=== PATIENT | female | born 1990 | race Two or more races ===

== ENCOUNTER 2020-09-30 09:08 | Outpatient (REF) | payer OTHER, SELFPAY | END 2020-09-30 09:09 | disposition home or self-care (01) | LOC: HO.LAB 09:08 | PROVIDERS: PCP Internal Medicine; Visit Provider Internal Medicine | DX: Z20.828 Contact with and (suspected) exposure to other viral communicable diseases (principal) | CPT/HCPCS: C9803; U0003 ==

== ENCOUNTER 2021-02-11 14:24 | Outpatient (REF) | payer OTHER, SELFPAY ==
--- NOTE | ~2021-02-11 | MR_ITS ---
EXAMINATION: MR BRAIN WITHOUT AND WITH CONTRAST CLINICAL INFORMATION: Galactorrhea. COMPARISON: No relevant prior imaging. TECHNIQUE: Multiplanar MR imaging of the brain was performed without and with contrast. A total of 4.5 mL Gadavist was utilized for this examination. FINDINGS: Dedicated high-resolution imaging through the sella turcica reveals homogeneous enhancement within the anterior lobe of the pituitary gland with no identifiable mass or differential enhancement characteristics. The overall height of the pituitary tissue is within limits of normal variation. No suprasellar mass effect or chiasmatic compression. The pituitary stalk is midline. Cavernous sinuses enhance symmetrically. Cavernous internal carotid artery flow voids are maintained. Postcontrast images of the brain reveal no abnormal mass or enhancement elsewhere within the intracranial compartment. No intracranial mass effect or midline shift. No abnormal extra-axial collection. Lateral and third ventricles are normal. No hydrocephalus. Midline structures including the cervicomedullary junction are normal. No acute bone marrow signal changes. There is no mastoid middle ear effusion. No active paranasal sinus disease. MR/MR head/brain wo/w con IMPRESSION: Normal brain MRI. No identifiable intrasellar mass and and no abnormal differential enhancement characteristics within the anterior lobe of the pituitary gland.
== END 2021-02-11 14:25 | disposition home or self-care (01) ==
LOC: HO.MRI 14:24
PROVIDERS: Visit Provider Internal Medicine
DX: N64.3 Galactorrhea not associated with childbirth (principal)
CPT/HCPCS: 70553; A9585

== ENCOUNTER 2021-02-19 08:11 | Outpatient (REF) | payer OTHER, SELFPAY ==
--- NOTE | ~2021-02-19 | MM_ITS ---
EXAMINATION: MM DIAGNOSTIC DIGITAL BREAST TOMOSYNTHESIS, BILATERAL US DIAGNOSTIC ULTRASOUND BREAST, BILATERAL CLINICAL INFORMATION: 30-year-old with history 1 episode bloody discharge on left with squeezing, 2 drops. No recurrent discharge since. No history contralateral right discharge. No palpable mass. No known family history breast cancer. No prior breast imaging. The lifetime risk of breast cancer based on the Tyrer-Cuzick Model is 8%. COMPARISON: None (current study represents initial baseline exam). TECHNIQUE: Digital breast tomosynthesis is performed in both the craniocaudal and mediolateral oblique views along with computer-aided detection (CAD). Synthesized 2D images are generated from the tomosynthesis. Ultrasound left breast is targeted to the retroareolar region and circumferential periareolar region and posterior outer left breast. Ultrasound right breast is targeted to the upper outer quadrant. Grayscale imaging and color Doppler are performed without and with harmonics bilateral breasts. FINDINGS: There are scattered areas of fibroglandular density (ACR BI-RADS breast composition Category b). There is no mass or architectural abnormality or abnormal calcifications. No focal duct ectasia. Incidental parenchymal asymmetry is noted upper outer right breast and small island posterior outer left breast. Ultrasound bilateral breasts demonstrate no cystic or solid mass, architectural abnormality, or focal duct ectasia on either side. There is no intraductal lesion seen or abnormal color flow. No skin thickening or edema tracking in soft tissue planes. Results are discussed with the patient at time of visit. Patient confirms that the left discharge with 2 drops of bloody fluid with squeezing. She notes no persistent discharge since. Management options discussed including further evaluation with breast MR if the discharge recurs. MM/MM tomosynthesis diagnostic BI IMPRESSION: No mammographic evidence of malignancy. Unremarkable bilateral breast ultrasound. ASSESSMENT: BI-RADS 2: Benign RECOMMENDATION: 1. Patient should be managed based on the clinical impression. If the unilateral discharge recurs, further assessment of the breasts may be obtained with breast MR without and with gadolinium contrast. If there is bilateral nipple discharge, evaluation for systemic endocrine etiology would be recommended. 2. Otherwise, routine annual screening mammography, beginning age 40, or earlier as clinical risk factors warrant. This patient's information was entered into a reminder system with a target due date for their next mammogram.
== END 2021-02-19 08:12 | disposition home or self-care (01) ==
LOC: HO.MAMMO 08:11
PROVIDERS: Visit Provider Internal Medicine
DX: N64.3 Galactorrhea not associated with childbirth (principal)
CPT/HCPCS: 76642; 77062; 77066

== ENCOUNTER 2021-03-04 14:14 | Outpatient (REF) | payer OTHER, SELFPAY ==
[2021-03-04 14:44] LABS: COVID-19 Test Positive (Negative); IDNOW Serial# 55D5AD1C
== END 2021-03-04 14:15 | disposition home or self-care (01) ==
LOC: HO.LAB 14:14
PROVIDERS: Visit Provider Internal Medicine
DX: Z20.822 Contact with and (suspected) exposure to COVID-19 (principal)
CPT/HCPCS: 36415; 87635; C9803

== ENCOUNTER 2021-07-07 11:16 | Emergency (ER) | payer OTHER, SELFPAY ==
[2021-07-07 11:40] VITALS: BP 112/69; PULSE 80; RESP 16; TEMP 36.5; O2SAT 98; BMI 34.0
--- NOTE | 2021-07-07 12:17 | ED_ITS ---
HPI - Back Pain/Injury General Chief Complaint: Back Pain/Injury Stated Complaint: back pain Time Seen by Provider: 07/07/21 12:03 Source: patient Mode of arrival: ambulatory Limitations: no limitations History of Present Illness HPI Narrative: This is a 31 of the female that presents with 1 day of worsening back pain, it is intermittent 10/10 in nature and located solely to her lower back, free of radiation. She states yesterday at work she was lifting a 50 lb box, twisted and felt pain to her lower back. She states that the pain is worse with movement, and better at rest. She states she has had similar pain like this in the past. pain does not radiate into her legs, she denies any paresthesias, bladder/urinary incontinence, chest pain, shortness of breath, fevers, chills, she denies urinary symptoms. She is not an IV drug user, and denies any previous back surgeries. MD elicited complaint: back pain and back injury Pertinent past history: prior back pain Onset (ago): day(s) (1) Timing: intermittent Severity: severe Pain scale (0-10): 10 Similar Symptoms Previously: Yes Quality: spasming and throbbing Location: lumbar spine, right lower back and left lower back Radiation: none Exacerbating factors: movement, walking and lifting Relieving factors: immobilization Context: while lifting and turning/twisting Associated symptoms: denies other symptoms Work related injury: Yes Related Data Previous Rx's Medication Instructions Recorded acetaminophen 500 mg tablet 500 mg PO Q6H PRN #14 tab 07/07/21 (Tylenol Extra Strength) cyclobenzaprine 10 mg tablet 10 mg PO Q8H #14 tab 07/07/21 Allergies Allergy/AdvReac Type Severity Reaction Status Date / Time No Known Allergies Allergy Verified 02/03/21 18:04 [No Known Allergies*] Review of Systems Review of Systems: Constitutional : No trauma, No Weight loss, No Fever, No Chills, ENT/Mouth : No Hearing loss, No Ear Pain, No Nasal Congestion, No Sinus Pain, No Hoarseness, No sore throat, No Rhinorrhea, No Swallowing Difficulty Cardiovascular : No Chest Pain, No SOB Respiratory : No Cough, No Dyspnea Gastrointestinal : No Nausea, No Vomiting, No Diarrhea, No abdominal Pain, No Hematochezia, No Melena Genitourinary : No Dysuria, No Urinary Frequency, No Hematuria, No Urinary or Bowel Incontinence/retention Musculoskeletal : + Back pain, No neck pain, No joint stiffness, No joint swelling Skin : No Skin Lesions, No rash or signs of infection Neuro : No Weakness, No radiation, No Numbness, No Paresthesias, No headache, no loss of bowel or bladder incontinence, no saddle anesthesia, Focal weakness, No radiation Denies history of IV drug usage. Yes all other systems are reviewed and are negative [facility] Past Medical History Attestation statement: The following information was validated with the patient. Medical History Galactorrhea Nipple discharge, bloody Obese Pelvic pain in female Surgical History Hx laparoscopic cholecystectomy Hx of appendectomy Previous section Status post total abdominal hysterectomy Family History Family History Father No problems noted. Mother Hypertension Social History Social History Alcohol intake: current Alcohol intake frequency: holidays/special occasions only Alcohol type: beer Cigarettes Per Day: 6 Advance Directives: No Advance Directives Information Provided: No Patient : No Physical Exam Vital Signs: Vital Signs: Last Vital Signs Temp 97.7 F 07/07/21 11:40 Pulse 80 07/07/21 11:40 Resp 16 07/07/21 11:40 BP 112/69 07/07/21 11:40 Pulse Ox 98 07/07/21 11:40 Body Mass Index 34.0 vital signs have been reviewed as normal and appeared to be correct. Blood pressure normal. Heart rate normal. Respiration rate normal. Temperature normal. Oxygen saturation normal. Appearance: Alert. Oriented X3. No acute distress. Head: Normal external exam. Normocephalic. Atraumatic. No Benjamin signs noted. No raccoon eyes noted Eyes: PERRLA. EOMI. Conjunctiva and sclera normal. Eyelids normal. ENT: EAC normal. TM's Normal. Pharynx normal. Uvula midline. Moist mucous membranes. No trismus noted. No drooling noted. No muffled voice noted. Neck: Normal inspection. Neck supple. FROM. No adenopathy. Thyroid Normal. No meningeal signs. No neck mass noted. CVS: Normal heart rate and rhythm. Heart sound normal. No murmurs noted. Pulses normal throughout. Respiratory: No respiratory distress. Painless inspiration. Breath sounds normal. No wheezes/rales/rhonchi noted. Chest nontender. No accessory muscle usage noted or decreased air movement noted. Abdomen: Soft and nontender. Bowel sounds normal in all 4 quadrants. No distention noted. No organomegaly noted. No visible injury noted. Back: No CVA tenderness. + Full/ painfull range of motion noted. No obvious deformities, or edema. + Mild para-spinal muscular tenderness from lumbar region to coccyx. +Full ROM in back and lower extremities but painful. 5/5 strength hip extension/flexion, abduction, adduction. + Lumbar pain with hip flexion against resistance. + Straight leg raise test positive on right; +Straight leg raise test positive on left; Reflexes normal ankle and knee bilaterally; EHL motor strength normal bilaterally. No rashes/lesion/induration/fluctuance or signs infection noted. Skin: Skin warm and dry. Normal skin color. Normal skin turgor. No rashes/lesions/lacerations noted. Extremities: No lower extremity edema. Extremities exhibit normal range of motion. Extremities nontender. Neuro: Oriented X 3. No motor deficit. No sensory deficit. Reflexes normal. Patient has a normal steady gait. Course Course Course Narrative: This is a 31-year-old female presenting with 1 day of worsening lower back pain. This back pain started after lifting a heavy box at work that weighed approximately 50 lb, she states she lifted the box and twisted to the side, and ever since then she has been having intermittent nonradiating stabbing 10/10 lower back pain. She states that this has happened to her in the past. She denies any urinary symptoms. Upon physical examination the patient is visibly uncomfortable, she has pain with range of motion to the lower back. Positive straight leg raise bilaterally. She is neurologically intact based off of neuro exam. Pt c likely muscular pain, but could be herniated disc. Neuro exam shows no deficits. Not c/w AAA/epidural abscess/dissection.No high risk Hx (Incont, fever, immunosupp, recent surgery/LP, coag, signif trauma, wt loss, puls mass, hx/o Ca, TB, or IVDU) to warrant MRI/CT today. Not c/w Pyelo/UTI/kidney stone/spinal fx. Not cauda equina syndrome. Imaging not currently indicated. DC c meds and f/u. MDM - Back Pain/Injury Medical Records Attestation: I reviewed the patient's medical records. Discharge Plan Discharge Clinical Impression: Lumbago, Encounter for assessment of work-related causation of injury Patient Disposition: Home, Self-Care Instructions: Acute Low Back Pain (ED), Back Pain (ED), Return to Work Instructions (ED) Additional Instructions: Take all medications as prescribed Follow-up with your PCP in 2 days or follow-up with orthopedics if the pain persists for more than 2-3 weeks. Present to the emergency department with new or worsening symptoms, or if he de velops urinary incontinence, fevers, chills, shortness of breath, chest pain. Prescriptions: New cyclobenzaprine 10 mg tablet 10 mg PO Q8H Qty: 14 RF: 0 acetaminophen [Tylenol Extra Strength] 500 mg tablet 500 mg PO Q6H PRN (Reason: pain) Qty: 14 RF: 0 Referrals: Mima Caal MD [Physician] - 2 weeks (Follow-up if pain progresses, or worsens within 2 weeks) Andressa Taylor MD [Primary Care Provider] - 2 days Stand Alone Forms: Work/School Release Print Language: Czech
[2021-07-07] MEDS: Ketorolac Tromethamine 15 MG/ML VIAL 30 MG IM (12:51)
[2021-07-07] MEDS: Lidocaine 4 % Patch ADH..PATCH 1 PATCH TRANSDERMA (12:51)
== END 2021-07-07 12:58 | disposition home or self-care (01) ==
PROVIDERS: Emergency Provider Emergency Medicine; PCP Internal Medicine
DX: S39.92XA Unspecified injury of lower back, initial encounter (principal); X50.0XXA Overexertion from strenuous movement or load, initial encounter; X50.3XXA Overexertion from repetitive movements, initial encounter; X50.9XXA Other and unspecified overexertion or strenuous movements or postures, initial encounter; Y93.9 Activity, unspecified; Y92.9 Unspecified place or not applicable; Y99.0 Civilian activity done for income or pay; Z79.899 Other long term (current) drug therapy; F17.210 Nicotine dependence, cigarettes, uncomplicated; Z71.6 Tobacco abuse counseling
CPT/HCPCS: 96372; 99283; 99284; J1885

== ENCOUNTER 2021-07-27 12:15 | Outpatient (REF) | payer OTHER, SELFPAY ==
[2021-07-27 12:46] LABS: COVID-19 Test Negative (Negative)
== END 2021-07-27 12:16 | disposition home or self-care (01) ==
LOC: HO.LAB 12:15
PROVIDERS: PCP Internal Medicine; Visit Provider Internal Medicine
DX: Z20.822 Contact with and (suspected) exposure to COVID-19 (principal)
CPT/HCPCS: 36415; 87635; C9803

== ENCOUNTER 2021-08-13 15:38 | Outpatient (REF) | payer OTHER, SELFPAY | END 2021-08-13 15:39 | disposition home or self-care (01) | LOC: HO.LAB 15:38 | PROVIDERS: PCP Internal Medicine; Visit Provider Internal Medicine | DX: Z20.822 Contact with and (suspected) exposure to COVID-19 (principal) | CPT/HCPCS: C9803; U0003; U0005 ==

== ENCOUNTER 2021-09-22 12:34 | Outpatient (REF) | payer OTHER, SELFPAY | END 2021-09-22 12:35 | disposition home or self-care (01) | LOC: HO.LAB 12:34 | PROVIDERS: PCP Internal Medicine; Visit Provider Internal Medicine | DX: Z20.822 Contact with and (suspected) exposure to COVID-19 (principal) | CPT/HCPCS: C9803; U0003; U0005 ==

== ENCOUNTER 2022-09-07 13:32 | Outpatient (REF) | payer OTHER, SELFPAY ==
[2022-09-07 14:25] LABS: COVID-19 Test Negative (Negative); IDNOW Serial# BCCEAD1C
== END 2022-09-07 13:33 | disposition home or self-care (01) ==
LOC: HO.LAB 13:32
PROVIDERS: Visit Provider Internal Medicine
DX: Z20.822 Contact with and (suspected) exposure to COVID-19 (principal)
CPT/HCPCS: 87635; C9803

== ENCOUNTER 2022-11-21 16:22 | Emergency (ER) | payer OTHER, SELFPAY ==
--- NOTE | 2022-11-21 16:39 | ED.URI ---
HPI - URI/Sore Throat General Chief Complaint: General Medical Stated Complaint: pain in thraot Source: patient Mode of arrival: ambulatory History of Present Illness HPI Narrative: 32-year-old female with no significant past medical history presenting to the ED complaining of sore throat, dry cough, nasal congestion, and difficulty/painful swelling x2 days. Denies known fever, chills, ear pain, SOB/CP, sick contacts. MD elicited complaint: sore throat, rhinorrhea and nasal congestion Onset (ago): day(s) Related Data Previous Rx's Medication Instructions Recorded acetaminophen 500 mg tablet 500 mg PO Q6H PRN pain #14 tabs 07/07/21 (Tylenol Extra Strength) cyclobenzaprine 10 mg tablet 10 mg PO Q8H Muscle spasm #14 tabs 07/07/21 amoxicillin 875 mg-potassium 1 tab PO BID 7 days #14 tabs 11/21/22 clavulanate 125 mg tablet Allergies Allergy/AdvReac Type Severity Reaction Status Date / Time No Known Allergies Allergy Verified 11/21/22 16:44 [No Known Allergies*] Review of Systems Review of Systems: Constitutional: No Fever, No Chills ENT/Mouth: No Ear Pain, + Nasal Congestion, No Sinus Pain, + Hoarseness, + sore throat, + Rhinorrhea, + Swallowing Difficulty Cardiovascular: No Chest Pain, No SOB Respiratory: + Cough, No Sputum, No Wheezing Gastrointestinal: No Nausea, No Vomiting, No Abdominal pain Genitourinary: No Dysuria, No Urinary Frequency, No Hematuria, No Flank Pain Musculoskeletal: No joint pain, No Myalgias, No Joint Swelling Skin: No Skin Lesions, No rash Neuro: No Weakness Yes all other systems are reviewed and are negative Constitutional: Constitutional: Reports as per HPI [facility] Past Medical History Attestation statement: The following information was validated with the patient. Medical History Galactorrhea Nipple discharge, bloody Obese Pelvic pain in female Surgical History Hx laparoscopic cholecystectomy Hx of appendectomy Previous section Status post total abdominal hysterectomy Family History Family History Father No problems noted. Mother Hypertension Social History Social History Alcohol intake: current Alcohol intake frequency: holidays/special occasions only Alcohol type: beer Cigarettes Per Day: 6 Advance Directives: No Advance Directives Information Provided: No Physical Exam Vital Signs: Vital Signs: Last Vital Signs Temp 97.5 F 11/21/22 16:40 Pulse 97 11/21/22 16:40 Resp 16 11/21/22 16:40 BP 125/71 11/21/22 16:40 Pulse Ox 98 11/21/22 16:40 O2 Del Method 11/21/22 16:40 BMI result Body Mass Index 34.7 Const: General: cooperative, healthy appearing and no acute distress Orientation/consciousness: patient oriented x3 Limitations: no limitations HEENT: Other: Mildly muffled/hoarse voice Head: Yes normal to inspection and Yes atraumatic Ears: hearing grossly normal bilaterally, external ears normal, TM's normal bilaterally and mastoids normal General nose exam: Normal external nose present Face and sinus: Yes normal facial exam Mouth: no drooling Throat: Yes uvula midline, Yes abnormal tonsil (+ bilateral tonsillar swelling, erythema and exudate), No peritonsillar mass and No uvula laterally displaced Eyes: General: appearance normal, both eyes and all related structures EOM: EOMs intact bilaterally Neck: Other: + bilateral submandibular lymphadenopathy Neck: Yes normal visual inspection, Yes no meningeal signs and No anterior neck swelling Resp: Effort & Inspection: normal respiratory effort, no respiratory distress and no stridor Auscultation: clear to auscultation bilaterally Cardio: Rate: regular rate Heart sounds: S1 normal heart sound present and S2 normal heart sound present Skin: Rashes: no rashes Wounds: no wounds Neuro: General: patient oriented x3, tone normal and no meningeal signs Gait exam (Neuro): Normal gait present Extrem: General: Yes normal to inspection Course Course Course Narrative: RME-- 32yo F c/o sore throat x2 days with difficulty swallowing. Also reports dry cough & congestion. Denies fever, chills, N/V/D Muffled voice, +bilateral tonsillar swelling w/exudates noted. Uvula midline. No evidence of KINESIOLOGIST at this time COVID/FLU, rapid strep & PO Decadron & Ibuprofen ordered -1900--rapid strep positive. COVID-19/influenza/RSV negative. Patient tolerate p.o. medications without difficulty Results discussed with patient including worrisome signs and symptoms and strict return precautions, and when to return to the emergency department. They verbalized understanding and feel safe for discharge at this time. Medical Decision Making Medical Decision Making [facility] Narrative: 32-year-old female with no significant past medical history presenting to the ED complaining of sore throat, dry cough, nasal congestion, and difficulty/painful swelling x2 days. On exam vital signs stable, NAD, nontoxic appearing, mild hoarse/muffled voice, handling secretions, talking in complete sentences, bilateral tonsillar swelling with exudates noted, uvula midline, no evidence of KINESIOLOGIST. No evidence of mastoiditis or otitis. Concern for viral illness and strep pharyngitis vs mononucleosis Plan: COVID-19/influenza/RSV, rapid strep, p.o. Decadron, PO ibuprofen Please refer to course for remaining clinical decision making, interpretation of labs/imaging results, and discussions with consultants and/or family members. Differential Diagnosis Differential Diagnoses: The differential diagnosis associated with the presentation includes as above Lab Data [facility] Lab Attestation statement: I reviewed the patient's lab results. Labs: Lab Results 11/21/22 11/21/22 Range/Units 16:53 16:53 Influenza Type A (PCR) NEGATIVE (Negative) Influenza Type B (PCR) NEGATIVE (Negative) RSV RNA Qual (PCR) NEGATIVE (Negative) SARS-CoV-2 RNA (RT-PCR) NEGATIVE (Negative) S. pyogenes GrpA TORSTEN Positive A (Negative) Prescription Management I considered prescription management with: Pain Medication and Antibiotic Discharge Plan Discharge Clinical Impression: Strep pharyngitis Patient Disposition: Home, Self-Care Instructions: Strep Throat (ED) Additional Instructions: You have strep throat. Augmentin is antibiotic please take as prescribed. You were given a dose of oral steroid in the ED this will take 24 hours to fully kick in. Take Tylenol and Motrin at home for pain and swelling. Gargle with warm salt water. Please have close follow-up with her doctor. If symptoms persist or worsen, you develop high fever unresolved with medications, you are unable to swallow, shortness of breath return to the ED Tienes faringitis estreptoc?cica. Augmentin es un antibi?terrell, t?vázquez seg?n lo prescrito. Se le administr? julianne dosis de esteroides orales en el servicio de urgencias que tardar? 24 horas en hacer efecto por completo. [place] Tylenol y Motrin en casa para el dolor y la hinchaz?n. Claus g?rgaras con agua tibia con bertrand. Tenga un seguimiento cercano con montemayor m?dico. Si los s?ntomas persisten o empeoran, tiene fiebre dominic que no se resuelve con medicamentos, no puede tragar, dificultad para respirar, regrese al servicio de urgencias. Prescriptions: New amoxicillin-pot clavulanate 875-125 mg tablet 1 tab PO BID 7 Days Qty: 14 0RF No Action cyclobenzaprine 10 mg tablet 10 mg PO Q8H Qty: 14 0RF acetaminophen [Tylenol Extra Strength] 500 mg tablet 500 mg PO Q6H PRN (Reason: pain) Qty: 14 0RF Referrals: Andressa Taylor MD [Primary Care Provider] - 2 days Stand Alone Forms: Work/School Release Print Language: Mongolian
[2022-11-21 16:40] VITALS: BP 125/71; PULSE 97; RESP 16; TEMP 36.4; O2SAT 98; BMI 34.7
[2022-11-21 17:03] LABS: IDNOW Serial# 6674DD1D
[2022-11-21 17:04] LABS: Strep A Nucleic Acid Positive (Negative)
[2022-11-21 17:43] LABS: Influenza A PCR NEGATIVE (Negative); Influenza B PCR NEGATIVE (Negative); Resp Syncy Virus RNA Qual PCR NEGATIVE (Negative); SARS COV2 PCR INHOUSE NEGATIVE (Negative)
[2022-11-21] MEDS: Amoxicillin/Potassium Clav 875 MG TABLET PO (19:01)
[2022-11-21] MEDS: dexAMETHasone sod phosphate 10 MG/ML VIAL IVPUSH (19:01)
[2022-11-21] MEDS: Ibuprofen 800 MG TABLET PO (19:01)
== END 2022-11-21 19:11 | disposition home or self-care (01) ==
PROVIDERS: Physician Assistant; Emergency Provider Internal Medicine; PCP Internal Medicine
DX: J02.0 Streptococcal pharyngitis (principal); R07.0 Pain in throat; Z20.822 Contact with and (suspected) exposure to COVID-19; Z20.828 Contact with and (suspected) exposure to other viral communicable diseases
CPT/HCPCS: 0241U; 36415; 87651; 96374; 99283; 99284; J1100

== ENCOUNTER 2023-02-21 11:23 | Emergency (ER) | payer OTHER, SELFPAY ==
--- NOTE | ~2023-02-21 | US_ITS ---
EXAMINATION: US PELVIS CLINICAL INFORMATION: Lower abdominal pain. Question ovarian cyst. COMPARISON: Previous CT of the abdomen and pelvis 2018 TECHNIQUE: Ultrasound of the pelvis is performed using both transabdominal and transvaginal transducers along with Doppler. Transvaginal imaging is performed due to inadequate visualization transabdominally. FINDINGS: The uterus has been removed. There is a small amount of fluid seen in the endocervical canal. There are nabothian cysts in the cervix. The right ovary measures 2.2 x 1.9 x 2 cm. There is a small slightly complex right ovarian cyst with septations measuring 1.3 cm. According to patient age and size of cyst, no imaging follow-up recommended. The left ovary is normal and measures 3.3 x 2 4 x 2.9 cm. There is no fluid in the pelvis. US/US pelvic and transvaginal IMPRESSION: Post hysterectomy. Small amount of fluid in the endocervical canal. Nabothian cysts in the cervix. Small slightly complex right ovarian cyst measuring 1.3 cm.
[2023-02-21 11:31] VITALS: BP 129/76; PULSE 83; RESP 18; TEMP 36.6; O2SAT 98; BMI 34.0
[2023-02-21 11:47] LABS: MANUAL DIFF FLAG NO
[2023-02-21 11:49] LABS: Basophils Absolute Auto 0.1 X10*3/uL (0.0-0.2); Basophils Percent Auto 0.6 % (0-2); Eosinophils Absolute Auto 0.4 X10*3/uL (0.0-0.4); Eosinophils Percent Auto 4.4 % (0-4); Hemoglobin 13.3 g/dl (12.0-16.0); Imm Gran Abs Auto 0.04 X10*3/uL (0.00-0.03); Imm Gran Pct Auto 0.5 % (0.0-0.4); Lymphocytes Absolute Auto 2.2 X10*3/uL (1.2-4.9); Lymphocytes Percent Auto 25.6 % (20-40); Mean Corpuscular HGB Conc 31.7 g/dl (31.0-35.0); Mean Corpuscular Volume 85.2 fL (80.0-98.0); Mean Platelet Volume 9.8 fL (9.4-12.3); Monocytes Absolute Auto 0.6 X10*3/uL (0.1-1.2); Monocytes Percent Auto 6.7 % (2-11); Neutrophils Absolute Auto 5.3 x10*3/uL (2.0-8.3); Neutrophils Percent Auto 62.2 % (45-73); Platelet Count 351 X10*3/uL (160-400); Red Blood Count 4.93 X10*6/uL (4.20-5.50); Red Cell Distribution Width 13.8 % (11.0-16.0); White Blood Count 8.5 X10*3/uL (4.8-10.8)
[2023-02-21 11:51] LABS: Appearance Urine Clear; Color Urine Yellow; Glucose Urine UA Negative (Negative); Leukocyte Esterase Urine Negative (Negative); Nitrite Urine Negative (Negative); PH 7.5 (5.0-9.0); Specific Gravity - Urine 1.025 (1.005-1.025); Urine Blood Negative (Negative); Urine Ketones Negative (Negative); Urine Protein Trace mg/dL (Neg-Trace)
[2023-02-21 11:52] LABS: Urine Pregnancy NEGATIVE (NEGATIVE)
[2023-02-21 11:53] LABS: UPreg QC Valid YES
[2023-02-21 12:04] LABS: Anion Gap 10 (12-20); Blood Urea Nitrogen 7 mg/dL (9-16); Calcium 9.3 mg/dL (8.4-10.2); Carbon Dioxide 23 mmol/L (22-29); Chloride 110 mmol/L (96-108); Creatinine Clr Calc Pharmacy 97.2; Estimated Glomerular Filt Rate > 60; Glucose Random 123 mg/dL (60-115); Potassium 4.4 mmol/L (3.3-5.1); Sodium 139 mmol/L (135-145)
--- NOTE | 2023-02-21 16:27 | ED_ITS ---
HPI - General Adult General Chief complaint: Abdominal Pain Stated complaint: lower abd pain Time Seen by Provider: 02/21/23 16:27 Source: patient and director web Mode of arrival: ambulatory Limitations: language barrier History of Present Illness HPI narrative: Patient is a 32 year old assigned female at with a history of pelvic pain presenting to the emergency department today with left sided abdominal pain. Patient states that she had a brief episode of left sided abdominal pain that has since subsided. Patient states that she no longer has her uterus. Patient denies any dizziness, lightheadedness, fever, chills, blurry vision, double vision, loss of vision, chest pain, difficulty breathing, shortness of breath, back pain, night sweats, pain with urination, increased urinary frequency, increased urinary urgency, blood in her urine or stool, syncope or a near syncopal episode, recent trauma or falls, bowel incontinence, bladder incontinence, bowel retention, bladder retention, or any other complaints at this time. Onset (ago): day(s) (1) Location: abdomen Radiation: non-radiation Severity: mild Severity scale (1-10): 2 Quality: stabbing Pain Consistency: intermittent and now resolved Relieving factors: none Exacerbating factors: none Associated symptoms: denies other symptoms Treatments prior to arrival: none Related Data Previous Rx's Medication Instructions Recorded acetaminophen 500 mg tablet 500 mg PO Q6H PRN pain #14 tabs 07/07/21 (Tylenol Extra Strength) cyclobenzaprine 10 mg tablet 10 mg PO Q8H Muscle spasm #14 tabs 07/07/21 amoxicillin 875 mg-potassium 1 tab PO BID 7 days #14 tabs 11/21/22 clavulanate 125 mg tablet Allergies Allergy/AdvReac Type Severity Reaction Status Date / Time No Known Allergies Allergy Verified 02/21/23 11:31 [No Known Allergies*] Review of Systems Constitutional: Constitutional: Reports no additional constitutional complaints, Denies chills, Denies fever(s) and Denies night sweats Eyes: Eyes: Reports no additional eye complaints, Denies blurry vision, Denies change in vision, Denies diplopia, Denies eye discharge, Denies loss of vision and Denies eye pain ENT: Denies dizziness Cardiovascular: Cardiovascular: Reports no additional cardiovascular complaints, Denies chest pain, Denies lightheadedness, Denies Loss of Consc iousness and Denies dyspnea Respiratory: Respiratory: Reports no additional respiratory complaints and Denies dyspnea Gastrointestinal: Gastrointestinal: Reports no additional gastrointestinal complaints, Reports abdominal pain, Denies melena, Denies hematochezia, Denies change in bowel habits and Denies change in stool character Genitourinary: Genitourinary: Denies hematuria, Denies urinary frequency, Denies dysuria, Denies urinary incontinence, Denies urinary hesitancy and Denies urinary urgency Musculoskeletal: Musculoskeletal: Reports no additional musculoskeletal complaints, Denies numbness and Denies tingling Neurologic: Denies dizziness, Denies loss of vision, Denies numbness and Denies tingling Psychiatric: Psychiatric: Reports no additional psychiatric complaints Endocrine: Endocrine: Reports no additional endocrine complaints Hematologic/Lymphatic: Hematologic/Lymphatic: Reports no additional hematologic/lymphatic complaints Allergic/Immunologic: Allergic/Immunologic: Reports no additional allergic/immunologic complaints PMFSH Past Medical History Attestation statement: The following information was validated with the patient. Source: old records reviewed and nursing notes reviewed Medical History Galactorrhea Nipple discharge, bloody Obese Pelvic pain in female Surgical History Hx laparoscopic cholecystectomy Hx of appendectomy Previous section Status post total abdominal hysterectomy Family History Family History Father No problems noted. Mother Hypertension Social History Social History Alcohol intake: current Alcohol intake frequency: holidays/special occasions only Alcohol type: beer Cigarettes Per Day: 6 Advance Directives: No Physical Exam ED Vital Signs: Vital Signs - 24 hr 02/21/23 11:31 Temperature 98 F Pulse Rate 83 Respiratory Rate 18 Blood Pressure 129/76 Pulse Oximetry 98 BMI result Body Mass Index 34.0 Const General: cooperative, no acute distress, alert and awake Nutritional Appearance: well nourished Orientation/consciousness: patient oriented x3 Limitations: no limitations HENMT Head: Yes normal to inspection and Yes atraumatic Ears: hearing grossly normal bilaterally and external ears normal General nose exam: Normal external nose present, no nasal discharge noted and no epistaxis Face and sinus: Yes normal facial exam, No abrasion and No laceration Mouth: Normal oral and palatal mucosa present, no drooling and no muffled voice Eyes General: appearance normal, both eyes and all related structures Periorbital: periorbital findings normal Eyelids: Yes eyelids normal Conjunctivae: conjunctivae normal Pupils: Equal, round and reactive pupils present EOM: EOMs intact bilaterally Neck Neck: Yes normal visual inspection, Yes full ROM and Yes no lymphadenopathy Chest Chest palpation & inspection: normal inspection of the chest Resp Effort & Inspection: normal respiratory effort and able to speak in complete sentences GI Inspection: Yes normal to inspection Palpation (GI): Soft to palpation, not firm, nontender, no guarding and not rigid Neuro General: patient oriented x3 and moves all extremities Cranial nerves: Yes Equal, round and reactive pupils present Cognition (Neuro): normal cognition Motor exam (neuro): 5/5 motor strength present throughout Sensory Exam: Normal double simultaneous stimulation for sensation Coordination: [id number] test normal Extrem General: Yes normal to inspection, Yes full ROM and Yes capillary refill normal Psych Appearance: grossly normal Mental Status: mental status grossly normal Affect: normal affect Attitude: cooperative Thought process: Normal thought process present Thought content: Normal thought content present Insight: Good insight present (Psych) Medical Decision Making Medical Decision Making [facility] Narrative: Patient is a 32 year old assigned female at with a history of pelvic pain presenting to the emergency department today with left sided abdominal pain. Patient's physical exam was unremarkable. Patient's blood work was unremarkable. Patient's urine showed no acute process. Patient's pelvic US showed evidence of ovarian cysts. I explained my physical exam findings as well as all test results to the patient. I answered all questions asked by the patient. Patient received IM Toradol which she stated helped her symptoms significantly. I stressed the importance of the patient taking her medication as prescribed. I stressed the importance of the patient following up with her primary care provider. I stressed the importance of the patient returning to the emergency department imm ediately if her symptoms were to worsen or if she were to develop any dizziness, shortness of breath, difficulty breathing, chest pain, blurry vision, loss of vision, nausea, vomiting, abdominal pain, fever, chills, back pain, or any other complaints. Patient verbalized agreement and understanding with this treatment plan and discharge. Differential Diagnosis Differential Diagnoses: The differential diagnosis associated with the presen tation includes abdominal pain, ovarian cyst Lab Data MDM Lab Attestation statement: I reviewed the patient's lab results. 02/21/23 11:40 02/21/23 11:40 Labs: Lab Results 02/21/23 02/21/23 02/21/23 Range/Units 11:40 11:40 11:40 WBC 8.5 (4.8-10.8) X10*3/uL RBC 4.93 (4.20-5.50) X10*6/uL Hgb 13.3 (12.0-16.0) g/dl Hct 42.0 (37.0-47.0) % MCV 85.2 (80.0-98.0) fL MCH 27.0 (27.0-33.0) pg MCHC 31.7 (31.0-35.0) g/dl RDW 13.8 (11.0-16.0) % Plt Count 351 (160-400) X10*3/uL MPV 9.8 (9.4-12.3) fL Immature Gran % (Auto) 0.5 H (0.0-0.4) % Neut % (Auto) 62.2 (45-73) % Lymph % (Auto) 25.6 (20-40) % Hardy % (Auto) 6.7 (2-11) % Eos % (Auto) 4.4 H (0-4) % Baso % (Auto) 0.6 (0-2) % Lymph # (Auto) 2.2 (1.2-4.9) X10*3/uL Hardy # (Auto) 0.6 (0.1-1.2) X10*3/uL Eos # (Auto) 0.4 (0.0-0.4) X10*3/uL Baso # (Auto) 0.1 (0.0-0.2) X10*3/uL Abs Immat Gran (auto) 0.04 H (0.00-0.03) X10*3/uL Absolute Neuts (auto) 5.3 (2.0-8.3) x10*3/uL Absolute Nucleated RBC 0.000 (0.0-0.012) X10*3/uL Nucleated RBC % (auto) 0.0 (0.0-0.2) /100WBC Sodium 139 (135-145) mmol/L Potassium 4.4 (3.3-5.1) mmol/L Chloride 110 H (96-108) mmol/L Carbon Dioxide 23 (22-29) mmol/L Anion Gap 10 L (12-20) BUN 7 L (9-16) mg/dL Creatinine 0.79 (0.5-1.4) mg/dL Estim Creat Clear Calc 97.2 Estimated GFR > 60 Random Glucose 123 H (60-115) mg/dL Calcium 9.3 (8.4-10.2) mg/dL Urine Color Yellow Urine Appearance Clear Urine pH 7.5 (5.0-9.0) Ur Specific [place] 1.025 (1.005-1.025) Urine Protein Trace (Neg-Trace) mg/dL Urine Glucose (UA) Negative (Negative) mg/dL Urine Ketones Negative (Negative) mg/dL Urine Blood Negative (Negative) Urine Nitrite Negative (Negative) Ur Leukocyte Esterase Negative (Negative) Urine Test (NEGATIVE) 02/21/23 Range/Units 11:40 WBC (4.8-10.8) X10*3/uL RBC (4.20-5.50) X10*6/uL Hgb (12.0-16.0) g/dl Hct (37.0-47.0) % MCV (80.0-98.0) fL MCH (27.0-33.0) pg MCHC (31.0-35.0) g/dl RDW (11.0-16.0) % Plt Count (160-400) X10*3/uL MPV (9.4-12.3) fL Immature Gran % (Auto) (0.0-0.4) % Neut % (Auto) (45-73) % Lymph % (Auto) (20-40) % Hardy % (Auto) (2-11) % Eos % (Auto) (0-4) % Baso % (Auto) (0-2) % Lymph # (Auto) (1.2-4.9) X10*3/uL Hardy # (Auto) (0.1-1.2) X10*3/uL Eos # (Auto) (0.0-0.4) X10*3/uL Baso # (Auto) (0.0-0.2) X10*3/uL Abs Immat Gran (auto) (0.00-0.03) X10*3/uL Absolute Neuts (auto) (2.0-8.3) x10*3/uL Absolute Nucleated RBC (0.0-0.012) X10*3/uL Nucleated RBC % (auto) (0.0-0.2) /100WBC Sodium (135-145) mmol/L Potassium (3.3-5.1) mmol/L Chloride (96-108) mmol/L Carbon Dioxide (22-29) mmol/L Anion Gap (12-20) BUN (9-16) mg/dL Creatinine (0.5-1.4) mg/dL Estim Creat Clear Calc Estimated GFR Random Glucose (60-115) mg/dL Calcium (8.4-10.2) mg/dL Urine Color Urine Appearance Urine pH (5.0-9.0) Ur Specific [place] (1.005-1.025) Urine Protein (Neg-Trace) mg/dL Urine Glucose (UA) (Negative) mg/dL Urine Ketones (Negative) mg/dL Urine Blood (Negative) Urine Nitrite (Negative) Ur Leukocyte Esterase (Negative) Urine Test NEGATIVE (NEGATIVE) Independent Interpretation I performed an independent interpretation of an: Ultrasound Interpretation: My interpretation is in agreement with the radiologist's impression of this imaging study. EXAMINATION:? US PELVIS CLINICAL INFORMATION:? Lower abdominal pain. Question ovarian cyst. COMPARISON: Previous CT of the abdomen and pelvis 2017 TECHNIQUE: Ultrasound of the pelvis is performed using both transabdominal and transvaginal transducers along with Doppler. Transvaginal imaging is performed due to inadequate visualization transabdominally. FINDINGS: The uterus has been removed. There is a small amount of fluid seen in the endocervical canal. There are nabothian cysts in the cervix. The right ovary measures 2.2 x 1.9 x 2 cm. There is a small slightly complex right ovarian cyst with septations measuring 1.3 cm. According to patient age and size of cyst, no imaging follow-up recommended. The left ovary is normal and measures 3.3 x 2 4 x 2.9 cm. There is no fluid in the pelvis. US/US pelvic and transvaginal IMPRESSION: Post hysterectomy. Small amount of fluid in the endocervical canal. Nabothian cysts in the cervix. Small slightly complex right ovarian cyst measuring 1.3 cm. Dictated By: Anitra Contreras MD Signed By: Electronically signed by Anitra Contreras MD 02/21/23 [id number] Discharge Plan Discharge Clinical Impression: Ovarian cyst Patient Disposition: Home, Self-Care Instructions: Ovarian Cyst (ED) Additional Instructions: Follow up with your primary care provider and an OBGYN. Return to the emergency department immediately if your symptoms worsen or if you develop any dizziness, shortness of breath, difficulty breathing, chest pain, blurry vision, loss of vi silvina, nausea, vomiting, abdominal pain, fever, chills, back pain, or any other complaints. Claus un seguimiento con montemayor proveedor de atenci?n primaria y un obstetra y ginec?logo. Regrese al departamento de emergencias de inmediato si hugh s?ntomas empeoran o si presenta mareos, falta de aire, dificultad para respirar, dolor de pecho, visi?n borrosa, p?rdida de la visi?n, n?useas, v?mitos, dolor abdominal, fiebre, escalofr?os, dolor de espalda o cualquier otras quejas. Prescriptions: No Action cyclobenzaprine 10 mg tablet 10 mg PO Q8H Qty: 14 0RF acetaminophen [Tylenol Extra Strength] 500 mg tablet 500 mg PO Q6H PRN (Reason: pain) Qty: 14 0RF amoxicillin-pot clavulanate 875-125 mg tablet 1 tab PO BID 7 Days Qty: 14 0RF Referrals: Andressa Taylor MD [Primary Care Provider] - Emeka Jauregui MD [Physician] - (Call to establish and follow up with an OBGYN. Llame para establecer y hacer un seguimiento con un obstetra y ginec?logo. ) Stand Alone Forms: Work/School Release Print Language: Greek
== END 2023-02-21 17:16 | disposition home or self-care (01) ==
PROVIDERS: Emergency Provider Emergency Medicine; PCP Internal Medicine
DX: N83.209 Unspecified ovarian cyst, unspecified side (principal); R10.31 Right lower quadrant pain; N83.201 Unspecified ovarian cyst, right side; Z79.899 Other long term (current) drug therapy
CPT/HCPCS: 36415; 76830; 76856; 80048; 81003; 81025; 85025; 99282; 99284

== ENCOUNTER → 2023-04-14 15:08 | Outpatient (BNVA) | payer OTHER, SELFPAY | PROVIDERS: PCP Internal Medicine; Visit Provider Obstetrics & Gynecology | DX: N83.292 Other ovarian cyst, left side (principal); N88.8 Other specified noninflammatory disorders of cervix uteri; Z90.710 Acquired absence of both cervix and uterus | CPT/HCPCS: 99212 ==

== ENCOUNTER 2023-07-04 15:09 | Outpatient (AMB) | payer OTHER, SELFPAY ==
[2023-07-04 15:33] VITALS: BP 110/70; BMI 36.5
--- NOTE | 2023-07-04 15:33 | A.OFFVIS_ITS ---
Intake Vital Signs 07/04/23 15:33 Height 5 ft 1 in Weight 193 lb BMI 36.5 BP 110/70 Intake Visit Reasons: [employer] annual exam Intake Note: no concerns Sales Donor Recruitment Representative Required: Yes Sales Donor Recruitment Representative Language: Operations Section Manager Name: Debra BILLS Information Interpreted: non-clinical & clinical Ski Topper: Ski Topper Present (Debra BILLS) Accompanied by: Self / Same As Patient Allergies No Known Allergies [No Known Allergies*] Allergy (Verified 07/04/23 15:38) Is last menstrual period known: No HPI HPI Comments History of Present Illness Details Presenting for annual exam. No complaints. Last Pap was in 2014 was negative, no HPV done Pelvic ultrasound done in 03/08 showed a left 1.3 cm complex ovarian cyst PFSH Medical History Nipple discharge, bloody Pelvic pain in female Galactorrhea Obese Surgical History Previous section Status post total abdominal hysterectomy Hx laparoscopic cholecystectomy Hx of appendectomy Family History Father No problems noted. 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 Sexually active: Yes Female Reproductive History Menstrual Menopause type: surgical Total pregnancies: 4 Full term: 3 Number of Living Children: 3 Review of Systems Const All systems reviewed & are unremarkable except as noted in HPI and below Card Reports as per HPI and Reports no additional complaints Resp Reports as per HPI and Reports no additional complaints GI Reports as per HPI and Reports no additional complaints Reports as per HPI Physical Exam Vital Signs: Last Vital Signs BP 110/70 07/04/23 15:33 BMI result Body Mass Index 36.5 Const General: cooperative, healthy appearing and comfortable Chest Chest palpation & inspection: normal inspection of the chest Breast/axilla inspection: normal inspection of the breasts Resp Effort & Inspection: normal respiratory effort Auscultation: clear to auscultation bilaterally Percussion: percussion normal Cardio Rate: regular rate Rhythm: regular rhythm GI Palpation (GI): Soft to palpation and nontender General: Yes bladder normal to palpation External Female Exam: No lesion Speculum Exam - Vagina: normal appearance of the vagina, normal vaginal discharge and not erythematous Speculum Exam - Cervix: normal appearance of the cervix Bimanual exam- vagina & uterus: bladder normal to palpation and uterus absent Bimanual Exam- Adnexa, other: Other (No masses detected) Assessment & Plan Assessment & Plan (1) Well woman exam: Code(s): Z01.419 - Encounter for gynecological examination (general) (routine) without abnormal findings Plan: Cotesting done. Counseled the patient about the recommended dietary allowance of 1000 mg of Calcium & 600 IU of vitamin D. The patient was instructed to perform monthly self-breast exams and to schedule an annual exam in a year; All questions answered and the patient verbalized understanding. Instructed the patient to schedule annual exam in a year (2) Complex ovarian cyst: Code(s): N83.299 - Other ovarian cyst, unspecified side Plan: Pelvic ultrasound ordered, instructions given to patient to schedule a 2 week ultrasound follow-up appointment. All questions answered, the patient verbalized understanding Quality Reporting (2019) Adult ([facility] 138/12/08/68) Smoking risk assessment performed?: Yes Coding Level of Care Code Est Pt Prev Care 18-39y(74840) Diagnoses Well woman exam Z01.419 Complex ovarian cyst N83.299
== END 2023-07-04 16:11 | disposition home or self-care (01) ==
PROVIDERS: PCP Internal Medicine; Visit Provider Obstetrics & Gynecology
DX: Z01.419 Encounter for gynecological examination (general) (routine) without abnormal findings (principal); N83.299 Other ovarian cyst, unspecified side
CPT/HCPCS: 99395

== ENCOUNTER 2023-07-04 15:09 | Outpatient (REF) | payer OTHER, SELFPAY ==
[2023-07-08 02:59] LABS: HPV mRNA E6/E7 rflx Not Detected (Not Detected)
== END 2023-07-04 15:10 | disposition home or self-care (01) ==
LOC: HO.LNP 15:09
PROVIDERS: PCP Internal Medicine; Visit Provider Obstetrics & Gynecology
DX: Z01.419 Encounter for gynecological examination (general) (routine) without abnormal findings (principal); Z11.51 Encounter for screening for human papillomavirus (HPV); N83.299 Other ovarian cyst, unspecified side
CPT/HCPCS: 87624; 88142; 99395

== ENCOUNTER 2023-07-18 09:23 | Emergency (ER) | payer OTHER, SELFPAY ==
[2023-07-18 09:54] VITALS: BP 142/80; PULSE 80; RESP 19; TEMP 36.4; O2SAT 100; BMI 36.6
--- NOTE | 2023-07-18 10:36 | ED_ITS ---
HPI - General Adult General Chief complaint: Back Pain/Injury Stated complaint: Back pain Time Seen by Provider: 07/18/23 10:33 Source: patient and spanish speaking babysitter Mode of arrival: ambulatory Limitations: language barrier History of Present Illness HPI narrative: Patient is a 33 year old assigned female at with a history of ovarian cysts presenting to the emergency department today with right sided low back pain. Patient states that she was bent forward brushing her teeth when the pain came on. Patient states that movement makes it worse. Patient denies any dizziness, lightheadedness, abdominal pain, nausea, vomiting, fever, chills, blurry vision, double vision, loss of vision, chest pain, difficulty breathing, shortness of breath, night sweats, pain with urination, increased urinary frequency, increased urinary urgency, blood in her urine or stool, syncope or a near syncopal episode, recent trauma or falls, bowel incontinence, bladder incontinence, bowel retention, bladder retention, or any other complaints at this time. Onset (ago): minute(s) Location: back and right Severity: mild Severity scale (1-10): 3 Quality: aching and dull Pain Consistency: constant Relieving factors: none Exacerbating factors: none Associated symptoms: denies other symptoms Treatments prior to arrival: none Related Data Previous Rx's Medication Instructions Recorded cyclobenzaprine 5 mg tablet 5 mg PO TID PRN pain 7 days #21 07/18/23 tabs naproxen 500 mg tablet 500 mg PO BID 7 days #14 tabs 07/18/23 Allergies Allergy/AdvReac Type Severity Reaction Status Date / Time No Known Allergies Allergy Verified 07/04/23 15:38 [No Known Allergies*] Review of Systems Constitutional: Constitutional: Reports no additional constitutional complaints, Denies chills, Denies fever(s) and Denies night sweats Eyes: Eyes: Reports no additional eye complaints, Denies blurry vision, Denies change in vision, Denies diplopia, Denies eye discharge, Denies loss of vision and Denies eye pain ENT: Denies dizziness Cardiovascular: Cardiovascular: Reports no additional cardiovascular complaints, Denies chest pain, Denies lightheadedness, Denies Loss of Consciousness and Denies dyspnea Respiratory: Respiratory: Reports no additional respiratory complaints and Denies dyspnea Gastrointestinal: Gastrointestinal: Reports no additional gastrointestinal complaints, Denies abdominal pain, Denies melena, Denies hematochezia, Denies change in bowel habits and Denies change in stool character Genitourinary: Genitourinary: Denies hematuria, Denies urinary frequency, Denies dysuria, Denies urinary incontinence, Denies urinary hesitancy and Denies urinary urgency Musculoskeletal: Musculoskeletal: Reports no additional musculoskeletal complaints, Reports back pain, Denies numbness and Denies tingling Neurologic: Denies dizziness, Denies loss of vision, Denies numbness and Denies tingling Psychiatric: Psychiatric: Reports no additional psychiatric complaints Endocrine: Endocrine: Reports no additional endocrine complaints Hematologic/Lymphatic: Hematologic/Lymphatic: Reports no additional hematologic/lymphatic complaints Allergic/Immunologic: Allergic/Immunologic: Reports no additional allergic/immunologic complaints PMFSH Past Medical History Attestation statement: The following information was validated with the patient. Source: old records reviewed and nursing notes reviewed Medical History Well woman exam Nipple discharge, bloody Pelvic pain in female Galactorrhea Obese Surgical History Previous section Status post total abdominal hysterectomy Hx laparoscopic cholecystectomy Hx of appendectomy Family History Family History Father No problems noted. 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 Physical Exam ED Vital Signs: Vital Signs - 24 hr 07/18/23 09:54 Temperature 97.5 F Pulse Rate 80 Respiratory Rate 19 Blood Pressure 142/80 H Pulse Oximetry 100 Oxygen Delivery Method Room Air BMI result Body Mass Index 36.6 Const General: cooperative, no acute distress, alert and awake Nutritional Appearance: well nourished Orientation/consciousness: patient oriented x3 Limitations: no limitations HENMT Head: Yes normal to inspection and Yes atraumatic Ears: hearing grossly normal bilaterally and external ears normal General nose exam: Normal external nose present, no nasal discharge noted and no epistaxis Face and sinus: Yes normal facial exam, No abrasion and No laceration Mouth: Normal oral and palatal mucosa present, no drooling and no muffled voice Eyes General: appearance normal, both eyes and all related structures Periorbital: periorbital findings normal Eyelids: Yes eyelids normal Conjunctivae: conjunctivae normal Pupils: Equal, round and reactive pupils present EOM: EOMs intact bilaterally Neck Neck: Yes normal visual inspection, Yes full ROM and Yes no lymphadenopathy Chest Chest palpation & inspection: normal inspection of the chest Resp Effort & Inspection: normal respiratory effort and able to speak in complete sentences GI Inspection: Yes normal to inspection General: Yes no CVA tenderness Back/Spine/Pelvis Back: no CVA tenderness Cervical Spine: normal cervical lordosis and cervical ROM normal Thoracic/Lumbar Spine: thoracic and lumbar spine normal to inspection and thoraco-lumbar ROM normal Neuro General: patient oriented x3 and moves all extremities Cranial nerves: Yes Equal, round and reactive pupils present Cognition (Neuro): normal cognition Motor exam (neuro): 5/5 motor strength present throughout Sensory Exam: Normal double simultaneous stimulation for sensation Coordination: [id number] test normal Extrem General: Yes normal to inspection, Yes full ROM and Yes capillary refill normal Psych Appearance: grossly normal Mental Status: mental status grossly normal Affect: normal affect Attitude: cooperative Thought process: Normal thought process present Thought content: Normal thought content present Insight: Good insight present (Psych) Medical Decision Making Medical Decision Making MDM Narrative: Patient is a 33 year old assigned female at with a history of ovarian cysts presenting to the emergency department today with right sided back pain. Patient's physical exam was unremarkable. Patient's urine showed a possible UTI however, it is a low possibility and given the rest of the patient's clinical presentation, will wait until culture report to treat. I explained my physical exam findings as well as all test results to the patient. I answered all questions asked by the patient. Patient received IM toradol and PO Flexeril which she stated helped her symptoms significantly. I stressed the importance of the patient taking her medication as prescribed. I stressed the importance of the patient following up with her primary care provider. I stressed the importance of the patient returning to the emergency department immediately if her symptoms were to worsen or if she were to develop any dizziness, shortness of breath, difficulty breathing, chest pain, blurry vision, loss of vision, nausea, vomiting, abdominal pain, fever, chills, back pain, or any other complaints. Patient verbalized agreement and understanding with this treatment plan and discharge. Differential Diagnosis Differential Diagnoses: The differential diagnosis associated with the presentation includes Back pain Muscle spasm Lab Data [facility] Lab Attestation statement: I reviewed the patient's lab results. My interpretation of these results are in the [facility] rationale portion of this note. Labs: Lab Results 07/18/23 Range/Units 10:37 Urine Color Yellow Urine Appearance Clear Urine pH 6.0 (5.0-9.0) Ur Specific [place] 1.025 (1.005-1.025) Urine Protein Negative (Neg-Trace) mg/dL Urine Glucose (UA) Negative (Negative) mg/dL Urine Ketones Negative (Negative) mg/dL Urine Blood Trace H (Negative) Urine Nitrite Negative (Negative) Ur Leukocyte Esterase Negative (Negative) Urine RBC 3-5 H (0-2) /HPF Urine WBC 0-5 (0-5) /HPF Ur Squamous Epith Cells 3-5 (0-2) /HPF Urine Bacteria Trace (None Seen) Hyaline Casts 0-2 (0-2) /LPF Urine Test NEGATIVE (NEGATIVE) Prescription Management I considered prescription management with: Pain Medication (patient prescribed pain medication.) Discharge Plan Discharge Clinical Impression: Back pain Patient Disposition: Home, Self-Care Instructions: Back Pain (ED) Additional Instructions: Follow up with your primary care provider. Return to the emergency department immediately if your symptoms worsen or if you develop any dizziness, shortness of breath, difficulty breathing, chest pain, blurry vision, loss of vision, nausea, vomiting, abdominal pain, fever, chills, back pain, or any other complaints. Claus un seguimiento con montemayor proveedor de atenci?n primaria. Regrese al departamento de emergencias inmediatamente si hugh s?ntomas empeoran o si presenta mareos, dificultad para respirar, dificultad para respirar, dolor en el pecho, visi?n borrosa, p?rdida de la visi?n, n?useas, v?mitos, dolor abdominal, fiebre, escalofr?os, dolor de espalda o cualquier otras quejas. Prescriptions: New cyclobenzaprine 5 mg tablet 5 mg PO TID PRN (Reason: pain) 7 Days Qty: 21 0RF naproxen 500 mg tablet 500 mg PO BID 7 Days Qty: 14 0RF Referrals: Andressa Taylor MD [Primary Care Provider] - Stand Alone Forms: Work/School Release Print Language: Syriac
[2023-07-18 10:46] LABS: Appearance Urine Clear; Color Urine Yellow; Glucose Urine UA Negative (Negative); Leukocyte Esterase Urine Negative (Negative); Nitrite Urine Negative (Negative); Specific Gravity - Urine 1.025 (1.005-1.025); UMIC TRIGGER UACC YES; Urine Blood Trace (Negative); Urine Ketones Negative (Negative); Urine Protein Negative (Neg-Trace)
[2023-07-18 10:47] LABS: UPreg QC Valid YES; Urine Pregnancy NEGATIVE (NEGATIVE)
[2023-07-18 10:49] LABS: Bacteria Urine Trace (None Seen); Hyaline Casts Urine 0-2 /LPF (0-2); WBC Urine 0-5 /HPF (0-5)
[2023-07-18] MEDS: Ketorolac Tromethamine 15 MG/ML VIAL IM (11:55)
[2023-07-18] MEDS: Cyclobenzaprine HCl 5 MG TABLET PO (11:55)
== END 2023-07-18 12:00 | disposition home or self-care (01) ==
PROVIDERS: Emergency Provider Emergency Medicine; PCP Internal Medicine
DX: M54.50 Low back pain, unspecified (principal); Z79.899 Other long term (current) drug therapy
CPT/HCPCS: 81001; 81025; 96372; 99284; J1885

== ENCOUNTER 2023-07-18 14:43 | Outpatient (REF) | payer OTHER, SELFPAY ==
--- NOTE | ~2023-07-18 | US_ITS ---
EXAMINATION: US PELVIS CLINICAL INFORMATION: Ovarian cyst COMPARISON: Pelvic ultrasound 02/21/2023. TECHNIQUE: Ultrasound of the pelvis is performed using both transabdominal and transvaginal transducers along with Doppler. Transvaginal imaging is performed due to inadequate visualization transabdominally. FINDINGS: Uterus: Hysterectomy. Adnexa: The right ovary measures 2.5 x 1.5 x 1.6 cm, volume 3.1 mL. The right ovary appears normal. There is normal color flow in the right ovary. The left ovary measures 2.7 x 2.2 x 2.6 cm, volume 8.1 mL. 2.0 cm thinly septated cyst. This is almost certainly benign. No follow-up imaging is recommended. There is normal color flow in the left ovary. No free fluid. US/US pelvic and transvaginal IMPRESSION: Resolution of previously seen mildly complex cyst in the right ovary.
== END 2023-07-18 14:44 | disposition home or self-care (01) ==
LOC: HO.US 14:43
PROVIDERS: PCP Internal Medicine; Visit Provider Obstetrics & Gynecology
DX: N83.299 Other ovarian cyst, unspecified side (principal)
CPT/HCPCS: 76830; 76856

== ENCOUNTER 2023-08-19 09:41 | Outpatient (AMB) | payer OTHER, SELFPAY ==
--- NOTE | 2023-08-19 10:34 | AM.OFFWIN_ITS ---
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 Reports used a nebulizer with some relief. Patient reports son at home with similar symptoms. He reports the cough is very uncomfortable. Denies fevers, chills, chest pain, shortness of breath, nausea, vomiting, sore throat, ear pain, headache, vision changes, dizziness and weakness. Physical exam benign. Likely viral illness versus bronchitis. Unlikely pneumonia, pulmonary embolism, no signs of acute respiratory distress. Unlikely strep throat. Plan at this time COVID test, will discharge with prednisone, albuterol inhaler, benzonatate pearls for cough. Educated patient on diagnosis and treatment plan, answered all question, patient verbalizes understanding. At this time patient will be discharged home, advised to return with new or worsening symptoms. Educated on worrisome signs and symptoms and when to return. At this time I feel comfortable discharge home. [facility] Medical History Well woman exam Nipple discharge, bloody Pelvic pain in female Galactorrhea Obese Surgical History Previous section Status post total abdominal hysterectomy Hx laparoscopic cholecystectomy Hx of appendectomy Family History Father No problems noted. 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 Review of Systems Const Details: Constitutional : No Weight loss, No Fever, No Chills, No Fatigue, No Malaise ENT/Mouth : No sore throat, No Rhinorrhea Eyes: No Eye Pain, No Swelling, No Redness Cardiovascular : No Chest Pain, No SOB, No Dyspnea on Exertion, No Orthopnea, No Edema, No Palpitations Respiratory : + Cough, No Sputum, No Wheezing Gastrointestinal : No Nausea, No Vomiting, No Diarrhea, No Constipation, No abdominal Pain, No Hematochezia, No Melena Genitourinary : No Dysuria, No Urinary Frequency, No Hematuria, Musculoskeletal : No joint pain, No Myalgias, No Joint Swelling Skin : No Skin Lesions, No rash Neuro : No Weakness, No Numbness, No Dizziness, No Headache Psych : No Anxiety/Panic, No Depression All other systems reviewed and are negative All systems reviewed & are unremarkable except as noted in HPI and below Physical Exam Vital Signs: Last Vital Signs Temp 98.0 F 08/19/23 10:40 Pulse 88 08/19/23 10:40 BP 122/78 08/19/23 10:40 Pulse Ox 100 08/19/23 10:40 BMI result Body Mass Index 35.0 vss Appearance: Alert.? Oriented X3.? No acute distress.? Head: Normocephalic, atraumatic, no step-offs or deformities Eyes: Pupils equal, round and reactive to light.? Neck: Normal inspection.? Neck supple.? CVS: Normal heart rate and rhythm.? Pulses normal.? Respiratory: No respiratory distress.? Breath sounds normal.? Abdomen: Soft and nontender.? Skin: Skin warm and dry.? Normal skin color.? Normal skin turgor.? Extremities: No lower extremity edema.? No calf ttp. 5/5 strength to bilateral upper and lower extremities Neuro: Oriented X 3.? No motor deficit.? No sensory deficit. CN 2-12 intact Assessment & Plan Assessment & Plan (1) Upper respiratory infection: Code(s): J06.9 - Acute upper respiratory infection, unspecified Plan Take your medications as prescribed. If you were prescribed antibiotics today, it is important that you take your medication to their entirety, do not skip any doses, do not finish them early. Follow-up with your primary care provider this week. Return to the emergency department with new or worsening symptoms. Such as fevers, chills, chest pain, shortness of breath, nausea, vomiting, dizziness, headache, vision changes, lethargy In case of emergency call 911 Orders: Orders StevenaxOLTUS Covid-19 Ag Today J06.9 - Acute upper respiratory infection, unspecified Medications: New prednisone 40 mg (2 x 20 mg) PO DAILY 5 days 10 tabs 0RF albuterol sulfate 90 mcg/actuation 2 puffs inhalation Q6H PRN 6.7 grams 0RF shortness of breath or wheezing albuterol sulfate 2.5 mg (0.5 mL) inhalation Q6H PRN 20 mL 0RF shortness of breath or wheezing Coding Level of Care Code Est Pt Level 3 (52406) Diagnoses Upper respiratory infection J06.9
[2023-08-19 10:40] VITALS: BP 122/78; PULSE 88; TEMP 36.7; O2SAT 100; BMI 35.0
== END 2023-08-19 11:20 | disposition home or self-care (01) ==
PROVIDERS: PCP Internal Medicine; Visit Provider Physician Assistant
DX: J06.9 Acute upper respiratory infection, unspecified (principal)
CPT/HCPCS: 99213

== ENCOUNTER 2023-08-19 11:01 | Outpatient (REF) | payer OTHER, SELFPAY ==
[2023-08-19 11:27] LABS: Binax Internal Control QC Valid; Binax Now Covid-19 Ag Negative (Negative); Binax Performed by: HO.BONILM
== END 2023-08-19 11:02 | disposition home or self-care (01) ==
LOC: HO.HMGCLDS 11:01
PROVIDERS: PCP Internal Medicine; Visit Provider Physician Assistant
DX: J06.9 Acute upper respiratory infection, unspecified (principal); Z11.52 Encounter for screening for COVID-19
CPT/HCPCS: 87811; C9803

== ENCOUNTER 2023-08-24 07:17 | Emergency (ER) | payer OTHER, SELFPAY ==
--- NOTE | ~2023-08-24 | US_ITS ---
EXAMINATION: US PELVIS CLINICAL INFORMATION: Left lower quadrant pain COMPARISON: Ultrasound TECHNIQUE: Ultrasound of the pelvis is performed using both transabdominal and transvaginal transducers along with Doppler. Transvaginal imaging is performed due to inadequate visualization transabdominally. FINDINGS: Uterus: The uterus is surgically absent, but the cervix remains with a nabothian cyst. Adnexa: Both ovaries are visualized. There is normal color flow to the adnexa. There is no ovarian torsion. There is no pelvic ascites or fluid collection. Right ovary measures 3.3 x 2.0 x 2.3 cm for a volume of 8.0 mL which includes a involuting corpus luteal cyst measuring 2.1 cm. Left ovary measures 2.3 x 1.3 x 1.9 cm for a volume of 3.0 cm. The previously seen ovarian cyst has resolved. US/US pelvic and transvaginal IMPRESSION: 1. Status post partial hysterectomy with remaining cervix. 2. The previously seen left ovarian cyst has resolved. 3. Involuting right ovarian corpus luteal cyst. No follow-up is needed. 4. In a patient of this age group, no follow-up is needed. If the patient's left lower quadrant pain continues, a CT scan could be performed.
--- NOTE | ~2023-08-24 | US_ITS ---
EXAMINATION: US PELVIS CLINICAL INFORMATION: Left lower quadrant pain COMPARISON: Ultrasound TECHNIQUE: Ultrasound of the pelvis is performed using both transabdominal and transvaginal transducers along with Doppler. Transvaginal imaging is performed due to inadequate visualization transabdominally. FINDINGS: Uterus: The uterus is surgically absent, but the cervix remains with a nabothian cyst. Adnexa: Both ovaries are visualized. There is normal color flow to the adnexa. There is no ovarian torsion. There is no pelvic ascites or fluid collection. Right ovary measures 3.3 x 2.0 x 2.3 cm for a volume of 8.0 mL which includes a involuting corpus luteal cyst measuring 2.1 cm. Left ovary measures 2.3 x 1.3 x 1.9 cm for a volume of 3.0 cm. The previously seen ovarian cyst has resolved. US/US pelvic ovarian doppler IMPRESSION: 1. Status post partial hysterectomy with remaining cervix. 2. The previously seen left ovarian cyst has resolved. 3. Involuting right ovarian corpus luteal cyst. No follow-up is needed. 4. In a patient of this age group, no follow-up is needed. If the patient's left lower quadrant pain continues, a CT scan could be performed.
--- NOTE | ~2023-08-24 | CT_ITS ---
EXAMINATION: CT ABDOMEN AND PELVIS WITHOUT CONTRAST CLINICAL INFORMATION: Left lower quadrant pain. COMPARISON: 07/06/2018 TECHNIQUE: Multidetector volumetric imaging was performed from the superior aspect of the liver through the pubic symphysis. Sagittal and coronal reformatted images were obtained on the technologist's workstation. This CT examination was performed using dose optimization techniques as appropriate, variously including the following: *Automated exposure control *Adjustment of mA and/or kV according to patient size (this includes techniques or standardized protocols for targeted exams where dose is matched to indication/reason for exam; i.e. extremities or head) *Use of iterative reconstruction technique DLP: 631 mGy-cm FINDINGS: LUNG BASES: Patchy airspace disease right lower lobe. LIVER, GALLBLADDER, AND BILIARY TREE: The noncontrast liver is normal in in size and contour. 3.7 cm right hepatic hypodensity. No biliary ductal dilatation. The gallbladder is surgically. PANCREAS: Unremarkable. SPLEEN: Unremarkable. ADRENAL GLANDS: Unremarkable. KIDNEYS AND URETERS: The kidneys are symmetric in size. Possible medullary nephrocalcinosis. Nonobstructing left renal calculus. No hydronephrosis. No perinephric stranding. BLADDER: Unremarkable. GASTROINTESTINAL TRACT: Subtle mesenteric stranding and edema in the left upper quadrant with few subcentimeter mesenteric. There is possible wall thickening of jejunal loops. No small bowel obstruction. Appendix is surgically absent. ABDOMINAL WALL: No significant hernia is appreciated. LYMPH NODES: No bulky lymphadenopathy. VASCULAR: Normal caliber abdominal aorta. PELVIC VISCERA: Possible supracervical hysterectomy. OSSEOUS STRUCTURES: No destructive bone lesions. CT/CT abdomen pelvis wo IV con IMPRESSION: Subtle mesenteric stranding and edema in the left upper quadrant with few subcentimeter mesenteric. There is possible wall thickening of jejunal loops. Enteritis should be considered. Patchy airspace disease right lower lobe.
[2023-08-24 07:52] VITALS: BP 120/65; PULSE 66; RESP 18; TEMP 36.9; O2SAT 98; BMI 35.9
[2023-08-24 08:12] LABS: MANUAL DIFF FLAG NO
[2023-08-24 08:15] LABS: Basophils Percent Auto 0.4 % (0-2); Eosinophils Absolute Auto 0.3 X10*3/uL (0.0-0.4); Eosinophils Percent Auto 3.3 % (0-4); Hematocrit 41.1 % (37.0-47.0); Hemoglobin 13.1 g/dl (12.0-16.0); Imm Gran Abs Auto 0.03 X10*3/uL (0.00-0.03); Imm Gran Pct Auto 0.4 % (0.0-0.4); Lymphocytes Absolute Auto 2.1 X10*3/uL (1.2-4.9); Lymphocytes Percent Auto 25.7 % (20-40); Mean Corpuscular HGB Conc 31.9 g/dl (31.0-35.0); Mean Corpuscular Volume 84.6 fL (80.0-98.0); Mean Platelet Volume 9.8 fL (9.4-12.3); Monocytes Absolute Auto 0.7 X10*3/uL (0.1-1.2); Monocytes Percent Auto 7.9 % (2-11); Neutrophils Absolute Auto 5.2 x10*3/uL (2.0-8.3); Neutrophils Percent Auto 62.3 % (45-73); Platelet Count 381 X10*3/uL (160-400); Red Blood Count 4.86 X10*6/uL (4.20-5.50); Red Cell Distribution Width 12.8 % (11.0-16.0); White Blood Count 8.3 X10*3/uL (4.8-10.8)
[2023-08-24 08:16] LABS: Appearance Urine Clear; Color Urine Yellow; Glucose Urine UA Negative (Negative); Leukocyte Esterase Urine Negative (Negative); Nitrite Urine Negative (Negative); Urine Blood Negative (Negative); Urine Ketones Negative (Negative); Urine Protein Negative (Neg-Trace)
[2023-08-24 08:31] LABS: Alanine Aminotransferase 11 U/L (0-31); Albumin Level 4.2 g/dL (3.5-5.0); Alkaline Phosphatase 53 U/L (39-117); Anion Gap 11 (12-20); Aspartate Amino Transferase 15 U/L (5-31); Bilirubin Total 0.2 mg/dL (0.0-1.0); Blood Urea Nitrogen 9 mg/dL (9-16); Calcium 9.5 mg/dL (8.4-10.2); Carbon Dioxide 25 mmol/L (22-29); Chloride 110 mmol/L (96-108); Creatinine Clr Calc Pharmacy 104.4; Estimated Glomerular Filt Rate > 60; Glucose Random 92 mg/dL (60-115); Potassium 4.9 mmol/L (3.3-5.1); Sodium 141 mmol/L (135-145); Total Protein 7.1 g/dL (6.5-8.0)
--- NOTE | 2023-08-24 09:30 | ED_ITS ---
HPI - Abdominal Pain General Chief Complaint: Abdominal Pain Stated Complaint: LLQ pain Time Seen by Provider: 08/24/23 09:18 Source: patient Mode of arrival: ambulatory Limitations: no limitations History of Present Illness HPI narrative: This is a 33-year-old female history of complex ovarian cyst presenting to the emergency department for evaluation of sudden onset left lower quadrant abdominal pain, started this morning at 05:00 awoke her from her sleep with associated nausea. Patient reports this feels like the time she had a ruptured ovarian cyst however this time she is not having vaginal discharge or pain, no vaginal bleeding. Patient reports yesterday she was fine. Denies fevers, chills, chest pain, shortness of breath, vomiting, diarrhea, changes in urination, headache, vision changes, dizziness. No recent sick contacts. History of hysterectomy Related Data Previous Rx's Medication Instructions Recorded albuterol sulfate 5 mg/mL(0.5 %) 2.5 mg (0.5 mL) inhalation Q6H PRN 08/19/23 solution for nebulization shortness of breath or wheezing #20 mL albuterol sulfate 90 mcg/actuation 2 puff inhalation Q6H PRN 08/19/23 aerosol inhaler shortness of breath or wheezing #6.7 grams benzonatate 100 mg capsule 100 mg PO BID PRN cough #14 caps 08/19/23 prednisone 20 mg tablet 40 mg (2 x 20 mg) PO DAILY 5 days 08/19/23 #10 tabs doxycycline hyclate 100 mg capsule 100 mg PO BID 10 days #20 caps 08/24/23 ondansetron 4 mg disintegrating 4 mg PO Q6H PRN nausea and 08/24/23 tablet vomiting #14 tabs Allergies Allergy/AdvReac Type Severity Reaction Status Date / Time No Known Allergies Allergy Verified 08/24/23 07:56 [No Known Allergies*] Review of Systems Review of Systems Constitutional : No Weight loss, No Fever, No Chills, No Fatigue, No Malaise ENT/Mouth : No sore throat, No Rhinorrhea Eyes: No Eye Pain, No Swelling, No Redness Cardiovascular : No Chest Pain, No SOB, No Dyspnea on Exertion, No Orthopnea, No Edema, No Palpitations Respiratory : No Cough, No Sputum, No Wheezing Gastrointestinal : No Nausea, No Vomiting, No Diarrhea, No Constipation, + abdominal Pain, No Hematochezia, No Melena Genitourinary : No Dysuria, No Urinary Frequency, No Hematuria, Musculoskeletal : No joint pain, No Myalgias, No Joint Swelling Skin : No Skin Lesions, No rash Neuro : No Weakness, No Numbness, No Dizziness, No Headache Psych : No Anxiety/Panic, No Depression All other systems reviewed and are negative Yes all other systems are reviewed and are negative [facility] Past Medical History Attestation statement: The following information was validated with the patient. Source: old records reviewed and nursing notes reviewed Medical History Well woman exam Nipple discharge, bloody Pelvic pain in female Galactorrhea Obese Surgical History Previous section Status post total abdominal hysterectomy Hx laparoscopic cholecystectomy Hx of appendectomy Family History Family History Father No problems noted. 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 Oriented X3.? No acute distress.? Head: Normocephalic, atraumatic, no step-offs or deformities Eyes: Pupils equal, round and reactive to light.? ENT: Pharynx normal.? Neck: Normal inspection.? Neck supple.? CVS: Normal heart rate and rhythm.? Pulses normal.? Respiratory: No respiratory distress.? Breath sounds normal.? Abdomen: Soft and + LLQ tenderness .? Skin: Skin warm and dry.? Normal skin color.? Normal skin turgor.? Extremities: No lower extremity edema.? No calf ttp. 5/5 strength to bilateral upper and lower extremities Neuro: Oriented X 3.? No motor deficit.? No sensory deficit. CN 2-12 intact Course Reevaluation(s) Reevaluation #1: CBC within normal limits . Chemistry unremarkable. Urine clean. Urine negative. Time: 13:30 Reevaluation #2: Patient ultrasound status post partial hysterectomy with remaining cervix, left ovarian cyst has resolved right ovarian corpus luteal cyst no follow-up needed. CT abdomen pelvic with subtle mesenteric stranding at and edema in the left upper quadrant with a few subcentimeter mesenteric, possible wall thickening of jejunal loops enteritis should be considered however patient without nausea or vomiting at this time abdominal pain improved with Toradol. Patient tolerating p.o. will discharge with Toradol, there is noted patchy airspace disease in the right lower lobe, patient was seen at Urgent Care and evaluated for viral illness that may have progressed to a upper respiratory infection that may need antibiotic for treatment patient is saturating well on room air will send her home with doxycycline. Educated patient on diagnosis and treatment plan, answered all question, patient verbalizes understanding. At this time patient will be discharged home, advised to return with new or worsening symptoms. Educated on worrisome signs and symptoms and when to return. At this time I feel comfortable discharge home. Time: 14:40 Medical Decision Making Medical Decision Making [facility] Narrative: [id number] 33-year-old female presents with acute onset left lower quadrant pain started this morning 05:00 with associated nausea. History of complex ovarian cyst Physical exam with left lower quadrant tenderness peer This is likely a ovarian cyst versus ruptured cyst. Unlikely ectopic , ovarian torsion, diverticulitis, acute abdomen, obstruction. Other differentials include musculoskeletal pain, viral illness, gastroenteritis. Will rule out UTI Plan labs, urine. Differential Diagnosis Differential Diagnoses: The differential diagnosis associated with the presentation includes This is likely a ovarian cyst versus ruptured cyst. Unlikely ectopic , ovarian torsion, diverticulitis, acute abdomen, obstruction. Other differentials include musculoskeletal pain, viral illness, gastroenteritis. Will rule out UTI Admission/Observation Consideration of admission/observation: Escalation of care including admission/observation considered Unlikely Lab Data MDM Lab Attestation statement: I reviewed the patient's lab results. 08/24/23 08:04 08/24/23 08:04 Labs: Lab Results 08/24/23 08/24/23 Range/Units 08:04 08:05 WBC 8.3 (4.8-10.8) X10*3/uL RBC 4.86 (4.20-5.50) X10*6/uL Hgb 13.1 (12.0-16.0) g/dl Hct 41.1 (37.0-47.0) % MCV 84.6 (80.0-98.0) fL MCH 27.0 (27.0-33.0) pg MCHC 31.9 (31.0-35.0) g/dl RDW 12.8 (11.0-16.0) % Plt Count 381 (160-400) X10*3/uL MPV 9.8 (9.4-12.3) fL Immature Gran % (Auto) 0.4 (0.0-0.4) % Neut % (Auto) 62.3 (45-73) % Lymph % (Auto) 25.7 (20-40) % [place] % (Auto) 7.9 (2-11) % Eos % (Auto) 3.3 (0-4) % Baso % (Auto) 0.4 (0-2) % Lymph # (Auto) 2.1 (1.2-4.9) X10*3/uL [place] # (Auto) 0.7 (0.1-1.2) X10*3/uL Eos # (Auto) 0.3 (0.0-0.4) X10*3/uL Baso # (Auto) 0.0 (0.0-0.2) X10*3/uL Abs Immat Gran (auto) 0.03 (0.00-0.03) X10*3/uL Absolute Neuts (auto) 5.2 (2.0-8.3) x10*3/uL Absolute Nucleated RBC 0.000 (0.0-0.012) X10*3/uL Nucleated RBC % (auto) 0.0 (0.0-0.2) /100WBC Sodium 141 (135-145) mmol/L Potassium 4.9 (3.3-5.1) mmol/L Chloride 110 H (96-108) mmol/L Carbon Dioxide 25 (22-29) mmol/L Anion Gap 11 L (12-20) BUN 9 (9-16) mg/dL Creatinine 0.75 (0.5-1.4) mg/dL Estim Creat Clear Calc 104.4 Estimated GFR > 60 Random Glucose 92 (60-115) mg/dL Calcium 9.5 (8.4-10.2) mg/dL Total Bilirubin 0.2 (0.0-1.0) mg/dL AST 15 (5-31) U/L ALT 11 (0-31) U/L Alkaline Phosphatase 53 (39-117) U/L Total Protein 7.1 (6.5-8.0) g/dL Albumin 4.2 (3.5-5.0) g/dL Urine Color Yellow Urine Appearance Clear Urine pH 8.0 (5.0-9.0) Ur Specific [place] 1.020 (1.005-1.025) Urine Protein Negative (Neg-Trace) mg/dL Urine Glucose (UA) Negative (Negative) mg/dL Urine Ketones Negative (Negative) mg/dL Urine Blood Negative (Negative) Urine Nitrite Negative (Negative) Ur Leukocyte Esterase Negative (Negative) Urine Test NEGATIVE (NEGATIVE) Independent Interpretation I performed an independent interpretation of an: Ultrasound (S/US pelvic and transvaginal IMPRESSION: 1. Status post partial hysterectomy with remaining cervix. 2. The previously seen left ovarian cyst has resolved. 3. Involuting right ovarian corpus luteal cyst. No follow-up is needed. 4. In a patient of this age group, no follow-up is needed. If the pa) and CT Scan (CT/CT abdomen pelvis wo IV con IMPRESSION: Subtle mesenteric stranding and edema in the left upper quadrant with few subcentimeter mesenteric. There is possible wall thickening of jejunal loops. Enteritis should be considered. Patchy airspace disease right lower lobe. ) Radiology Impression Discussion of test interpretation with radiology: I have reviewed the radiologist's reading. External Record Review External record reviewed: Inpatient record, Office record, Outpatient record, Prior outpatient labs, Prior outpatient radiology, Primary care record and Outside ED record Prescription Management I considered prescription management with: Pain Medication and Antibiotic Chronic Conditions Patient?s care impacted by: Other (Obesity, complex ovarian cyst, galactorrhea) Medications Administered Discontinued Medications Generic Name Dose Route Start Last Admin Trade Name Freq PRN Reason Stop Dose Admin Ketorolac Tromethamine 30 mg 08/24/23 10:59 08/24/23 11:36 Ketorolac Tromethamine 15 Mg/Ml Vial IVPUSH 08/24/23 11:00 30 mg ONCE ONE Administration Discharge Plan Discharge Clinical Impression: Abdominal pain, LLQ, URI (upper respiratory infection) Patient Disposition: Home, Self-Care Instructions: Upper Respiratory Infection (DC), Abdominal Pain (ED) Additional Instructions: Take your medications as prescribed. If you were prescribed antibiotics today, it is important that you take your medication to their entirety, do not skip any doses, do not finish them early. Follow-up with your primary care provider this week. Follow up with gasterenterology and [facility] Return to the emergency department with new or worsening symptoms. Such as fevers, chills, chest pain, shortness of breath, nausea, vomiting, dizziness, headache, vision changes, lethargy In case of emergency call 911 US/US pelvic ovarian doppler IMPRESSION: 1. Status post partial hysterectomy with remaining cervix. 2. The previously seen left ovarian cyst has resolved. 3. Involuting right ovarian corpus luteal cyst. No follow-up is needed. 4. In a patient of this age group, no follow-up is needed. If the patient's left lower quadrant pain continues, a CT scan could be performed. CT/CT abdomen pelvis wo IV con IMPRESSION: Subtle mesenteric stranding and edema in the left upper quadrant with few subcentimeter mesenteric. There is possible wall thickening of jejunal loops. Enteritis should be considered. Patchy airspace disease right lower lobe. Prescriptions: New doxycycline hyclate 100 mg capsule 100 mg PO BID 10 Days Qty: 20 0RF ondansetron 4 mg tablet,disintegrating 4 mg PO Q6H PRN (Reason: nausea and vomiting) Qty: 14 0RF No Action prednisone 20 mg tablet 40 mg PO DAILY 5 Days Qty: 10 0RF albuterol sulfate 90 mcg/actuation HFA aerosol inhaler 2 puff inhalation Q6H PRN (Reason: shortness of breath or wheezing) Qty: 6.7 0RF albuterol sulfate 5 mg/mL solution for nebulization 2.5 mg inhalation Q6H PRN (Reason: shortness of breath or wheezing) Qty: 20 0RF benzonatate 100 mg capsule 100 mg PO BID PRN (Reason: cough) Qty: 14 0RF Referrals: [facility] – [place] [facility] [Provider Group] - 2 days Andressa Taylor MD [Primary Care Provider] - 2 days Emeka Jauregui MD [Physician] - 2 days Stand Alone Forms: Work/School Release
[2023-08-24 09:43] LABS: UPreg QC Valid YES
[2023-08-24 09:45] LABS: Urine Pregnancy NEGATIVE (NEGATIVE)
[2023-08-24 10:40] VITALS: BP 117/71; PULSE 59; RESP 14; TEMP 36.8; O2SAT 99
[2023-08-24] MEDS: Ketorolac Tromethamine 15 MG/ML VIAL 30 MG IVPUSH (11:36)
[2023-08-24 12:50] VITALS: BP 125/73; PULSE 58; RESP 15; TEMP 36.2; O2SAT 100
[2023-08-24 15:05] VITALS: BP 117/75; PULSE 60; RESP 14; TEMP 36.9; O2SAT 100
== END 2023-08-24 15:13 | disposition home or self-care (01) ==
PROVIDERS: Physician Assistant; Emergency Provider Student in an Organized Health Care Education/Training Program; PCP Internal Medicine
DX: R10.2 Pelvic and perineal pain (principal); J06.9 Acute upper respiratory infection, unspecified; R10.32 Left lower quadrant pain; R11.2 Nausea with vomiting, unspecified; F17.210 Nicotine dependence, cigarettes, uncomplicated; Z71.6 Tobacco abuse counseling; Z79.899 Other long term (current) drug therapy
CPT/HCPCS: 36415; 74176; 76830; 76856; 80053; 81003; 81025; 85025; 93975; 96374; 99284; J1885

== ENCOUNTER 2023-09-19 09:09 | Outpatient (AMB) | payer OTHER, SELFPAY ==
--- NOTE | 2023-09-19 09:24 | A.OFFVIS_ITS ---
Intake Vital Signs 09/19/23 09:26 Height 5 ft 1 in Weight 189 lb 9.561 oz BMI 35.8 BP 120/74 Intake Visit Reasons: ultrasound follow up/DO NOT RS Plant Buyer Required: Yes Plant Buyer Language: Fighter Pilot Name: Debra BILLS Information Interpreted: non-clinical & clinical Accompanied by: Daughter Allergies No Known Allergies [No Known Allergies*] Allergy (Verified 09/19/23 09:34) HPI HPI Comments History of Present Illness Details Presenting for follow-up regarding previously identified complex ovarian cyst on ultrasound done in 03/08. Ultrasound done in 08/08 showed the following: Uterus: Hysterectomy. Adnexa: The right ovary measures 2.5 x 1.5 x 1.6 cm, volume 3.1 mL. The right ovary appears normal. There is normal color flow in the right ovary. The left ovary measures 2.7 x 2.2 x 2.6 cm, volume 8.1 mL. 2.0 cm thinly septated cyst. This is almost certainly benign. No follow-up imaging is recommended. There is normal color flow in the left ovary. No free fluid. [facility] Medical History Well woman exam Nipple discharge, bloody Pelvic pain in female Galactorrhea Obese Surgical History Previous section Status post total abdominal hysterectomy Hx laparoscopic cholecystectomy Hx of appendectomy Family History Father No problems noted. 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 The patient was instructed to call if symptoms recur. All questions were answered the patient verbalized understanding. Quality Reporting (2019) Adult ([facility] ) Smoking risk assessment performed?: Yes Patient Tobacco Use Status: Current someday Tobacco user Coding Level of Care Code Est Pt Level 3 (97813) Diagnoses Complex ovarian cyst N83.299
[2023-09-19 09:26] VITALS: BP 120/74; BMI 35.8
== END 2023-09-19 10:20 | disposition home or self-care (01) ==
PROVIDERS: PCP Internal Medicine; Visit Provider Obstetrics & Gynecology
DX: N83.299 Other ovarian cyst, unspecified side (principal)
CPT/HCPCS: 99213

== ENCOUNTER → 2023-09-19 09:09 | Outpatient (BNVA) | payer OTHER, SELFPAY | PROVIDERS: PCP Internal Medicine; Visit Provider Obstetrics & Gynecology | DX: N83.299 Other ovarian cyst, unspecified side (principal) | CPT/HCPCS: 99212 ==

== ENCOUNTER 2023-11-22 12:54 | Outpatient (AMB) | payer OTHER, SELFPAY ==
--- NOTE | 2023-11-22 13:36 | A.OFFPC_ITS ---
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 Accompanied by: Self / Same As Patient Allergies No Known Allergies [No Known Allergies*] Allergy (Verified 11/22/23 13:58) Medication List - Last Reconciled 11/22/23 by Andressa Ca MD albuterol sulfate 90 mcg/actuation 2 puffs inhalation Q6H PRN albuterol sulfate 2.5 mg (0.5 mL) inhalation Q6H PRN Tobacco use date assessed: 11/22/23 Dental Screening Dental Screen Date: 11/22/23 Did you have a dental visit in the last 12 months?: No Did you have a dental problem in the last 6 months where you did not have access to dental care?: No Was dental information given to patient?: Patient has dentist HPI HPI Comments History of Present Illness Details This is a 33-year-old female that comes today complaining of some abd ominal pain that happens occasionally. She went to ER in August 2023 due to this matter and had a CT scan of abdomen and pelvis showing inflammation on colon. Has daily diarrhea after having cholecystectomy. [facility] Medical History (Updated 11/22/23 @ 14:12 by Andressa Ca MD) Well woman exam Nipple discharge, bloody Pelvic pain in female Galactorrhea Obese Surgical History Previous section Status post total abdominal hysterectomy Hx laparoscopic cholecystectomy Hx of appendectomy Family History (Updated 11/22/23 @ 13:45 by NEGAR Lynch) Father No problems noted. 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 1. Little interest or pleasure in doing things: not at all 2. Feeling down, depressed, or hopeless: not at all 3. Trouble falling or staying asleep, or sleeping too much: not at all 4. Feeling tired or having little energy: not at all 5. Poor appetite or overeating: not at all 6. Feeling bad about yourself - or that you are a failure or have let yourself or your family down: not at all 7. Trouble concentrating on things, such as reading the newspaper or watching television: not at all 8. Moving or speaking so slowly that other people could have noticed. Or the opposite - being so fidgety or restless that you have been moving around a lot more than usual: not at all 9. Thoughts that you would be better off or of hurting yourself in some way: not at all Total score: 0 Depression Screening Interpretation: Negative Depression Screening Done: Yes 78942 - PHQ-9 Billing: Yes Source: Developed by Drs. Yoav Crump, Peyton Mantilla, Leonel Cuello and colleagues, with an educational tomas from [employer]. Thrive Questionnaire Date Thrive assessed: 11/22/23 I am a: Patient What is your living situation today?: I have a steady place to live Within the past 12 months, did the food you bought not last and you didn't have the money to get more?: Never true Within the past 12 months, did you worry whether your food would run out before you got money to buy more?: Never true Do you have trouble paying for medicines?: No Do you have trouble getting transportation to medical appointments?: No Do you have trouble paying your heating and electricity bill?: No Do you have trouble taking care of your child, family member or friend?: No Do you have trouble with day-to-day activities such as bathing, preparing meals, shopping, managing finances, etc.?: No Are you currently unemployed and looking for a job?: No Are you interested in more education?: No Please select the resources that you would like help with: None Currently or been in a relationship where the following occur: no concerns reported THRIVE Score: 0 AUDIT C Alcohol Use Questionnaire (AUDIT-C) 1. How often do you have a drink containing alcohol?: Monthly or less 2. How many drinks containing alcohol do you have on a typical day when you are drinking?: 1 or 2 3. How often do you have six or more drinks on one occasion?: Never Total Score: 1 DAISY-7 AMB Questionnaire DAISY-7 Date DAISY - 7 assessed: 11/22/23 Feeling nervous, anxious, or on edge: 3 = Nearly every day Not being able to stop or control worryin = Not at all Worrying too much about different things: 1 = Several days Trouble relaxin = Not at all Being so restless that it is hard to sit still: 0 = Not at all Becoming easily annoyed or irritable: 1 = Several days Feeling afraid as if something awful might happen: 1 = Several days Total DAISY-7 score (0-4 normal; 5-9 mild; 10-14 moderate; 15-21 severe): 6 Source: Developed by Drs. Yoav Crump, Peyton Mantilla, Leonel Cuello and colleagues, with an educational tomas from [employer]. DAISY-7 Assessment Billing DAISY-7 Assessment Tool: DAISY-7 Assessment 28834 Review of Systems Const All systems reviewed & are unremarkable except as noted in HPI and below Eyes Reports no additional complaints, Denies change in vision and Denies other visual disturbances Card Denies chest pain at rest, Denies chest pain with activity, Denies edema, Denies irregular heart rhythm, Denies claudication, Denies dyspnea, Denies dyspnea on exertion, Denies orthopnea, Denies paroxysmal nocturnal dyspnea and Denies slow heart rate Resp Denies cough, Denies dyspnea and Denies dyspnea on exertion GI Denies abdominal pain, Denies change in bowel habits, Denies excessive flatus, Denies nausea and Denies vomiting Denies urinary incontinence, Denies urinary hesitancy and Denies urinary urgency Musc Denies abnormal gait, Denies atrophy, Denies deformity and Denies limited range of motion Skin/Breast Denies bleeding lesions, Denies changing lesions and Denies rash Neuro Denies abnormal gait, Denies behavioral changes and Denies lack of coordination Psych Denies behavioral changes Physical exam (Primary Care) Vital Signs: Last Vital Signs BP 110/80 11/22/23 13:37 BMI result Body Mass Index 36.5 Tobacco/Smoking Status: Tobacco use Status Tobacco use date assessed 11/22/23 11/22/23 13:49 Patient Tobacco Use Status Current everyday Tobacco 11/22/23 13:49 Tobacco use type Cigarette 11/22/23 13:46 e-Cigarette/Vaping Use Never Used 11/22/23 13:49 PHQ-9: PHQ-9 Score PHQ-9: Total score 0 11/22/23 14:00 Depression Screening Interpretation: Negative Thrive Assessment: Date of Thrive Assessment Date Thrive assessed 11/22/23 11/22/23 13:49 Currently or been in a relationship where the following occur: no concerns reported [facility] Head: Yes normal to inspection, Yes normocephalic and Yes atraumatic Ears: external ears normal General nose exam: Normal external nose present and No nasal discharge present Face and sinus: Yes sinuses nontender Mouth: lip normal Eyes General: appearance normal, both eyes and all related structures Eyelids: Yes eyelids normal Conjunctivae: conjunctivae normal Neck Neck: Yes normal visual inspection and Yes supple Resp Effort & Inspection: normal respiratory effort Auscultation: clear to auscultation bilaterally Cardio Jugular venous distension: no JVD Rate: regular rate Rhythm: regular rhythm Heart sounds: S1 normal heart sound present and S2 normal heart sound present GI Inspection: Yes normal to inspection Palpation (GI): Soft to palpation and nontender Auscultation: normal bowel sounds Extrem General: Yes full ROM Assessment and Plan Assessment & Plan (1) Abdominal pain: Code(s): R10.9 - Unspecified abdominal pain Plan: Referred to Gastroenterology. 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 Orders: Referrals Gastroenterology Referral R10.9 - Unspecified abdominal pain Medications: New cholestyramine (with sugar) 4 gram administer w/meal; avoid other meds within 1hr before or 4-6hr after dose 4 grams PO BID 30 days PRN 60 ea 3RF diarrhea K90.89 - Other intestinal malabsorption Coding Level of Care Code Est Pt Level 3 (51948) Diagnoses Abdominal pain R10.9 Bile salt-induced diarrhea K90.89 Additional Codes DAISY-7 Assessment Billing - DAISY-7 Assessment Tool: DAISY-7 Assessment 47264 ([id number]) Time Spent (min) 19
[2023-11-22 13:37] VITALS: BP 110/80; BMI 36.5
== END 2023-11-22 14:06 | disposition home or self-care (01) ==
PROVIDERS: PCP Internal Medicine; Visit Provider Internal Medicine
DX: R10.9 Unspecified abdominal pain (principal); K90.89 Other intestinal malabsorption
CPT/HCPCS: 99213

== ENCOUNTER 2024-01-17 08:57 | Emergency (ER) | payer OTHER, SELFPAY ==
--- NOTE | ~2024-01-17 | XR_ITS ---
EXAMINATION: XR LUMBOSACRAL SPINE CLINICAL INFORMATION: Low back pain COMPARISON: None available. TECHNIQUE: Three views of the lumbosacral spine. FINDINGS: There is normal lumbar lordosis. The vertebral heights, alignment and disc heights are normal. There is no visible acute fracture, dislocation or subluxation seen. No aggressive lytic or sclerotic process seen. SI joints are symmetrical and normal. XR/XR lumbar spine 2-3V IMPRESSION: Unremarkable lumbar spine exam.
[2024-01-17 09:10] VITALS: BP 109/80; PULSE 78; RESP 16; TEMP 37.2; O2SAT 96; BMI 37.8
--- NOTE | 2024-01-17 10:56 | ED_ITS ---
HPI - Back Pain/Injury General Chief Complaint: Back Pain/Injury Stated Complaint: Low Back Pain ? Injury Time Seen by Provider: 01/17/24 10:24 Source: patient, RN notes reviewed and seismic interpreter Mode of arrival: ambulatory Limitations: language barrier History of Present Illness HPI Narrative: This is a 33-year-old Tamaz[place]-speaking female, with a history of asthma, presenting to the emergency department complaints of back pain since yesterday. Patient states that while she has at work she was bending over and moving objects when suddenly she felt pain in her back. She states that since this injury, she has had increased pain. She has been taking ibuprofen, last dose was last night which provided her with some relief. She states that the pain is constant her low back, denies any pain radiation, numbness or tingling. No saddle anesthesia. No urinary or bowel retention or incontinence. She states that she has a history of similar back pain in the past which resolved on its own. She denies any fevers, chills, chest pain, shortness of breath, abdominal pain, nausea, vomiting or diarrhea. No urinary urgency, frequency, hematuria or dysuria. No other complaints or concerns at this time. MD elicited complaint: back pain and back injury Pertinent past history: prior back pain Onset (ago): day(s) Timing: constant Severity: moderate Similar Symptoms Previously: Yes Quality: aching Location: lumbar spine Radiation: none Exacerbating factors: movement Relieving factors: none Context: turning/twisting and bending Associated symptoms: denies other symptoms Work related injury: Yes Related Data Previous Rx's Medication Instructions Recorded albuterol sulfate 5 mg/mL(0.5 %) 2.5 mg (0.5 mL) inhalation Q6H PRN 08/19/23 solution for nebulization shortness of breath or wheezing #20 mL albuterol sulfate 90 mcg/actuation 2 puff inhalation Q6H PRN 08/19/23 aerosol inhaler shortness of breath or wheezing #6.7 grams cholestyramine (with sugar) 4 gram 4 g PO BID PRN diarrhea 30 days 11/22/23 powder for susp in a packet #60 ea acetaminophen 650 mg 650 mg PO Q12H PRN pain #30 tabs 01/17/24 tablet,extended release (Tylenol Arthritis Pain) cyclobenzaprine 10 mg tablet 10 mg PO TID PRN muscle spasm #14 01/17/24 tabs ibuprofen 600 mg tablet 600 mg PO Q6H PRN pain #30 tabs 01/17/24 Allergies Allergy/AdvReac Type Severity Reaction Status Date / Time No Known Allergies Allergy Verified 11/22/23 13:58 [No Known Allergies*] Review of Systems Review of Systems: Yes all other systems are reviewed and are negative Constitutional: Constitutional: Reports as per HPI [facility] Past Medical History Medical History Well woman exam Nipple discharge, bloody Pelvic pain in female Galactorrhea Obese Surgical History Previous section Status post total abdominal hysterectomy Hx laparoscopic cholecystectomy Hx of appendectomy Family History Family History (Updated 11/22/23 @ 13:45 by NEGAR Lynch) Father No problems noted. 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 Current occupational exposures/hazards: No Cognitive needs: No Hearing needs: No Vision needs: No Physical Exam Vital Signs: Vital Signs: Last Vital Signs Temp 98.9 F 01/17/24 09:10 Pulse 78 01/17/24 09:10 Resp 16 01/17/24 09:10 BP 109/80 01/17/24 09:10 Pulse Ox 96 01/17/24 09:10 O2 Del Method Room Air 01/17/24 09:10 BMI result Body Mass Index 37.8 Const: General: cooperative, comfortable and no acute distress Orientation/consciousness: patient oriented x3 Limitations: no limitations HEENT: Head: Yes normal to inspection, Yes normocephalic and Yes atraumatic Ears: hearing grossly normal bilaterally General nose exam: Normal external nose present Face and sinus: Yes normal facial exam Mouth: Normal oral and palatal mucosa present, oropharynx normal and moist mucous membranes Throat: Yes posterior oropharynx normal Eyes: General: appearance normal, both eyes and all related structures Eyelids: Yes eyelids normal Conjunctivae: conjunctivae normal Sclerae: sclerae normal Pupils: Equal, round and reactive pupils present EOM: EOMs intact bilaterally Neck: Neck: Yes normal visual inspection, Yes full ROM and Yes no lymphadenopathy Lymphatic: no lymphadenopathy noted Chest: Chest palpation & inspection: normal inspection of the chest Resp: Effort & Inspection: normal respiratory effort and able to speak in complete sentences Auscultation: clear to auscultation bilaterally, no crackles, no rales, no rhonchi and no wheezes Cardio: Rate: regular rate Rhythm: regular rhythm Heart sounds: S1 nor mal heart sound present and S2 normal heart sound present GI: Inspection: Yes normal to inspection Back/Spine/Pelvis: Other: Mild tenderness palpation along the lumbar midline spine, as well as bilateral paraspinous muscles with spasm. Strength 5/5 in lower extremities. Skin: General skin exam: no rashes or lesions noted Trauma: no lacerations or abrasions Wounds: no wounds Neuro: General: patient oriented x3 and moves all extremities Cranial nerves: Yes Equal, round and reactive pupils present Extrem: General: Yes normal to inspection Right upper extremity: normal to inspection Left upper extremity: normal to inspection Right lower extremity: normal to inspection Left lower extremity: normal to inspection Course Reevaluation(s) Reevaluation #1: Lumbar spine x-ray returns, no bony abnormality seen. Symptoms consistent with muscle spasms, will treat with ibuprofen, Tylenol, and muscle relaxants. Patient given return precautions. She understands and agrees with plan. Patient stable for discharge. Time: 11:52 Medications Administered Discontinued Medications Generic Name Dose Route Start Last Admin Trade Name Freq PRN Reason Stop Dose Admin Ketorolac Tromethamine 30 mg 01/17/24 10:45 01/17/24 10:59 Ketorolac Tromethamine 30 Mg/Ml Vial IM 01/17/24 10:46 30 mg ONCE ONE Administration Medical Decision Making Medical Decision Making MDM Narrative: This is a 33-year-old female, with a history of asthma, presenting to the emergency department complaints of back pain since yesterday. On arrival, vital signs within normal limits. She is tenderness palpation along the lumbar spine and lumbar paraspinous muscles. This patient presents with back pain most consistent with lumbar back spasm. Differential diagnoses includes lumbago versus musculoskeletal spasm / strain versus sciatica.No back pain red flags on history or physical. Presentation not consistent with malignancy (lack of history of malignancy, lack of B symptoms), fracture (no trauma, no bony tenderness to palpation), cauda equina syndrome (no bowel or urinary incontinence/retention, no saddle anesthesia, no distal weakness), pyelonephritis (afebrile, no CVAT, no urinary symptoms). Plan: Lumbar spine x-ray, Toradol Differential Diagnosis Differential Diagnoses: The differential diagnosis associated with the presentation includes See above Admission/Observation Consideration of admission/observation: Escalation of care including admission/observation considered Independent Interpretation Interpretation: I reviewed the x-ray and agree with the radiology report Radiology Impression Discussion of test interpretation with radiology: I have reviewed the radiologist's reading. Radiologist Impression: EXAMINATION: XR LUMBOSACRAL SPINE CLINICAL INFORMATION: Low back pain COMPARISON: None available. TECHNIQUE: Three views of the lumbosacral spine. FINDINGS: There is normal lumbar lordosis. The vertebral heights, alignment and disc heights are normal. There is no visible acute fracture, dislocation or subluxation seen. No aggressive lytic or sclerotic process seen. SI joints are symmetrical and normal. XR/XR lumbar spine 2-3V IMPRESSION: Unremarkable lumbar spine exam. Discharge Plan Discharge Clinical Impression: Back pain Patient Disposition: Home, Self-Care Instructions: Acute Low Back Pain (ED) Additional Instructions: You were seen in the emergency department due to back pain. Your x-ray was normal. Your symptoms are likely due to muscle spasms. Please alternate between ibuprofen and Tylenol as needed for pain. Lidocaine patches can also help with your symptoms. I am prescribing you a muscle relaxant, Flexeril, this is a medication that may cause drowsiness, do not drink alcohol or drive while taking this medication. Gentle stretching, massage, can also help with your symptoms. If any new or worsening symptoms occur including but not limited to chest pain, shortness of breath, abdominal pain, please return for re-evaluation. Prescriptions: New ibuprofen 600 mg tablet 600 mg PO Q6H PRN (Reason: pain) Qty: 30 0RF acetaminophen [Tylenol Arthritis Pain] 650 mg tablet extended release 650 mg PO Q12H PRN (Reason: pain) Qty: 30 0RF cyclobenzaprine 10 mg tablet 10 mg PO TID PRN (Reason: muscle spasm) Qty: 14 0RF No Action albuterol sulfate 90 mcg/actuation HFA aerosol inhaler 2 puff inhalation Q6H PRN (Reason: shortness of breath or wheezing) Qty: 6.7 0RF albuterol sulfate 5 mg/mL solution for nebulization 2.5 mg inhalation Q6H PRN (Reason: shortness of breath or wheezing) Qty: 20 0RF cholestyramine (with sugar) 4 gram powder in packet 4 g PO BID PRN (Reason: diarrhea) 30 Days Qty: 60 3RF Rx Instructions: administer w/meal; avoid other meds within 1hr before or 4-6hr after dose
[2024-01-17] MEDS: Ketorolac Tromethamine 30 MG/ML VIAL IM (10:59)
[2024-01-17 12:08] VITALS: BP 116/79; PULSE 55; RESP 18; TEMP 36.7; O2SAT 99
== END 2024-01-17 12:09 | disposition home or self-care (01) ==
PROVIDERS: Emergency Provider Emergency Medicine; PCP Internal Medicine
DX: M54.50 Low back pain, unspecified (principal); J45.909 Unspecified asthma, uncomplicated
CPT/HCPCS: 72100; 96372; 99283; 99284; J1885

== ENCOUNTER 2024-02-29 09:10 | Emergency (ER) | payer OTHER, SELFPAY ==
--- NOTE | ~2024-02-29 | XR_ITS ---
EXAMINATION: XR SHOULDER, LEFT CLINICAL INFORMATION: Left shoulder injury and pain COMPARISON: None available. TECHNIQUE: AP external rotation, Grashey, scapular Y views of the left shoulder. FINDINGS: BONES: Bony structures are intact. There is no focal bone destruction or periosteal reaction seen. JOINTS: Alignment of joints is normal. SOFT TISSUE: Soft tissue is normal. No radiopaque foreign body or abnormal air collection is seen. XR/XR shoulder LT min 2V IMPRESSION: 1. Normal x-rays of left shoulder. No fracture or dislocation or signs of osteomyelitis are found.
[2024-02-29 10:05] VITALS: BP 125/81; PULSE 76; RESP 16; TEMP 37; O2SAT 98; BMI 20.4
[2024-02-29 12:00] VITALS: BP 116/66; PULSE 65; TEMP 36.9; O2SAT 100
--- NOTE | 2024-02-29 12:17 | ED.EXTPRO ---
HPI - Extremity Problem General Chief complaint: Extremity Injury, Upper Stated complaint: Neck & shoulder pain L side Time Seen by Provider: 02/29/24 12:15 Source: patient and lang interpreter (all interactions with this patient were facilitated by an [facility] [place] Mode of arrival: ambulatory Limitations: language barrier (all interactions with this patient were facilitated by an [facility] [place] the deaf.) History of Present Illness HPI Narrative: Patient is a 33 year old assigned female at with a history of ovarian cyst presenting to the emergency department today with left shoulder pain. Patient states that she woke up with left shoulder pain that radiates into her left neck. Patient states that she has pain with movement of her left neck. Patient states that she may have slept on it funny. Patient states that she does move heavy objects at work. Patient denies any dizziness, lightheadedness, abdominal pain, nausea, vomiting, fever, chills, blurry vision, double vision, loss of vision, chest pain, difficulty breathing, shortness of breath, back pain, night sweats, pain with urination, increased urinary frequency, increased urinary urgency, blood in her urine or stool, syncope or a near syncopal episode, bowel incontinence, bladder incontinence, bowel retention, bladder retention, or any other complaints at this time. MD Complaint: extremity pain Onset (ago): day(s) (1) Pain Consistency: constant Location: left and upper extremity Severity scale (1-10): 3 Quality: aching and dull Radiation: other (up left neck) Relieving factors: immobilization Exacerbating factors: range of motion Associated symptoms: denies other symptoms Related Data Previous Rx's ?Medication ?Instructions ?Recorded albuterol sulfate 5 mg/mL(0.5 %) 2.5 mg (0.5 mL) inhalation Q6H PRN 08/19/23 solution for nebulization shortness of breath or wheezing #20 mL albuterol sulfate 90 mcg/actuation 2 puff inhalation Q6H PRN 08/19/23 aerosol inhaler shortness of breath or wheezing #6.7 grams cholestyramine (with sugar) 4 gram 4 g PO BID PRN diarrhea 30 days 11/22/23 powder for susp in a packet #60 ea acetaminophen 650 mg 650 mg PO Q12H PRN pain #30 tabs 01/17/24 tablet,extended release (Tylenol Arthritis Pain) cyclobenzaprine 10 mg tablet 10 mg PO TID PRN muscle spasm #14 01/17/24 tabs ibuprofen 600 mg tablet 600 mg PO Q6H PRN pain #30 tabs 01/17/24 lidocaine 5 % topical patch 1 patch topical DAILY #30 ea 01/17/24 (Lidoderm) cyclobenzaprine 5 mg tablet 5 mg PO TID PRN muscle spasm 7 02/29/24 days #21 tabs Allergies Allergy/AdvReac Type Severity Reaction Status Date / Time No Known Allergies Allergy Verified 02/29/24 10:07 [No Known Allergies*] Review of Systems Constitutional: Constitutional: Reports no additional constitutional complaints, Denies chills, Denies fever(s) and Denies night sweats Eyes: Eyes: Reports no additional eye complaints, Denies blurry vision, Denies change in vision, Denies diplopia, Denies eye discharge, Denies loss of vision and Denies eye pain ENT: Denies dizziness Comments: left sided neck pain Cardiovascular: Cardiovascular: Reports no additional cardiovascular complaints, Denies chest pain, Denies lightheadedness, Denies Loss of Consciousness and Denies dyspnea Respiratory: Respiratory: Reports no additional respiratory complaints and Denies dyspnea Gastrointestinal: Gastrointestinal: Reports no additional gastrointestinal complaints, Denies abdominal pain, Denies melena, Denies hematochezia, Denies change in bowel habits and Denies change in stool character Genitourinary: Genitourinary: Denies hematuria, Denies urinary frequency, Denies dysuria, Denies urinary incontinence, Denies urinary hesitancy and Denies urinary urgency Musculoskeletal: Musculoskeletal: Reports no additional musculoskeletal complaints, Denies numbness and Denies tingling Comments: left shoulder pain Neurologic: Denies dizziness, Denies loss of vision, Denies numbness and Denies tingling Psychiatric: Psychiatric: Reports no additional psychiatric complaints Endocrine: Endocrine: Reports no additional endocrine complaints Hematologic/Lymphatic: Hematologic/Lymphatic: Reports no additional hematologic/lymphatic complaints Allergic/Immunologic: Allergic/Immunologic: Reports no additional allergic/immunologic complaints PMFSH Past Medical History Attestation statement: The following information was validated with the patient. Source: old records reviewed and nursing notes reviewed Medical History Well woman exam Nipple discharge, bloody Pelvic pain in female Galactorrhea Obese Surgical History Previous section Status post total abdominal hysterectomy Hx laparoscopic cholecystectomy Hx of appendectomy Family History Family History Father No problems noted. 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 Current occupational exposures/hazards: No Cognitive needs: No Hearing needs: No Vision needs: No Physical Exam Vital Signs: Vital Signs: Last Vital Signs Temp 98.4 F 02/29/24 13:15 Pulse 65 02/29/24 13:15 Resp 18 02/29/24 13:15 BP 116/66 02/29/24 13:15 Pulse Ox 100 02/29/24 13:15 O2 Del Method Room Air, Nasal C annula 02/29/24 13:15 BMI result Body Mass Index 20.4 Const: General: cooperative, no acute distress, alert and awake Nutritional Appearance: well nourished Orientation/consciousness: patient oriented x3 Limitations: no limitations HEENT: Head: Yes normal to inspection and Yes atraumatic Ears: hearing grossly normal bilaterally and external ears normal General nose exam: Normal external nose present, no nasal discharge noted and no epistaxis Face and sinus: Yes normal facial exam, No abrasion and No laceration Mouth: Normal oral and palatal mucosa present, no drooling and no muffled voice Eyes: General: appearance normal, both eyes and all related structures Periorbital: periorbital findings normal Eyelids: Yes eyelids normal Conjunctivae: conjunctivae normal Pupils: Equal, round and reactive pupils present EOM: EOMs intact bilaterally Neck: Neck: Yes normal visual inspection, Yes full ROM and Yes no lymphadenopathy Chest: Chest palpation & inspection: normal inspection of the chest Resp: Effort & Inspection: normal respiratory effort and able to speak in complete sentences GI: Inspection: Yes normal to inspection Neuro: General: patient oriented x3 and moves all extremities Cranial nerves: Yes Equal, round and reactive pupils present Cognition (Neuro): normal cognition Motor exam (neuro): 5/5 motor strength present throughout Sensory Exam: Normal double simultaneous stimulation for sensation Coordination: [id number] test normal Extrem: General: Yes normal to inspection, Yes full ROM and Yes capillary refill normal Psych: Appearance: grossly normal Mental Status: mental status grossly normal Affect: normal affect Attitude: cooperative Thought process: Normal thought process present Thought content: Normal thought content present Insight: Good insight present (Psych) Medications Administered Discontinued Medications Generic Name Dose Route Start Last Admin Trade Name Freq PRN Reason Stop Dose Admin Cyclobenzaprine HCl 5 mg 02/29/24 12:23 02/29/24 13:11 Cyclobenzaprine Hcl 5 Mg Tablet PO 02/29/24 12:24 5 mg ONCE ONE Administration Ketorolac Tromethamine 15 mg 02/29/24 12:23 02/29/24 13:12 Ketorolac Tromethamine 15 Mg/Ml Vial IM 02/29/24 12:24 15 mg ONCE ONE Administration Medical Decision Making Medical Decision Making MDM Narrative: Patient is a 33 year old assigned female at with a history of ovarian cysts presenting to the emergency department today with left neck and shoulder pain. Patient's physical exam was unremarkable. Patient's left shoulder x-ray showed no acute process. I explained my physical exam findings as well as all test results to the patient. I answered all questions asked by the patient. I stressed the importance of the patient taking her medication as prescribed. I stressed the importance of the patient following up with her primary care provider. I stressed the importance of the patient returning to the emergency department immediately if her symptoms were to worsen or if she were to develop any dizziness, shortness of breath, difficulty breathing, chest pain, blurry vision, loss of vision, nausea, vomiting, abdominal pain, fever, chills, back pain, or any other complaints. Patient verbalized agreement and understanding with this treatment plan and discharge. Differential Diagnosis Differential Diagnoses: The differential diagnosis associated with the presentation includes Shoulder pain Shoulder sprain Cervical radiculopathy Torticollis Admission/Observation Consideration of admission/observation: Escalation of care including admission/observation considered Patient would have been admitted to the hospital had her work up had any findings where hospital admission was appropriate and her clinical presentation warranted hospital admission. Independent Interpretation I performed an independent interpretation of an: Plain X-Ray Interpretation: My interpretation is in agreement with the radiologist's impression of this imaging study. EXAMINATION: XR SHOULDER, LEFT CLINICAL INFORMATION: Left shoulder injury and pain COMPARISON: None available. TECHNIQUE: AP external rotation, Grashey, scapular Y views of the left shoulder. FINDINGS: BONES: Bony structures are intact. There is no focal bone destruction or periosteal reaction seen. JOINTS: Alignment of joints is normal. SOFT TISSUE: Soft tissue is normal. No radiopaque foreign body or abnormal air collection is seen. XR/XR shoulder LT min 2V IMPRESSION: 1. Normal x-rays of left shoulder. No fracture or dislocation or signs of osteomyelitis are found. Dictated By: Nathaniel Watters Signed By: Electronically signed by Nathaniel Watters 02/29/24 5185 Radiology Impression Discussion of test interpretation with radiology: I have reviewed the radiologist's reading. Tests considered The following testing was considered but not selected: I considered obtaining an EKG, CBC, CMP, and troponin on this patient however, her clinical presentation is not consistent with a cardiac source. I discussed this with the patient who verbalized understanding and agreement. Prescription Management I considered prescription management with: Pain Medication (patient prescribed pain medication) Discharge Plan Discharge Clinical Impression: Cervical radiculopathy, Muscle spasm Patient Disposition: Home, Self-Care Instructions: Cervical Radiculopathy (ED), Muscle Spasm (ED) Additional Instructions: Follow up with your primary care provider. Return to the emergency department immediately if your symptoms worsen or if you develop any dizziness, shortness of breath, difficulty breathing, chest pain, blurry vision, loss of vision, nausea, vomiting, abdominal pain, fever, chills, back pain, or any other complaints. Prescriptions: New cyclobenzaprine 5 mg tablet 5 mg PO TID PRN (Reason: muscle spasm) 7 Days Qty: 21 0RF No Action ibuprofen 600 mg tablet 600 mg PO Q6H PRN (Reason: pain) Qty: 30 0RF acetaminophen [Tylenol Arthritis Pain] 650 mg tablet extended release 650 mg PO Q12H PRN (Reason: pain) Qty: 30 0RF cyclobenzaprine 10 mg tablet 10 mg PO TID PRN (Reason: muscle spasm) Qty: 14 0RF lidocaine [Lidoderm] 5 % adhesive patch,medicated 1 patch topical DAILY Qty: 30 0RF Rx Instructions: leave on most painful area for up to 12 hrs albuterol sulfate 90 mcg/actuation HFA aerosol inhaler 2 puff inhalation Q6H PRN (Reason: shortness of breath or wheezing) Qty: 6.7 0RF albuterol sulfate 5 mg/mL solution for nebulization 2.5 mg inhalation Q6H PRN (Reason: shortness of breath or wheezing) Qty: 20 0RF cholestyramine (with sugar) 4 gram powder in packet 4 g PO BID PRN (Reason: diarrhea) 30 Days Qty: 60 3RF Rx Instructions: administer w/meal; avoid other meds within 1hr before or 4-6hr after dose Referrals: Andressa Taylor MD [Primary Care Provider] - Stand Alone Forms: Work/School Release Interventions: ED Discharge Assessment Last Done: 02/29/24 13:15 Discharge Date/Time: 02/29/24 13:17 Print Language: Bengali
[2024-02-29] MEDS: Cyclobenzaprine HCl 5 MG TABLET PO (13:11)
[2024-02-29] MEDS: Ketorolac Tromethamine 15 MG/ML VIAL IM (13:12)
[2024-02-29 13:15] VITALS: BP 116/66; PULSE 65; RESP 18; TEMP 36.9; O2SAT 100
== END 2024-02-29 13:17 | disposition home or self-care (01) ==
PROVIDERS: Emergency Provider Emergency Medicine; PCP Internal Medicine
DX: M54.12 Radiculopathy, cervical region (principal); M62.838 Other muscle spasm; M25.512 Pain in left shoulder; M54.2 Cervicalgia
CPT/HCPCS: 73030; 96372; 99284; J1885

== ENCOUNTER 2024-06-07 13:28 | Outpatient (AMB) | payer OTHER, SELFPAY ==
[2024-06-07 13:32] VITALS: BP 120/70; BMI 36.3
--- NOTE | 2024-06-07 13:32 | MHC.PC.OV ---
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 Pap smear done 2022 was normal. Has history of hysterectomy. Complains of pelvic pain occasionally in left side. She is obese with a BMI of 36.3 and has tried diet and exercise with no improvement. I will start her on Wegovy for this matter. [facility] Medical History (Updated 06/07/24 @ 13:52 by Andressa Ca MD) Well woman exam Nipple discharge, bloody Pelvic pain in female Galactorrhea Obese Surgical History Previous section Status post total abdominal hysterectomy Hx laparoscopic cholecystectomy Hx of appendectomy Family History Father No problems noted. 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 Yoav Crump, Peyton Mantilla, Leonel Cuello and colleagues, with an educational tomas from [employer]. Review of Systems Const All systems reviewed & are unremarkable except as noted in HPI and below Card Denies chest pain at rest, Denies chest pain with activity, Denies edema, Denies irregular heart rhythm, Denies claudication, Denies dyspnea, Denies dyspnea on exertion, Denies orthopnea, Denies paroxysmal nocturnal dyspnea and Denies slow heart rate Resp Denies cough, Denies dyspnea and Denies dyspnea on exertion GI Denies abdominal pain, Denies change in bowel habits, Denies excessive flatus, Denies nausea and Denies vomiting Denies urinary incontinence, Denies urinary hesitancy and Denies urinary urgency Neuro Denies confusion Psych Denies confusion Physical exam (Primary Care) Vital Signs: Last Vital Signs BP 120/70 06/07/24 13:32 BMI result Body Mass Index 36.3 BMI Assessment/Plan discussion: High BMI High, discussed plan: lifestyle, weight reduction, dietary and physical activity Tobacco/Smoking Status: Tobacco use Status Tobacco use date assessed 11/22/23 11/22/23 13:49 Patient Tobacco Use Status Current everyday Tobacco 11/22/23 13:49 Tobacco use type Cigarette 11/22/23 13:46 e-Cigarette/Vaping Use Never Used 11/22/23 13:49 Are you ready to quit: No Tobacco cessation counseling provided: Yes Items discussed: Nicotine replacement and QuitWorks Relapse Prevention: discussed the importance of a supportive environment, discussed extending NRT, discussed negative mood or depression after quitting, weight gain after smoking is common and discussed dietary, exercise and/or lifestyle changes Number of minutes spent counselin CPT code: 42382 - 4-10 Minutes Thrive Assessment: Date of Thrive Assessment Date Thrive assessed 11/22/23 11/22/23 13:49 Const General: No confusion Orientation/consciousness: patient oriented x3 and No confusion HENMT Head: Yes normal to inspection, Yes normocephalic and Yes atraumatic Ears: external ears normal Eyes General: appearance normal, both eyes and all related structures Eyelids: Yes eyelids normal Conjunctivae: conjunctivae normal Neck Neck: Yes normal visual inspection and Yes supple Resp Effort & Inspection: normal respiratory effort Auscultation: clear to auscultation bilaterally Cardio Jugular venous distension: no JVD Rate: regular rate Rhythm: regular rhythm Heart sounds: S1 normal heart sound present and S2 normal heart sound present GI Inspection: Yes normal to inspection Palpation (GI): Soft to palpation and nontender Auscultation: normal bowel sounds Skin General skin exam: no rashes or lesions noted Neuro General: patient oriented x3, no focal motor deficits and No confusion Extrem General: Yes full ROM Assessment and Plan Assessment & Plan (1) Physical exam: Code(s): Z00.00 - Encounter for general adult medical examination without abnormal findings Plan: Repeat in a year. (2) Pelvic pain in female: Code(s): R10.2 - Pelvic and perineal pain Plan: Ultrasound of the pelvis ordered. (3) Class 2 obesity with body mass index (BMI) of 36.0 to 36.9 in adult: Code(s): E66.9 - Obesity, unspecified; Z68.36 - Body mass index [BMI] 36.0-36.9, adult Plan: Start Wegovy. BMI goal is less than 30. Orders: Orders Comprehensive [place]. Panel Fast Today Z00.00 - Encounter for general adult medical examination without abnormal findings US pelvic and transvaginal Today R10.2 - Pelvic and perineal pain Lipid Panel Today Z00.00 - Encounter for general adult medical examination without abnormal findings Medications: New semaglutide (weight loss) (Wegovy) administer weeks 1 through 4 of therapy 0.25 mg (0.5 mL) subcut QWEEK 4 weeks 2 mL 0RF E66.9 - Obesity, unspecified, Z68.36 - Body mass index [BMI] 36.0-36.9, adult Refilled cyclobenzaprine 5 mg PO TID 7 days PRN 21 tabs 0RF muscle spasm Coding Level of Care Code Est Pt Level 3 (95735) Est Pt Prev Care 18-39y(39254) Diagnoses Physical exam Z00.00 Pelvic pain in female R10.2 Class 2 obesity with body mass index (BMI) of 36.0 to 36.9 in adult E66.9; Z68.36 Additional Codes Vital Signs *Quality* - CPT code: 64489 - 4-10 Minutes ([id number]) Time Spent (min) 35
== END 2024-06-07 13:58 | disposition home or self-care (01) ==
PROVIDERS: PCP Internal Medicine; Visit Provider Internal Medicine
DX: Z00.00 Encounter for general adult medical examination without abnormal findings (principal); R10.2 Pelvic and perineal pain; E66.9 Obesity, unspecified; Z68.36 Body mass index [BMI] 36.0-36.9, adult
CPT/HCPCS: 99213; 99395

== ENCOUNTER 2024-06-13 08:36 | Outpatient (REF) | payer OTHER, SELFPAY ==
[2024-06-13 11:19] LABS: Alanine Aminotransferase 12 U/L (0-31); Albumin Level 4.4 g/dL (3.5-5.0); Alkaline Phosphatase 46 U/L (39-117); Anion Gap 10 (12-20); Aspartate Amino Transferase 15 U/L (5-31); Bilirubin Total 0.4 mg/dL (0.0-1.0); Blood Urea Nitrogen 11 mg/dL (9-16); Calcium 9.4 mg/dL (8.4-10.2); Carbon Dioxide 27 mmol/L (22-29); Chloride 108 mmol/L (96-108); Cholesterol 157 mg/dL (<200); Estimated Glomerular Filt Rate > 60; Glucose Fasting 85 mg/dL (60-99); HDL Cholesterol 51 mg/dL (>40); LDL Cholesterol Calculated 94 mg/dL (<100); Potassium 4.1 mmol/L (3.3-5.1); Sodium 141 mmol/L (135-145); Total Protein 7.1 g/dL (6.5-8.0); Triglycerides 61 mg/dL (<150)
== END 2024-06-13 08:37 | disposition home or self-care (01) ==
LOC: HO.LAB 08:36
PROVIDERS: PCP Internal Medicine; Visit Provider Internal Medicine
DX: Z00.00 Encounter for general adult medical examination without abnormal findings (principal)
CPT/HCPCS: 36415; 80053; 80061

== ENCOUNTER 2024-06-26 07:02 | Emergency (ER) | payer OTHER, SELFPAY ==
[2024-06-26 07:10] VITALS: BP 111/68; PULSE 82; RESP 16; TEMP 36.8; O2SAT 97; BMI 35.8
[2024-06-26 07:40] LABS: MANUAL DIFF FLAG NO
[2024-06-26 07:43] LABS: Basophils Absolute Auto 0.1 X10*3/uL (0.0-0.2); Basophils Percent Auto 0.6 % (0-2); Eosinophils Absolute Auto 0.2 X10*3/uL (0.0-0.4); Eosinophils Percent Auto 2.8 % (0-4); Hematocrit 40.5 % (37.0-47.0); Hemoglobin 13.2 g/dl (12.0-16.0); Imm Gran Abs Auto 0.03 X10*3/uL (0.00-0.03); Imm Gran Pct Auto 0.4 % (0.0-0.4); Lymphocytes Absolute Auto 1.7 X10*3/uL (1.2-4.9); Lymphocytes Percent Auto 21.8 % (20-40); Mean Corpuscular HGB Conc 32.6 g/dl (31.0-35.0); Mean Corpuscular Hemoglobin 27.3 pg (27.0-33.0); Mean Corpuscular Volume 83.9 fL (80.0-98.0); Mean Platelet Volume 10.5 fL (9.4-12.3); Monocytes Absolute Auto 0.6 X10*3/uL (0.1-1.2); Monocytes Percent Auto 7.5 % (2-11); Neutrophils Absolute Auto 5.2 x10*3/uL (2.0-8.3); Neutrophils Percent Auto 66.9 % (45-73); Platelet Count 267 X10*3/uL (160-400); Red Blood Count 4.83 X10*6/uL (4.20-5.50); Red Cell Distribution Width 13.3 % (11.0-16.0); White Blood Count 7.7 X10*3/uL (4.8-10.8)
--- NOTE | 2024-06-26 07:43 | ED_ITS ---
HPI - Abdominal Pain General Chief Complaint: Abdominal Pain Stated Complaint: Vomiting Time Seen by Provider: 06/26/24 07:28 History of Present Illness HPI narrative: Patient is a 34-year-old female presents today with having nausea vomiting diarrhea for about a day to 2 days. Patient is from home. There is no fever no chills. No recent travel. No recent antibiotics. Patient is status post hysterectomy, appendectomy, cholecystectomy. She is from home. She currently is on Ozempic for weight loss. No chest pain or diaphoresis Related Data Previous Rx's ?Medication ?Instructions ?Recorded albuterol sulfate 5 mg/mL(0.5 %) 2.5 mg (0.5 mL) inhalation Q6H PRN 08/19/23 solution for nebulization shortness of breath or wheezing #20 mL albuterol sulfate 90 mcg/actuation 2 puff inhalation Q6H PRN 08/19/23 aerosol inhaler shortness of breath or wheezing #6.7 grams acetaminophen 650 mg 650 mg PO Q12H PRN pain #30 tabs 01/17/24 tablet,extended release (Tylenol Arthritis Pain) cyclobenzaprine 5 mg tablet 5 mg PO TID PRN muscle spasm 7 06/07/24 days #21 tabs semaglutide (weight loss) 0.25 0.25 mg (0.5 mL) subcut QWEEK 4 06/07/24 mg/0.5 mL subcutaneous pen weeks #2 mL injector (Wegovy) Allergies Allergy/AdvReac Type Severity Reaction Status Date / Time No Known Allergies Allergy Verified 06/26/24 07:12 [No Known Allergies*] Review of Systems Review of Systems Positive nausea vomiting Yes all other systems are reviewed and are negative [facility] Past Medical History Attestation statement: The following information was validated with the patient. Medical History Well woman exam Nipple discharge, bloody Pelvic pain in female Galactorrhea Obese Surgical History Previous section Status post total abdominal hysterectomy Hx laparoscopic cholecystectomy Hx of appendectomy Family History Family History Father No problems noted. 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 Oriented X3. No acute distress. Eyes: Pupils equal, round and reactive to light. ENT: Pharynx normal. Neck: Normal inspection. Neck supple. No lymph nodes noted. No crepitus CVS: Normal heart rate and rhythm. Pulses normal. Normal S1 and S2 Respiratory: No respiratory distress. Breath sounds normal. No Wheezing. No rales Abdomen: Soft and nontender. No rigidity. No distention. good BS x4 Skin: Skin warm and dry. Normal skin color. Normal skin turgor. Extremities: No lower extremity edema. Neurovascular intact to all extremities. No Lacerations. No Rash Neuro: Oriented X 3. No motor deficit. No sensory deficit. Moving all extermities. No slurred speech Medical Decision Making Medical Decision Making [facility] Narrative: Positive abdominal pain nausea vomiting diarrhea earlier. Patient's labs are normal. Electrolytes are normal. Patient no acute distress. Repeat abdominal exam is soft nontender nondistended. [place] the risk of obstruction abscess perforation to be low. Patient to be discharged home. Differential Diagnosis Differential Diagnoses: The differential diagnosis associated with the presentation includes Gastroenteritis nausea vomiting obstruction abscess perforation kidney stone Admission/Observation Consideration of admission/observation: Escalation of care including admission/observation considered Lab Data [facility] Lab Attestation statement: I reviewed the patient's lab results. 06/26/24 07:35 06/26/24 07:35 Labs: Lab Results 06/26/24 Range/Units 07:35 WBC 7.7 (4.8-10.8) X10*3/uL RBC 4.83 (4.20-5.50) X10*6/uL Hgb 13.2 (12.0-16.0) g/dl Hct 40.5 (37.0-47.0) % MCV 83.9 (80.0-98.0) fL MCH 27.3 (27.0-33.0) pg MCHC 32.6 (31.0-35.0) g/dl RDW 13.3 (11.0-16.0) % Plt Count 267 D (160-400) X10*3/uL MPV 10.5 (9.4-12.3) fL Immature Gran % (Auto) 0.4 (0.0-0.4) % Neut % (Auto) 66.9 (45-73) % Lymph % (Auto) 21.8 (20-40) % [place] % (Auto) 7.5 (2-11) % Eos % (Auto) 2.8 (0-4) % Baso % (Auto) 0.6 (0-2) % Lymph # (Auto) 1.7 (1.2-4.9) X10*3/uL [place] # (Auto) 0.6 (0.1-1.2) X10*3/uL Eos # (Auto) 0.2 (0.0-0.4) X10*3/uL Baso # (Auto) 0.1 (0.0-0.2) X10*3/uL Abs Immat Gran (auto) 0.03 (0.00-0.03) X10*3/uL Absolute Neuts (auto) 5.2 (2.0-8.3) x10*3/uL Absolute Nucleated RBC 0.000 (0.0-0.012) X10*3/uL Nucleated RBC % (auto) 0.0 (0.0-0.2) /100WBC Sodium 139 (135-145) mmol/L Potassium 4.1 (3.3-5.1) mmol/L Chloride 111 H (96-108) mmol/L Carbon Dioxide 21 L (22-29) mmol/L Anion Gap 11 L (12-20) BUN 11 (9-16) mg/dL Creatinine 0.67 (0.5-1.4) mg/dL Estim Creat Clear Calc 115.5 Estimated GFR > 60 Random Glucose 93 (60-115) mg/dL Calcium 9.0 (8.4-10.2) mg/dL Magnesium 2.0 (1.6-2.6) mg/dL Total Bilirubin 0.1 (0.0-1.0) mg/dL AST 13 (5-31) U/L ALT 13 (0-31) U/L Alkaline Phosphatase 46 (39-117) U/L Total Protein 7.2 (6.5-8.0) g/dL Albumin 4.4 (3.5-5.0) g/dL Lipase 53 (8-78) U/L Beta HCG, Quant < 2 mIU/mL Influenza Type A (PCR) NEGATIVE (Negative) Influenza Type B (PCR) NEGATIVE (Negative) RSV RNA Qual (PCR) NEGATIVE (Negative) SARS-CoV-2 RNA (RT-PCR) NEGATIVE (Negative) Medications Administered Discontinued Medications Generic Name Dose Route Start Last Admin Trade Name Freq PRN Reason Stop Dose Admin Sodium Chloride 1,000 mls @ 999 mls/hr 06/26/24 08:00 06/26/24 10:16 Ns IV 06/26/24 09:00 Infused .Q1H1M RANJITH Infusion Ondansetron HCl 4 mg 06/26/24 07:55 06/26/24 08:14 Ondansetron Hcl 4 Mg/2 Ml Vial IVPUSH 06/26/24 07:56 4 mg ONCE ONE Administration Discharge Plan Discharge Clinical Impression: Gastroenteritis Patient Disposition: Home, Self-Care Instructions: Gastroenteritis (DC) Prescriptions: No Action acetaminophen [Tylenol Arthritis Pain] 650 mg tablet extended release 650 mg PO Q12H PRN (Reason: pain) Qty: 30 0RF cyclobenzaprine 5 mg tablet 5 mg PO TID PRN (Reason: muscle spasm) 7 Days Qty: 21 0RF Wegovy 0.25 mg/0.5 mL pen injector 0.25 mg subcut QWEEK 28 Days Qty: 2 0RF Rx Instructions: administer weeks 1 through 4 of therapy albuterol sulfate 90 mcg/actuation HFA aerosol inhaler 2 puff inhalation Q6H PRN (Reason: shortness of breath or wheezing) Qty: 6.7 0RF albuterol sulfate 5 mg/mL solution for nebulization 2.5 mg inhalation Q6H PRN (Reason: shortness of breath or wheezing) Qty: 20 0RF Referrals: Andressa Taylor MD [Primary Care Provider] - 06/28/24 Print Language: Indonesian
[2024-06-26 07:55] LABS: Alanine Aminotransferase 13 U/L (0-31); Albumin Level 4.4 g/dL (3.5-5.0); Alkaline Phosphatase 46 U/L (39-117); Anion Gap 11 (12-20); Aspartate Amino Transferase 13 U/L (5-31); Bilirubin Total 0.1 mg/dL (0.0-1.0); Blood Urea Nitrogen 11 mg/dL (9-16); Carbon Dioxide 21 mmol/L (22-29); Chloride 111 mmol/L (96-108); Creatinine Clr Calc Pharmacy 115.5; Estimated Glomerular Filt Rate > 60; Glucose Random 93 mg/dL (60-115); Potassium 4.1 mmol/L (3.3-5.1); Sodium 139 mmol/L (135-145); Total Protein 7.2 g/dL (6.5-8.0)
[2024-06-26 08:07] LABS: HCG Quantitative < 2 mIU/mL
[2024-06-26] MEDS: 0.9 % Sodium Chloride 1,000 ML 999 ML IV (08:10)
[2024-06-26] MEDS: ondansetron HCL 4 MG/2 ML VIAL IVPUSH (08:14)
[2024-06-26 08:20] LABS: Influenza A PCR NEGATIVE (Negative); Influenza B PCR NEGATIVE (Negative); Resp Syncy Virus RNA Qual PCR NEGATIVE (Negative); SARS COV2 PCR INHOUSE NEGATIVE (Negative)
[2024-06-26 08:32] LABS: Lipase 53 U/L (8-78)
[2024-06-26 12:00] VITALS: BP 106/67; PULSE 64; RESP 16; TEMP 36.9; O2SAT 100
[2024-06-26 12:48] VITALS: BP 106/67; PULSE 64; RESP 16; TEMP 36.9; O2SAT 100
== END 2024-06-26 12:48 | disposition home or self-care (01) ==
PROVIDERS: Physician Assistant Medical; Emergency Provider Emergency Medicine Emergency Medical Services; PCP Internal Medicine
DX: K52.9 Noninfective gastroenteritis and colitis, unspecified (principal); Z03.818 Encounter for observation for suspected exposure to other biological agents ruled out; J45.909 Unspecified asthma, uncomplicated; F17.210 Nicotine dependence, cigarettes, uncomplicated
CPT/HCPCS: 0241U; 36415; 80053; 83690; 83735; 84702; 85025; 96361; 96374; 99283; 99284; J2405

== ENCOUNTER 2024-10-22 11:49 | Outpatient (AMB) | payer OTHER, SELFPAY ==
--- NOTE | 2024-10-22 13:16 | AM.OFFWIN_ITS ---
Intake Vital Signs 10/22/24 13:17 Weight 187 lb BP 122/80 Blood Pressure Location Rt brachial Position Sitting Pulse 73 Pulse Source Pulse Oximeter Temp 98.2 F Temp Source Oral Pulse Oximetry (%) 98 Oxygen Delivery Method Room Air Intake Visit Reasons: EP body ache/sore throat Intake Note: Patient here for body aches and slight sore throat, she stated she took a covid home test which was positive but she is unsure if it is accurate. Patient Tobacco Use Status: Current everyday Tobacco user Allergies No Known Allergies [No Known Allergies*] Allergy (Verified 10/22/24 13:18) Do you need a note to return to daycare/school/sports/work: Yes PFSH Medical History Well woman exam Nipple discharge, bloody Pelvic pain in female Galactorrhea Obese Surgical History Previous section Status post total abdominal hysterectomy Hx laparoscopic cholecystectomy Hx of appendectomy Family History Father No problems noted. 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 The symptoms began early in the morning the day before the visit. She notes that her daughter, who is 18 years old, had been sick before these symptoms presented. She has not undergone any testing for COVID-19 or other infections prior to this visit. The patient admits to smoking approximately three to four cigarettes daily. She denies taking any medications on a regular basis. There is no mention of fever or other significant symptoms. Social History - Employment: Works in [employer] for a company. - Tobacco Use: Smokes approximately three to four cigarettes daily. - Family: Has an 18-year-old daughter who was recently ill. Review of Systems - Respiratory: Reports sore throat. Physical Exam General: Appearance normal, both eyes and all related structures Nutritional Appearance: Well nourished Orientation/consciousness: Patient oriented x3 Limitations: No limitations Head: Normal to inspection Neck: Normal visual inspection Chest: Normal palpation of entire chest wall Respiratory: Respiratory infection noted Neurology: Patient oriented x3 Results Plan - Prescribe antibiotics for the treatment of respiratory infection. - Recommend taking Tylenol every six hours to manage symptoms. Patient was informed and verbally consented to the use of an ambient scribe for clinic note documentation during this visit. Discussion Notes During the visit, I discussed with the patient the likely diagnosis of a respiratory infection and the management options available. The patient expressed understanding and consent to the prescribed antibiotic and the use of Tylenol for symptomatic relief. There was no indication for COVID-19 testing during this visit as per the patient?s request and absence of significant COVID- like symptoms. The patient confirmed no additional questions and understood the treatment plan. She was informed that the prescription has been sent to the pharmacy. Patient Instructions - Take prescribed antibiotics as directed. - Use Tylenol every six hours for symptom relief. - Monitor for any worsening of symptoms or new symptoms that might suggest complications. - Follow up if symptoms persist or worsen. Medications: New azithromycin take 500 mg today (day 1), then 250 mg for 4 days (days 2-5) PO 6 tabs 0RF Coding Level of Care Code Est Pt Level 3 (40878) Diagnoses Upper respiratory tract infection J06.9
[2024-10-22 13:17] VITALS: BP 122/80; PULSE 73; TEMP 36.8; O2SAT 98
== END 2024-10-22 13:50 | disposition home or self-care (01) ==
PROVIDERS: PCP Internal Medicine; Visit Provider Internal Medicine
DX: J06.9 Acute upper respiratory infection, unspecified (principal)

== ENCOUNTER → 2024-10-22 11:49 | Outpatient (BNVA) | payer OTHER, SELFPAY | PROVIDERS: PCP Internal Medicine; Visit Provider Internal Medicine | DX: J06.9 Acute upper respiratory infection, unspecified (principal) | CPT/HCPCS: 99212 ==

== ENCOUNTER 2024-10-24 09:38 | Outpatient (AMB) | payer OTHER, SELFPAY ==
[2024-10-24 09:42] VITALS: BP 112/70; BMI 34.6
--- NOTE | 2024-10-24 09:42 | A.OFFPC_ITS ---
Vital Signs 10/24/24 09:42 Height 5 ft 1 in Weight 183 lb BMI 34.6 BP 112/70 Blood Pressure Location Lt brachial Position Sitting Intake Visit Reasons: Wegovy review Community Integration Specialist Required: No Accompanied by: Self / Same As Patient Allergies No Known Allergies [No Known Allergies*] Allergy (Verified 10/24/24 10:03) Medication List - Last Reconciled 10/24/24 by Andressa Ca MD acetaminophen ER (Tylenol Arthritis Pain) 650 mg PO Q12H PRN albuterol sulfate 90 mcg/actuation 2 puffs inhalation Q6H PRN albuterol sulfate 2.5 mg (0.5 mL) inhalation Q6H PRN cyclobenzaprine 5 mg PO TID PRN 7 days semaglutide (weight loss) (Wegovy) 1.7 mg (0.75 mL) subcut QWEEK 4 weeks Tobacco use date assessed: 10/24/24 Dental Screening Dental Screen Date: 10/24/24 Did you have a dental visit in the last 12 months?: Yes Did you have a dental problem in the last 6 months where you did not have access to dental care?: No Was dental information given to patient?: Patient has dentist HPI HPI Comments History of Present Illness Details This is a 34-year-old female that comes today for follow-up on her weight. She has been on Wegovy and has been losing weight. Denies any side effects. Doing well. Started this medication around July and in June she weight at 189 and now weight is 183 lb. Advised to continue medications. [facility] Medical History (Updated 10/24/24 @ 13:08 by Andressa Ca MD) Class 2 obesity with body mass index (BMI) of 36.0 to 36.9 in adult Well woman exam Nipple discharge, bloody Pelvic pain in female Galactorrhea Obese Surgical History Previous section Status post total abdominal hysterectomy Hx laparoscopic cholecystectomy Hx of appendectomy Family History Father No problems noted. 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 1. Little interest or pleasure in doing things: not at all 2. Feeling down, depressed, or hopeless: not at all 3. Trouble falling or staying asleep, or sleeping too much: not at all 4. Feeling tired or having little energy: not at all 5. Poor appetite or overeating: not at all 6. Feeling bad about yourself - or that you are a failure or have let yourself or your family down: not at all 7. Trouble concentrating on things, such as reading the newspaper or watching television: not at all 8. Moving or speaking so slowly that other people could have noticed. Or the opposite - being so fidgety or restless that you have been moving around a lot more than usual: not at all 9. Thoughts that you would be better off or of hurting yourself in some way: not at all Total score: 0 Depression Screening Interpretation: Negative Depression Screening Done: Yes 80523 - PHQ-9 Billing: Yes Source: Developed by Drs. Yoav Crump, Peyton Mantilla, Leonel Cuello and colleagues, with an educational tomas from [employer]. Thrive Questionnaire Date Thrive assessed: 10/24/24 I am a: Patient What is your living situation today?: I have a steady place to live Within the past 12 months, did the food you bought not last and you didn't have the money to get more?: Never true Within the past 12 months, did you worry whether your food would run out before you got money to buy more?: Never true Do you have trouble paying for medicines?: No Do you have trouble getting transportation to medical appointments?: No Do you have trouble paying your heating and electricity bill?: No Do you have trouble taking care of your child, family member or friend?: No Do you have trouble with day-to-day activities such as bathing, preparing meals, shopping, managing finances, etc.?: No Are you currently unemployed and looking for a job?: No Are you interested in more education?: No Please select the resources that you would like help with: None Currently or been in a relationship where the following occur: No concerns reported THRIVE Score: 0 AUDIT C Alcohol Use Questionnaire (AUDIT-C) 1. How often do you have a drink containing alcohol?: Monthly or less 2. How many drinks containing alcohol do you have on a typical day when you are drinking?: 1 or 2 3. How often do you have six or more drinks on one occasion?: Never Total Score: 1 Score Reviewed/Action Taken: No DAISY-7 AMB Questionnaire DAISY-7 Date DAISY - 7 assessed: 10/24/24 Feeling nervous, anxious, or on edge: 1 = Several days Not being able to stop or control worryin = Not at all Worrying too much about different things: 1 = Several days Trouble relaxin = Not at all Being so restless that it is hard to sit still: 0 = Not at all Becoming easily annoyed or irritable: 1 = Several days Feeling afraid as if something awful might happen: 0 = Not at all Total DAISY-7 score (0-4 normal; 5-9 mild; 10-14 moderate; 15-21 severe): 3 Source: Developed by Drs. Yoav Crump, Peyton Mantilla, Leonel Cuello and colleagues, with an educational tomas from [employer]. DAISY-7 Assessment Billing DAISY-7 Assessment Tool: DAISY-7 Assessment 10037 Review of Systems Const All systems reviewed & are unremarkable except as noted in HPI and below Eyes Reports no additional complaints, Denies change in vision and Denies other visual disturbances Card Denies chest pain at rest, Denies chest pain with activity, Denies edema, Denies irregular heart rhythm, Denies claudication, Denies dyspnea, Denies dyspnea on exertion, Denies orthopnea, Denies paroxysmal nocturnal dyspnea and Denies slow heart rate Resp Denies cough, Denies dyspnea and Denies dyspnea on exertion GI Denies abdominal pain, Denies change in bowel habits, Denies excessive flatus, Denies nausea and Denies vomiting Denies urinary incontinence, Denies urinary hesitancy and Denies urinary urgency Musc Denies abnormal gait, Denies atrophy, Denies deformity and Denies limited range of motion Skin/Breast Denies bleeding lesions, Denies changing lesions and Denies rash Neuro Denies abnormal gait, Denies behavioral changes and Denies lack of coordination Psych Denies behavioral changes Physical exam (Primary Care) Vital Signs: Last Vital Signs BP 112/70 10/24/24 09:42 BMI result Body Mass Index 34.6 BMI Assessment/Plan discussion: High BMI High, discussed plan: lifestyle, weight reduction, dietary and physical activity Tobacco/Smoking Status: Tobacco use Status Tobacco use date assessed 10/24/24 10/24/24 09:47 Patient Tobacco Use Status Current everyday Tobacco 10/24/24 09:47 Tobacco use type Cigarette 10/24/24 09:47 e-Cigarette/Vaping Use Never Used 10/24/24 09:47 PHQ-9: PHQ-9 Score PHQ-9: Total score 0 10/24/24 10:06 Depression Screening Interpretation: Negative Thrive Assessment: Date of Thrive Assessment Date Thrive assessed 10/24/24 10/24/24 09:47 Currently or been in a relationship where the following occur: No concerns reported Resp Effort & Inspection: normal respiratory effort Auscultation: clear to auscultation bilaterally Cardio Jugular venous distension: no JVD Rate: regular rate Rhythm: regular rhythm Heart sounds: S1 normal heart sound present and S2 normal heart sound present Extrem General: Yes full ROM Office Procedures Flu Questionnaire Does the patient have a severe egg allergy?: No Does the patient have severe life threatening allergies?: No Does the patient have a fever or illness today?: No Has the patient ever had Guillain-Magazine Syndrome?: No Has the patient ever had any past reaction to a flu shot?: No Immunizations Fluarix Triv [id number] (PF) 45 mcg (15 mcg x 3)/0.5 mL IM syringe Performing Provider: Andressa Ca MD [place] [facility] [facility] Administered by: NEGAR Lynch on 10/24/24 10:13 Dose Route Admin Location Dispensed Lot Number Expiration Date [facility] Wire Spooler 0.5 mL IM Left Deltoid 0.5 mL [id number] 04/15/25 [id number] [employer] VIS Given Date VIS Provided VIS Publication Date 10/24/24 Single Vaccine 21 Eligibility Eligibility Date Funding Source Not VFC Eligible 10/24/24 Private Coding Level of Care Code Est Pt Level 3 (27136) Complex EM visit Add On G2211 Diagnoses Obesity (BMI 30.0-34.9) E66.811 Additional Codes DAISY-7 Assessment Billing - DAISY-7 Assessment Tool: DAISY-7 Assessment 38440 ([id number]) PHQ-9 - 13505 - PHQ-9 Billing: Yes ([id number]) Time Spent (min) 19 Assessment & Plan Assessment & Plan (1) Obesity (BMI 30.0-34.9): Code(s): E66.811 - Obesity, class 1 Category: Medical Plan: Continue WEgovy. Orders: Orders Influenza [id number] Immunization Today Z23 - Encounter for immunization Medications: New semaglutide (weight loss) (Wegovy) administer weeks 5 through 8 of therapy 0.5 mg (0.5 mL) subcut QWEEK 4 weeks 2 mL 0RF E66.811 - Obesity, class 1 semaglutide (weight loss) (Wegovy) administer weeks 5 through 8 of therapy 0.5 mg (0.5 mL) subcut QWEEK 2 mL 0RF 4 weeks E66.811 - Obesity, class 1 Discontinued semaglutide (weight loss) (Wegovy) administer weeks 13 through 16 of therapy Discontinued Reason: Patient Completed Course 1.7 mg (0.75 mL) subcut QWEEK 4 weeks 3 mL 0RF E66.9 - Obesity, unspecified, Z68.36 - Body mass index [BMI] 36.0-36.9, adult Patient Instructions: Advised to follow a diet and to exercise 30 minutes for 5 days per week.
== END 2024-10-24 10:17 | disposition home or self-care (01) ==
PROVIDERS: PCP Internal Medicine; Visit Provider Internal Medicine
DX: E66.811 Obesity, class 1 (principal); Z68.34 Body mass index [BMI] 34.0-34.9, adult; Z23 Encounter for immunization

== ENCOUNTER → 2024-10-24 09:38 | Outpatient (BNVA) | payer OTHER, SELFPAY | PROVIDERS: PCP Internal Medicine; Visit Provider Internal Medicine | DX: E66.811 Obesity, class 1 (principal); Z68.36 Body mass index [BMI] 36.0-36.9, adult; Z23 Encounter for immunization | CPT/HCPCS: 90471; 90656; 96127; 99212 ==

== ENCOUNTER 2024-12-12 15:16 | Outpatient (AMB) | payer OTHER, SELFPAY ==
[2024-12-12 15:32] VITALS: BP 100/72; PULSE 69; RESP 16; TEMP 36.8; O2SAT 99; BMI 34.4
--- NOTE | 2024-12-12 15:32 | AM.OFFWIN_ITS ---
Intake Vital Signs 12/12/24 15:32 Height 5 ft 1 in Weight 182 lb BMI 34.4 BP 100/72 Blood Pressure Location Rt brachial Position Sitting Respiration 16 Pulse 69 Pulse Source Pulse Oximeter Temp 98.3 F Temp Source Oral Pulse Oximetry (%) 99 Oxygen Delivery Method Room Air Intake Visit Reasons: EP-body rash Intake Note: Pt is her today c/o body rash itchy x2days Patient Tobacco Use Status: Current everyday Tobacco user Allergies No Known Allergies [No Known Allergies*] Allergy (Verified 12/12/24 15:35) HPI HPI Comments History of Present Illness Details History of Present Illness - The patient is a 34-year-old female pr esenting with an itchy rash affecting multiple areas of the body, which appears to be consistent with contact dermatitis. - The rash began on the arms and progres sively spread to the abdomen, back, and legs. - No new consumables such as foods or me dications have been introduced coinciding with the rash's onset. 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 - She has not experienced similar sympto ms from new clothing, sheets, or other fabric materials. - The itching is significant; however, n o additional systemic symptoms were reported. - The patient has initiated preventive m easures by utilizing protective clothing at work. Physical Exam General: Cooperative, healthy appearing, comfortable, no acute distress and well developed Orientation: Patient oriented x3 Limitations: No limitations Head: Normal to inspection Ears: Hearing grossly normal bilaterally Nose: Normal external nose present Face and sinus: Normal facial exam Eyes: Appearance normal, both eyes and all related structures Neck: Normal visual inspection and Yes full ROM Respiratory: Normal respiratory effort and able to speak in complete sentences. Skin: fulminant urticarial rash on bilateral arms, back and abdomen, no warmth or signs of infection noted. Neuro: Patient oriented x3 Extremities: Normal to inspection [facility] Medical History (Updated 12/12/24 @ 16:06 by Liz Chaparro PA-C) Class 2 obesity with body mass index (BMI) of 36.0 to 36.9 in adult Well woman exam Nipple discharge, bloody Pelvic pain in female Galactorrhea Obese Surgical History Previous section Status post total abdominal hysterectomy Hx laparoscopic cholecystectomy Hx of appendectomy Family History Father No problems noted. 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 Current occupational exposures/hazards: No Cognitive needs: No Hearing needs: No Vision needs: No Review of Systems Const All systems reviewed & are unremarkable except as noted in HPI and below Physical Exam Vital Signs: Last Vital Signs Temp 98.3 F 12/12/24 15:32 Pulse 69 12/12/24 15:32 Resp 16 12/12/24 15:32 BP 100/72 12/12/24 15:32 Pulse Ox 99 12/12/24 15:32 Oxygen Delivery Method Room Air 12/12/24 15:32 BMI result Body Mass Index 34.4 Assessment & Plan Assessment & Plan (1) Contact dermatitis: Code(s): L25.9 - Unspecified contact dermatitis, unspecified cause Qualifiers: Contact dermatitis type: allergic Contact dermatitis trigger: unspecified trigger Qualified Code(s): L23.9 - Allergic contact dermatitis, unspecified cause Plan: The patient is experiencing contact dermatitis potentially associated with workplace irritants. I prescribed hydroxyzine to relieve itching and methylprednisolone as a tapered course to treat the dermatitis. Instructions were given for the administration of the medications and to use them as directed to ensure effectiveness. Protective measures at work, such as wearing long sleeves and gloves, were recommended to prevent further contact with possible irritants. The patient was also given a work excuse note to limit exposure in the next few days. Further diagnostics or specialist consultations are not required at this moment. Patient was informed and verbally consented to the use of an ambient scribe for clinic note documentation during this visit. Medications: New methylprednisolone PO PER PKG DIR for 6 days 21 ea 0RF hydroxyzine HCl 25 mg PO BEDTIME 14 tabs 0RF Coding Level of Care Code Est Pt Level 3 (89503) Diagnoses Allergic contact dermatitis, unspecified trigger L23.9 Contact dermatitis type: allergic Contact dermatitis trigger: unspecified trigger
== END 2024-12-12 16:13 | disposition home or self-care (01) ==
PROVIDERS: PCP Internal Medicine; Visit Provider Physician Assistant
DX: L23.9 Allergic contact dermatitis, unspecified cause (principal)

== ENCOUNTER → 2024-12-12 15:16 | Outpatient (BNVA) | payer OTHER, SELFPAY | PROVIDERS: PCP Internal Medicine | DX: L23.9 Allergic contact dermatitis, unspecified cause (principal) | CPT/HCPCS: 99212 ==

== ENCOUNTER 2025-01-10 08:59 | Outpatient (AMB) | payer OTHER, SELFPAY ==
--- NOTE | 2025-01-10 09:03 | MHC.OFFVIS ---
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 No complaints. Last Pap/HPV was negative in 07/09 [facility] Medical History (Updated 01/10/25 @ 09:11 by Emeka Jauregui MD) Well woman exam Class 2 obesity with body mass index (BMI) of 36.0 to 36.9 in adult Nipple discharge, bloody Pelvic pain in female Galactorrhea Obese Surgical History Previous section Status post total abdominal hysterectomy Hx laparoscopic cholecystectomy Hx of appendectomy Family History Father No problems noted. 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 Current occupational exposures/hazards: No Cognitive needs: No Hearing needs: No Vision needs: No Female Reproductive History Menstrual Total pregnancies: 4 Full term: 3 Number of Living Children: 3 Date of last pap smear: 07/04/23 (negative pap smear, negative hpv ) Date of Mammogram: 02/19/21 (bi rad 2) Review of Systems Const All systems reviewed & are unremarkable except as noted in HPI and below Card Reports as per HPI Resp Reports as per HPI GI Reports as per HPI and Reports no additional complaints Reports as per HPI Physical Exam Const General: cooperative, healthy appearing and comfortable Chest Chest palpation & inspection: normal inspection of the chest and normal palpation of entire chest wall Breast/axilla inspection: normal inspection of the breasts and normal inspection of the axillae Breast/axilla palpation: normal palpation of the breasts, normal palpation of the axillae and no axillary lymphadenopathy Resp Effort & Inspection: normal respiratory effort Auscultation: clear to auscultation bilaterally Percussion: percussion normal Cardio Palpation: normal PMI Rate: regular rate Rhythm: regular rhythm Heart sounds: no murmurs and no rubs Peripheral pulses: Peripheral pulses 2+ throughout GI Inspection: Yes normal to inspection Palpation (GI): Soft to palpation, nontender, no guarding, not rigid and No hepatosplenomegaly present Percussion: Yes normal to percussion Auscultation: normal bowel sounds Rectal Exam - Female: deferred General: Yes bladder normal to palpation External Female Exam: No lesion Speculum Exam - Vagina: normal appearance of the vagina, normal palpation, normal vaginal discharge and not erythematous Speculum Exam - Cervix: normal appearance of the cervix and normal palpation Bimanual exam- vagina & uterus: normal bimanual exam, normal palpation, uterine size normal, bladder normal to palpation, consistency normal and normal palpation Bimanual Exam- Adnexa, other: normal adnexae, no masses and no tenderness Assessment & Plan Assessment & Plan (1) Well woman exam: Code(s): Z01.419 - Encounter for gynecological examination (general) (routine) without abnormal findings Category: Medical Plan: Cotesting done. Counseled the patient about the recommended dietary allowance of 1000 mg of Calcium & 600 IU of vitamin D. The patient was instructed to perform monthly self-breast exams and to schedule an annual exam in a year; All questions answered and the patient verbalized understanding. Instructed the patient to schedule annual exam in a year Coding Level of Care Code Est Pt Prev Care 18-39y(17760) Diagnoses Well woman exam Z01.419
== END 2025-01-10 09:17 | disposition home or self-care (01) ==
LOC: HO.HWS 08:59
PROVIDERS: PCP Internal Medicine; Visit Provider Obstetrics & Gynecology
DX: Z01.419 Encounter for gynecological examination (general) (routine) without abnormal findings (principal)
CPT/HCPCS: 99395; 99459

== ENCOUNTER → 2025-01-10 08:59 | Outpatient (BNVA) | payer OTHER, SELFPAY | PROVIDERS: PCP Internal Medicine; Visit Provider Obstetrics & Gynecology | DX: Z01.419 Encounter for gynecological examination (general) (routine) without abnormal findings (principal) | CPT/HCPCS: 99395; 99459 ==

== ENCOUNTER 2025-02-11 13:33 | Outpatient (AMB) | payer OTHER, SELFPAY ==
--- NOTE | 2025-02-11 13:37 | MHC.PC.OV ---
Vital Signs 02/11/25 13:39 Height 5 ft 1 in Weight 183 lb BMI 34.6 BP 120/60 Blood Pressure Location Lt brachial Position Sitting Pulse 83 Pulse Source Pulse Oximeter Temp 97.5 F Temp Source Temporal Artery Scan Pulse Oximetry (%) 96 Oxygen Delivery Method Room Air Intake Visit Reasons: Body rash Intake Note: Patient is here to follow up on Body rash. Denture Packer Required: Yes Denture Packer Language: Buckle Attaching Machine Operator Name: [place] ([id number]) Information Interpreted: non-clinical & clinical [employer] Manager: Not Required per policy Accompanied by: Self / Same As Patient Allergies No Known Allergies [No Known Allergies*] Allergy (Verified 02/11/25 13:47) Medication List - Last Reconciled 02/11/25 by Marley Malcolm PA-C No Known Home Meds Tobacco use date assessed: 02/11/25 Dental Screening Dental Screen Date: 10/24/24 HPI Body rash HPI Details 34-year-old female with past medical history of obesity, asthma last seen by Dr. Ramírez 10/2024 coming in for acute problem.? In review of the notes, patient was seen in walk-in clinic 11/2024 for contact dermatitis given steroid and hydroxyzine discharged home. translator interpreter [place] ([id number]) was used for the duration of this visit. Presenting with recurrent dermatitis with pruritus. She has experienced a worsening of the rash, with extension to the abdomen and back, sometimes located where clothing contacts the skin. She had been prescribed steroids at a prior visit which reduced but did not completely resolve her symptoms. She denies any recent exposures to new soaps, detergents, or environmental changes that could account for the rash. The patient does not report any systemic symptoms or new medication use. Previously rash was thought to be related to job-related chemical exposure. [facility] Medical History Well woman exam Class 2 obesity with body mass index (BMI) of 36.0 to 36.9 in adult Nipple discharge, bloody Pelvic pain in female Galactorrhea Obese Surgical History Previous section Status post total abdominal hysterectomy Hx laparoscopic cholecystectomy Hx of appendectomy Family History Father No problems noted. 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 1. Little interest or pleasure in doing things: several days 2. Feeling down, depressed, or hopeless: not at all 3. Trouble falling or staying asleep, or sleeping too much: several days 4. Feeling tired or having little energy: not at all 5. Poor appetite or overeating: not at all 6. Feeling bad about yourself - or that you are a failure or have let yourself or your family down: not at all 7. Trouble concentrating on things, such as reading the newspaper or watching television: not at all 8. Moving or speaking so slowly that other people could have noticed. Or the opposite - being so fidgety or restless that you have been moving around a lot more than usual: not at all 9. Thoughts that you would be better off or of hurting yourself in some way: not at all Total score: 2 Depression Screening Interpretation: Positive Depression Screening Done: Yes Source: Developed by Drs. Yoav Crump, Peyton Mantilla, Leonel Cuello and colleagues, with an educational tomas from [employer]. Thrive Questionnaire Date Thrive assessed: 10/24/24 I am a: Patient What is your living situation today?: I have a steady place to live Within the past 12 months, did the food you bought not last and you didn't have the money to get more?: I choose not to answer this question Within the past 12 months, did you worry whether your food would run out before you got money to buy more?: I choose not to answer this question Do you have trouble paying for medicines?: No Do you have trouble getting transportation to medical appointments?: No Do you have trouble paying your heating and electricity bill?: No Do you have trouble taking care of your child, family member or friend?: No Do you have trouble with day-to-day activities such as bathing, preparing meals, shopping, managing finances, etc.?: No Are you currently unemployed and looking for a job?: No Are you interested in more education?: No Please select the resources that you would like help with: None Currently or been in a relationship where the following occur: I choose not to answer THRIVE Score: 0 AUDIT C Alcohol Use Questionnaire (AUDIT-C) 1. How often do you have a drink containing alcohol?: Monthly or less 2. How many drinks containing alcohol do you have on a typical day when you are drinking?: 3 or 4 3. How often do you have six or more drinks on one occasion?: Never Total Score: 2 DAISY-7 AMB Questionnaire DAISY-7 Date DAISY - 7 assessed: 10/24/24 Feeling nervous, anxious, or on edge: 0 = Not at all Not being able to stop or control worryin = Not at all Worrying too much about different things: 0 = Not at all Trouble relaxin = Not at all Being so restless that it is hard to sit still: 0 = Not at all Becoming easily annoyed or irritable: 1 = Several days Feeling afraid as if something awful might happen: 0 = Not at all Total DAISY-7 score (0-4 normal; 5-9 mild; 10-14 moderate; 15-21 severe): 1 Source: Developed by Drs. Yoav Crump, Peyton Mantilla, Leonel Cuello and colleagues, with an educational tomas from [employer]. Review of Systems Const Denies body aches, Denies chills, Denies fever(s) and Denies poor appetite Eyes Reports no additional complaints ENT Denies dysphagia, Denies lip swelling, Denies odynophagia and Denies sore throat Card Denies chest pain and Denies dyspnea Resp Denies cough and Denies dyspnea GI Denies dysphagia, Denies nausea, Denies odynophagia and Denies vomiting Reports no additional complaints Skin/Breast Reports as per HPI Psych Reports no additional complaints Aller/Immun Denies lip swelling Physical exam (Primary Care) Vital Signs: Last Vital Signs Temp 97.5 F 02/11/25 13:39 Pulse 83 02/11/25 13:39 BP 120/60 02/11/25 13:39 Pulse Ox 96 02/11/25 13:39 Oxygen Delivery Method Room Air 02/11/25 13:39 BMI result Body Mass Index 34.6 Tobacco/Smoking Status: Tobacco use Status Tobacco use date assessed 02/11/25 02/11/25 13:47 Patient Tobacco Use Status Current everyday Tobacco 02/11/25 13:47 Tobacco use type Cigarette 02/11/25 13:47 e-Cigarette/Vaping Use Never Used 02/11/25 13:47 PHQ-9: PHQ-9 Score PHQ-9: Total score 2 02/11/25 13:47 Depression Screening Interpretation: Positive Thrive Assessment: Date of Thrive Assessment Date Thrive assessed 10/24/24 02/11/25 13:47 Currently or been in a relationship where the following occur: I choose not to answer Const General: cooperative, healthy appearing, comfortable and no acute distress Orientation/consciousness: patient oriented x3 HENMT Head: Yes normocephalic Ears: hearing grossly normal bilaterally General nose exam: Normal external nose present Eyes General: appearance normal, both eyes and all related structures Conjunctivae: conjunctivae normal Neck Neck: Yes full ROM and Yes no lymphadenopathy Resp Effort & Inspection: normal respiratory effort Auscultation: clear to auscultation bilaterally, no crackles, no rales, no rhonchi and no wheezes Cardio Rate: regular rate Rhythm: regular rhythm Skin Other: scattered areas of erythematous maculopapular rash on the abdomen, back and flexor surfaces of arms and legs Neuro General: patient oriented x3 Gait exam (Neuro): Normal gait present Extrem General: Yes normal to inspection, Yes full ROM and No edema Psych Affect: normal affect Attitude: cooperative Insight: Good insight present (Psych) Judgement: Good judgement present (Psych) Coding Level of Care Code Est Pt Level 3 (30737) Diagnoses Allergic contact dermatitis, unspecified trigger L23.9 Contact dermatitis trigger: unspecified trigger Contact dermatitis type: allergic Assessment & Plan Assessment & Plan (1) Contact dermatitis: Code(s): L25.9 - Unspecified contact dermatitis, unspecified cause Category: Medical Qualifiers: Contact dermatitis trigger: unspecified trigger Contact dermatitis type: allergic Qualified Code(s): L23.9 - Allergic contact dermatitis, unspecified cause Plan: I will initiate a taper of oral steroids to treat the patient's chronic recurrent dermatitis, addressing inflammation associated with the spreading rash. There is a recommendation for using scent-free, dye-free detergents as a preventive measure for potential contact dermatitis. I will prescribe an oral antihistamine and topical Benadryl to control pruritus effectively. I will refer her to an manager telecom to evaluate potential allergens contributing to dermatitis. The patient is advised to seek follow-up care if symptoms persist eight days post-treatment initiation. Reviewed with patient red flag symptoms and when to present for re-evaluation. Plan This note was constructed using voice recognition software. While every effort has been made to ensure accuracy and knife blade polisher, still areas may have been included sometimes these areas may affect the content or meeting of the given symptoms. Total time spent caring for the patient today was 20 minutes. This includes time spent before the visit reviewing the chart, time spent during the visit, and time spent after the visit and documentation. Patient was informed and verbally consented to the use of an ambient scribe for clinic note documentation during this visit. Orders: Referrals Allergy & Immunology Referral L23.9 - Allergic contact dermatitis, unspecified cause Medications: New hydroxyzine HCl 25 mg PO BID PRN 20 tabs 0RF itching diphenhydramine HCl 2% (Benadryl) 1 appl topical BID PRN 103 mL 0RF itching prednisone Take 4 tablets on days 1-2, take 3 tablets on days 3-4, take 2 tablets on days 5-6, take 1 tablet on days 7-8. 10 mg PO DIRECTED 20 tabs 0RF
[2025-02-11 13:39] VITALS: BP 120/60; PULSE 83; TEMP 36.4; O2SAT 96; BMI 34.6
== END 2025-02-11 14:13 | disposition home or self-care (01) ==
LOC: HO.HMCH 13:34
PROVIDERS: PCP Internal Medicine
DX: L23.9 Allergic contact dermatitis, unspecified cause (principal)

== ENCOUNTER → 2025-02-11 13:33 | Outpatient (BNVA) | payer OTHER, SELFPAY | PROVIDERS: PCP Internal Medicine | DX: L23.9 Allergic contact dermatitis, unspecified cause (principal) | CPT/HCPCS: 99212 ==

== ENCOUNTER 2025-02-18 09:12 | Outpatient (AMB) | payer OTHER, SELFPAY ==
--- NOTE | 2025-02-18 09:46 | AM.OFFWIN_ITS ---
Intake Vital Signs 02/18/25 09:54 Weight 187 lb BP 118/70 Blood Pressure Location Lt brachial Position Sitting Pulse 78 Pulse Source Pulse Oximeter Pulse Oximetry (%) 98 Oxygen Delivery Method Room Air Intake Visit Reasons: EP RT shoulder injury/WC Intake Note: Patient here for right shoulder pain that radiates to the neck. she states she was picking up about 100 boxes that weighed about 80 lbs at work around february 05 and since then she has been struggling. Patient Tobacco Use Status: Current everyday Tobacco user Allergies No Known Allergies [No Known Allergies*] Allergy (Verified 02/18/25 09:55) Do you need a note to return to daycare/school/sports/work: Yes HPI HPI Comments History of Present Illness Details 34 y/o Female patient who presents to [facility] walk in clinic with c/o right shoulder pain that radiates to the neck for 2 weeks now. she states she was picking up about 100 boxes that weighed ~ 80 lbs at work. [facility] Medical History (Updated 02/18/25 @ 10:35 by Teagan Stevens NP) Muscle strain of right shoulder Well woman exam Class 2 obesity with body mass index (BMI) of 36.0 to 36.9 in adult Nipple discharge, bloody Pelvic pain in female Galactorrhea Obese Surgical History Previous section Status post total abdominal hysterectomy Hx laparoscopic cholecystectomy Hx of appendectomy Family History Father No problems noted. 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 Current occupational exposures/hazards: No Cognitive needs: No Hearing needs: No Vision needs: No Review of Systems Const All systems reviewed & are unremarkable except as noted in HPI and below Physical Exam Vital Signs: Last Vital Signs Pulse 78 02/18/25 09:54 BP 118/70 02/18/25 09:54 Pulse Ox 98 02/18/25 09:54 Oxygen Delivery Method Room Air 02/18/25 09:54 Const General: no acute distress Nutritional Appearance: obese Orientation/consciousness: patient oriented x3 Neuro General: patient oriented x3, gait normal and moves all extremities Motor exam (neuro): 5/5 motor strength present throughout Extrem Right upper extremity: shoulder/upper arm Details: normal to inspection, tenderness Location: of the A-C joint and of the scapula and abnormal ROM Details: pain with active ROM and pain with passive ROM; no crepitus Left upper extremity: normal to inspection and full ROM Assessment & Plan Assessment & Plan (1) Muscle strain of right shoulder: Code(s): S46.911A - Strain of unspecified muscle, fascia and tendon at shoulder and upper arm level, right arm, initial encounter Qualifiers: Encounter type: initial encounter Qualified Code(s): S46.911A - Strain of unspecified muscle, fascia and tendon at shoulder and upper arm level, right arm, initial encounter Plan: Ordered Physical Therapy Ordered Flexeril, NSAIDs and Lidocaine patches. Ice/Hot. Orders: Orders PT Evaluation and Treatment Today S46.911A - Strain of unspecified muscle, fascia and tendon at shoulder and upper arm level, right arm, initial encounter Medications: New ibuprofen 800 mg PO Q8H 20 tabs 0RF S46.911A - Strain of unspecified muscle, fascia and tendon at shoulder and upper arm level, right arm, initial encounter cyclobenzaprine 10 mg PO BEDTIME 14 tabs 0RF S46.911A - Strain of unspecified muscle, fascia and tendon at shoulder and upper arm level, right arm, initial encounter lidocaine 5% leave on most painful area for up to 12 hrs 1 patch topical DAILY 30 ea 0RF S46.911A - Strain of unspecified muscle, fascia and tendon at shoulder and upper arm level, right arm, initial encounter Coding Level of Care Code Est Pt Level 4 (90880) Diagnoses Muscle strain of right shoulder, initial encounter S46.911A Encounter type: initial encounter Time Spent (min) 20
[2025-02-18 09:54] VITALS: BP 118/70; PULSE 78; O2SAT 98
== END 2025-02-18 10:38 | disposition home or self-care (01) ==
PROVIDERS: PCP Internal Medicine; Visit Provider Nurse Practitioner Family
DX: S46.911A Strain of unspecified muscle, fascia and tendon at shoulder and upper arm level, right arm, initial encounter (principal)

== ENCOUNTER → 2025-02-18 09:12 | Outpatient (BNVA) | payer OTHER, SELFPAY | PROVIDERS: PCP Internal Medicine; Visit Provider Nurse Practitioner Family | DX: S46.911A Strain of unspecified muscle, fascia and tendon at shoulder and upper arm level, right arm, initial encounter (principal); X50.0XXA Overexertion from strenuous movement or load, initial encounter; Y93.9 Activity, unspecified; Y92.9 Unspecified place or not applicable; Y99.0 Civilian activity done for income or pay | CPT/HCPCS: 99212 ==

== ENCOUNTER 2025-03-13 09:03 | Emergency (ER) | payer OTHER, SELFPAY ==
--- NOTE | ~2025-03-13 | XR_ITS ---
EXAMINATION: XR SHOULDER, RIGHT CLINICAL INFORMATION: pain COMPARISON: 02/29/2024. TECHNIQUE: AP external rotation, Grashey, scapular Y, and axillary views of the right shoulder. FINDINGS: Normal bone mineralization. No fracture, dislocation, or suspicious bone lesion. Normal alignment. The glenohumeral joint is normal. The AC joint is normal. There is a type II acromion. No undersurface spurring. The subacromial space is preserved. Remainder of the soft tissue and bony structures appear normal. XR/XR shoulder RT min 2V IMPRESSION: Normal right shoulder. Electronically signed by: Thad Taylor MD 03/13/2025 10:06 AM EDT
[2025-03-13 09:25] VITALS: BP 123/75; PULSE 80; RESP 16; TEMP 36.3; O2SAT 98; BMI 35.2
--- NOTE | 2025-03-13 09:31 | ED_ITS ---
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 She has no numbness or weakness, she is R hand dominant she tells us her PCP and work connection know she is waiting to hear from PT. She has no other injuries hurts to range her shoulder and she feels a click sometimes MD Complaint: joint pain Onset (ago): week(s) (3) Pain Consistency: intermittent Location: right and upper extremity Quality: aching Radiation: none Exacerbating factors: range of motion and palpation Associated symptoms: denies other symptoms Context: other (work injury) Related Data Previous Rx's ?Medication ?Instructions ?Recorded hydroxyzine HCl 25 mg tablet 25 mg PO BID PRN itching #20 tabs 02/11/25 cyclobenzaprine 10 mg tablet 10 mg PO BEDTIME #14 tabs 02/18/25 ibuprofen 800 mg tablet 800 mg PO Q8H #20 tabs 02/18/25 lidocaine 5 % topical patch 1 patch topical DAILY #30 ea 02/18/25 cyclobenzaprine 10 mg tablet 10 mg PO TID PRN muscle spasm #20 03/13/25 tabs Allergies Allergy/AdvReac Type Severity Reaction Status Date / Time No Known Allergies Allergy Verified 03/13/25 09:30 [No Known Allergies*] Review of Systems Review of Systems: Constitutional : No Fever, No Chills ENT/Mouth : No Ear Pain, No Hoarseness, No sore throat Eyes: No Eye Pain, No Swelling, No Redness, No Foreign Body Cardiovascular : No Chest Pain, No SOB Respiratory : No Cough, No Dyspnea Gastrointestinal : No Nausea, No Vomiting, No Diarrhea, No abdominal Pain Genitourinary : No Dysuria, No Hematuria Musculoskeletal : positive joint pain, No Myalgias, No Joint Swelling Skin : No Skin lacerations, No rash Neuro : No Weakness, No Numbness, No Loss of Consciousness, No Dizziness, No Headache All other systems reviewed and are negative [facility] Past Medical History Attestation statement: The following information was validated with the patient. Source: old records reviewed Medical History Muscle strain of right shoulder Well woman exam Class 2 obesity with body mass index (BMI) of 36.0 to 36.9 in adult Nipple discharge, bloody Pelvic pain in female Galactorrhea Obese Surgical History Previous section Status post total abdominal hysterectomy Hx laparoscopic cholecystectomy Hx of appendectomy Family History Family History Father No problems noted. 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 Oriented X3. No acute distress. Eyes: Pupils equal, round and reactive to light. ENT: Pharynx normal. Neck: Normal inspection. Neck supple. CVS: Normal heart rate and rhythm. Pulses normal. Respiratory: No respiratory distress. Breath sounds normal. Abdomen: Soft and nontender. Skin: Skin warm and dry. Normal skin color. Normal skin turgor. Extremities: No lower extremity edema. R shoulder pain cannot range the shoulder or abduct against pressure. distal NV intact Neuro: Oriented X 3. No motor deficit. No sensory deficit. CN2-12 intact Course Course Course Narrative: 34 yo female here with c/o R shoulder pain x 3 weeks injury at work no xrays yet but has to call to get PT and see PCP. She has no numnbess or weakness. lifted someone and now has injury. Suspect rotator cuff injury. NV intact, xrays ordered this is a RAPID medical screening exam the rest of the history and physical exam is to be done by the main provider. MARY ANN 03/13/25 932am Medical Decision Making Medical Decision Making [facility] Narrative: 34 yo female with PMH of asthma who injured her R shoulder 3 weeks ago now here wanting xray - she is NV intact based off hx and exam I suspect more of a rotator cuff injury xray ordered, will make sure she has outpatient follow and start on flexeril Differential Diagnosis Differential Diagnoses: The differential diagnosis associated with the presen tation includes sprain, strain, rotator cuff injury Admission/Observation Consideration of admission/observation: Escalation of care including admission/observation considered can follow up as outpatient Independent Interpretation I performed an independent interpretation of an: Plain X-Ray (normal ) Radiology Impression Discussion of test interpretation with radiology: I have reviewed the radiologist's reading. External Record Review External record reviewed: Outpatient record Prescription Management I considered prescription management with: Pain Medication and Other Discharge Plan Discharge Clinical Impression: Shoulder sprain Qualifiers: Encounter type: initial encounter Shoulder sprain type: unspecified sprain Laterality: right Qualified Code(s): S43.401A - Unspecified sprain of right shoulder joint, initial encounter Patient Disposition: Home, Self-Care Instructions: Shoulder Sprain (ED) Additional Instructions: xray normal follow up with your doctor you will need physical therapy and likely further imaging Prescriptions: New cyclobenzaprine 10 mg tablet 10 mg PO TID PRN (Reason: muscle spasm) Qty: 20 0RF No Action hydroxyzine HCl 25 mg tablet 25 mg PO BID PRN (Reason: itching) Qty: 20 0RF ibuprofen 800 mg tablet 800 mg PO Q8H Qty: 20 0RF cyclobenzaprine 10 mg tablet 10 mg PO BEDTIME Qty: 14 0RF lidocaine 5 % adhesive patch,medicated 1 patch topical DAILY Qty: 30 0RF Rx Instructions: leave on most painful area for up to 12 hrs Stand Alone Forms: Work/School Release Print Language: Bulgarian
[2025-03-13 10:24] VITALS: BP 123/75; PULSE 80; RESP 16; TEMP 36.3; O2SAT 98
== END 2025-03-13 10:25 | disposition home or self-care (01) ==
LOC: HO.ED 10:25
PROVIDERS: Emergency Provider Emergency Medicine; PCP Internal Medicine
DX: S43.401A Unspecified sprain of right shoulder joint, initial encounter (principal); X50.0XXA Overexertion from strenuous movement or load, initial encounter; M25.511 Pain in right shoulder; Y93.89 Activity, other specified; Y92.59 Other trade areas as the place of occurrence of the external cause; Y99.0 Civilian activity done for income or pay
CPT/HCPCS: 73030; 99282; 99283

== ENCOUNTER → 2025-03-13 09:45 | Outpatient (BNV) | payer OTHER, SELFPAY | PROVIDERS: Emergency Provider Emergency Medicine; PCP Internal Medicine; Visit Provider Radiology Diagnostic Radiology | DX: M25.511 Pain in right shoulder (principal) | CPT/HCPCS: 73030 ==

== ENCOUNTER 2025-04-23 13:46 | Outpatient (RCR) | payer OTHER, SELFPAY ==
--- NOTE | 2025-03-28 14:54 | MHC.PT.EP ---
[facility] [place] Office [place] Office [address] Antonio Dorantes [address] [phone] F: [phone] F: [phone] F: [phone] F: [phone] Physical Therapy Plan of Care Date of Evaluation: 03/28/25 Date of Surgery: N/A Diagnosis: muscle strain of right shoulder (RL) Assessment: pt is a 34 y/o female presenting to physical therapy w/ referring diagnosis of muscle strain of right shoulder. Impairments include pain, decreased range of motion, decreased strength, impaired functional mobility, impaired postural awareness, and altered ambulation mechanics. pt is a good candidate for skilled PT due to age, potential remediation of impairments, typical disease/condition progression and prognosis, comorbidities, and motivation. pt would benefit from skilled PT intervention to provide a tailored strengthening and stretching exercise program, functional training, gait training, postural re-training, neuromuscular re-education, modalities as needed for pain, equipment safety demonstration. Frequency and Duration: The patient will be seen 2x/wk for 4 wks Short Term Goals: pt will be I w/ HEP to promote self-management of condition. pt will improve R shoulder flexion by at least 10* to promote ease in reaching for objects on higher shelves. Mold Holder Goals: pt will report a statistically significant improvement in self-reported outcome measure, SPADI, to promote return to PLOF. pt will demo proper lifting mechanics of 60-80# object x5 reps w/o verbal cueing to promote return to work-related tasks. Treatment Plan: Modalities to reduce pain, spasms and effusion. Manual therapy to restore motion and function. Therapeutic exercise to improve strength and flexibility. Neuromuscular re-education for posture and balance. Therapeutic activities to return to functional activities of daily living. Electronically signed by: Almaz Guerra PT, DPT Please sign and return to therapist. Thank you for your referral.
--- NOTE | 2025-06-05 11:36 | MHC.PT.DC ---
[facility] [place] Office [place] Office [place] Office [address] Antonio Dorantes [address] [facility] [phone] F: [phone] F: [phone] F: [phone] F: [phone] Physical Therapy Discharge Report Diagnosis: muscle strain of right shoulder (RL) Date of Surgery: N/A Date of Evaluation: 03/28/25 Date of Discharge: 06/05/25 Treatments to Date: 6 Cancellations to Date: 2 No Shows to Date: 1 Discharge Status: Visit Non-compliance Discharge Summary: The patient was reporting some improvement in shoulder pain with physical therapy intervention. Unfortunately, she no showed her last scheduled appointment and has not called to reschedule. She is discharged for non-compliance. Electronically signed by: Almaz Guerra PT, DPT Please sign and return to therapist. Thank you for your referral.
== END 2025-06-05 11:36 | disposition home or self-care (01) ==
LOC: HO.PT 13:46
PROVIDERS: PCP Internal Medicine; Visit Provider Nurse Practitioner Family
DX: M25.511 Pain in right shoulder (principal); S46.911D Strain of unspecified muscle, fascia and tendon at shoulder and upper arm level, right arm, subsequent encounter; X50.0XXD Overexertion from strenuous movement or load, subsequent encounter
CPT/HCPCS: 97110; 97140; 97161; 97164

== ENCOUNTER 2025-05-21 11:35 | Outpatient (AMB) | payer OTHER, SELFPAY ==
--- NOTE | 2025-05-21 12:02 | MHC.OFFVIS ---
Vital Signs 05/21/25 12:11 Height 5 ft 1 in Weight 186 lb BMI 35.1 Handedness Right Intake Visit Reasons: WC RT shoulder injury DOI 03/12/25 Intake Note: Cyrus is a 35 year old right hand dominant female who presents today for a evaluation of her right shoulder injury, DOI 02/20/25. Patient states that she lifted a couple 88lbs boxes and she felt a sharp pain in her shoulder. She states that the box that she had to carry insisted of two people to carry but her co workers didn't want to help so she ended up lifting the boxes on her own. She states that the first couple days of the injury her pain would go to her neck. Patient notices that her pain is worse when she is laying on her right side. She was given medication at the ED on 03/12/25 with relief. IMPRESSION: Normal right shoulder. Freight Handler Services: Freight Handler Present (Fab ([id number])) Allergies No Known Allergies (No Known Allergies*) Allergy (Verified 05/21/25 12:10) HPI HPI WC RT shoulder injury DOI 03/12/25: Details: Ms. Albert Avina is a 35-year-old right-hand dominant female who presents to the office today for evaluation of a right shoulder injury that she sustained at work on 02/20/2025. She states that she was lifting 88 lb boxes when she felt a sharp pain in the right shoulder. She reports initially the pain radiated from the shoulder into the neck. She has [facility] with no relief. [facility] Medical History Muscle strain of right shoulder Well woman exam Class 2 obesity with body mass index (BMI) of 36.0 to 36.9 in adult Nipple discharge, bloody Pelvic pain in female Galactorrhea Obese Surgical History Previous section Status post total abdominal hysterectomy Hx laparoscopic cholecystectomy Hx of appendectomy Family History Father No problems noted. 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 Able to reach back pocket with pain. Positive cross-body reach. 3/5 strength with empty can. Negative drop arm. NVI. Psych Appearance: grossly normal Mental Status: mental status grossly normal Attitude: cooperative Assessment & Plan Assessment & Plan (1) Painful arc syndrome of right shoulder: Code(s): M75.101 - Unspecified rotator cuff tear or rupture of right shoulder, not specified as traumatic Category: Medical Plan Ms. Albert Avina is a 35-year-old right-hand dominant female who presents to the office today for evaluation of a right shoulder injury that she sustained at work on 02/20/2025. She states that she was lifting 88 lb boxes when she felt a sharp pain in the right shoulder. She reports initially the pain radiated from the shoulder into the neck. She has [facility] with no relief. While in the office today we discussed obtaining an MRI to further evaluate the integrity of the right shoulder and surrounding structures. The patient has tried and failed [id number] pain relievers and anti-inflammatories with no relief. Additionally she has tried and failed physical therapy at [facility] with no relief. An MRI order has been placed at this time and the patient will follow up via telephone or in person for results and further discussion of the treatment plan. Patient understands and accepts. X-rays of the right shoulder were obtained on 03/13/2025 and were negative for any acute findings. Coding Level of Care Code New Pt Level 4 (49289) Diagnoses Painful arc syndrome of right shoulder M75.101
[2025-05-21 12:11] VITALS: BMI 35.1
== END 2025-05-21 12:22 | disposition home or self-care (01) ==
LOC: HO.HOS 11:36
PROVIDERS: PCP Internal Medicine; Visit Provider Physician Assistant
DX: M75.101 Unspecified rotator cuff tear or rupture of right shoulder, not specified as traumatic (principal)
CPT/HCPCS: 99204

== ENCOUNTER → 2025-05-21 11:35 | Outpatient (BNVA) | payer OTHER, SELFPAY | PROVIDERS: PCP Internal Medicine; Visit Provider Physician Assistant | DX: M25.511 Pain in right shoulder (principal); M75.101 Unspecified rotator cuff tear or rupture of right shoulder, not specified as traumatic | CPT/HCPCS: 99202 ==

== ENCOUNTER 2025-06-12 14:30 | Outpatient (AMB) | payer OTHER, SELFPAY ==
[2025-06-12 14:40] VITALS: BP 112/82; PULSE 78; O2SAT 97; BMI 35.9
--- NOTE | 2025-06-12 14:40 | A.OFFPC_ITS ---
Vital Signs 06/12/25 14:40 Height 5 ft 1 in Weight 190 lb BMI 35.9 BP 112/82 Blood Pressure Location Lt brachial Position Sitting Pulse 78 Pulse Source Pulse Oximeter Pulse Oximetry (%) 97 Oxygen Delivery Method Room Air Intake Visit Reasons: PE Intake Note: Patient is here to follow up on Body rash. Poultry Service Technician Required: No Poultry Service Technician Name: [place] ([id number]) Information Interpreted: non-clinical & clinical Irrigator: Not Required per policy Accompanied by: Self / Same As Patient Allergies No Known Allergies (No Known Allergies*) Allergy (Verified 06/12/25 14:56) Medication List - Last Reconciled 06/12/25 by Andressa Ca MD cyclobenzaprine 10 mg PO TID PRN cyclobenzaprine 10 mg PO BEDTIME hydroxyzine HCl 25 mg PO BID PRN ibuprofen 800 mg PO Q8H lidocaine 5% 1 patch topical DAILY Tobacco use date assessed: 06/12/25 Dental Screening Dental Screen Date: 06/12/25 Did you have a dental visit in the last 12 months?: Yes Did you have a dental problem in the last 6 months where you did not have access to dental care?: No Was dental information given to patient?: Patient has dentist HPI HPI Comments History of Present Illness Details The patient is a 35-year-old female presenting for a wellness visit and management of chronic conditions. The patient has a history of endometriosis, which has been a persistent issue. She mentioned that her insurance does not cover certain orthopedic consultations, which has delayed her treatment. She is awaiting approval for an MRI to further evaluate her condition. The patient also reports shoulder pain for which she was prescribed Flexeril and underwent physical therapy. The pain is associated with a previous injury, and she is currently managing it with medication and therapy. She has a history of ovarian cysts, with a previous cyst having ruptured. She experiences intermittent pain, which she describes as a hiccup-like sensation in the area. A previous ultrasound was performed vaginally due to poor visualization, and she is scheduled for a follow-up ultrasound. In terms of preventative care, the patient is up-to-date with her tetanus vaccination, last administered in 2018, and her Pap smear screenings. Her last laboratory results from the previous year were satisfactory. [facility] Medical History (Updated 06/12/25 @ 15:07 by Andressa Ca MD) Muscle strain of right shoulder Well woman exam Class 2 obesity with body mass index (BMI) of 36.0 to 36.9 in adult Nipple discharge, bloody Pelvic pain in female Galactorrhea Obese Surgical History Previous section Status post total abdominal hysterectomy Hx laparoscopic cholecystectomy Hx of appendectomy Family History Father No problems noted. 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 1. Little interest or pleasure in doing things: several days 2. Feeling down, depressed, or hopeless: not at all 3. Trouble falling or staying asleep, or sleeping too much: several days 4. Feeling tired or having little energy: not at all 5. Poor appetite or overeating: not at all 6. Feeling bad about yourself - or that you are a failure or have let yourself or your family down: not at all 7. Trouble concentrating on things, such as reading the newspaper or watching television: not at all 8. Moving or speaking so slowly that other people could have noticed. Or the opposite - being so fidgety or restless that you have been moving around a lot more than usual: not at all 9. Thoughts that you would be better off or of hurting yourself in some way: not at all Total score: 2 Depression Screening Interpretation: Negative Depression Screening Done: Yes 52906 - PHQ-9 Billing: Yes Source: Developed by Drs. Yoav LPeyton Armenta Kurt Kroenke and colleagues, with an educational tomas from [employer]. Thrive Questionnaire Date Thrive assessed: 06/12/25 I am a: Patient What is your living situation today?: I have a steady place to live Within the past 12 months, did the food you bought not last and you didn't have the money to get more?: I choose not to answer this question Within the past 12 months, did you worry whether your food would run out before you got money to buy more?: I choose not to answer this question Do you have trouble paying for medicines?: No Do you have trouble getting transportation to medical appointments?: No Do you have trouble paying your heating and electricity bill?: No Do you have trouble taking care of your child, family member or friend?: No Do you have trouble with day-to-day activities such as bathing, preparing meals, shopping, managing finances, etc.?: No Are you currently unemployed and looking for a job?: No Are you interested in more education?: No Please select the resources that you would like help with: None Currently or been in a relationship where the following occur: I choose not to answer THRIVE Score: 0 AUDIT C Alcohol Use Questionnaire (AUDIT-C) 1. How often do you have a drink containing alcohol?: Monthly or less 2. How many drinks containing alcohol do you have on a typical day when you are drinking?: 3 or 4 3. How often do you have six or more drinks on one occasion?: Never Total Score: 2 Score Reviewed/Action Taken: No DAISY-7 AMB Questionnaire DAISY-7 Date DAISY - 7 assessed: 06/12/25 Feeling nervous, anxious, or on edge: 0 = Not at all Not being able to stop or control worryin = Not at all Worrying too much about different things: 0 = Not at all Trouble relaxin = Not at all Being so restless that it is hard to sit still: 0 = Not at all Becoming easily annoyed or irritable: 1 = Several days Feeling afraid as if something awful might happen: 0 = Not at all Total DAISY-7 score (0-4 normal; 5-9 mild; 10-14 moderate; 15-21 severe): 1 Source: Developed by Peyton Azul. Jose Rafael, Leonel Cuello and colleagues, with an educational tomas from [employer]. DAISY-7 Assessment Billing DAISY-7 Assessment Tool: DAISY-7 Assessment 85942 Review of Systems Const All systems reviewed & are unremarkable except as noted in HPI and below Card Denies chest pain at rest, Denies chest pain with activity, Denies edema, Denies irregular heart rhythm, Denies claudication, Denies dyspnea, Denies dyspnea on exertion, Denies orthopnea, Denies paroxysmal nocturnal dyspnea and Denies slow heart rate Resp Denies cough, Denies dyspnea and Denies dyspnea on exertion GI Denies abdominal pain, Denies change in bowel habits, Denies excessive flatus, D enies nausea and Denies vomiting Physical exam (Primary Care) Vital Signs: Last Vital Signs Pulse 78 06/12/25 14:40 BP 112/82 06/12/25 14:40 Pulse Ox 97 06/12/25 14:40 Oxygen Delivery Method Room Air 06/12/25 14:40 BMI result Body Mass Index 35.9 Tobacco/Smoking Status: Tobacco use Status Tobacco use date assessed 06/12/25 06/12/25 14:47 Patient Tobacco Use Status Current everyday Tobacco 06/12/25 14:47 Tobacco use type Cigarette 06/12/25 14:47 e-Cigarette/Vaping Use Never Used 06/12/25 14:47 PHQ-9: PHQ-9 Score PHQ-9: Total score 2 06/12/25 15:01 Depression Screening Interpretation: Negative Thrive Assessment: Date of Thrive Assessment Date Thrive assessed 06/12/25 06/12/25 14:47 Currently or been in a relationship where the following occur: I choose not to answer [facility] General nose exam: Normal external nose present and No nasal discharge present Face and sinus: Yes sinuses nontender Mouth: lip normal Eyes General: appearance normal, both eyes and all related structures Eyelids: Yes eyelids normal Conjunctivae: conjunctivae normal Neck Neck: Yes normal visual inspection and Yes supple Resp Effort & Inspection: normal respiratory effort Auscultation: clear to auscultation bilaterally Cardio Jugular venous distension: no JVD Rate: regular rate Rhythm: regular rhythm Heart sounds: S1 normal heart sound present and S2 normal heart sound present GI Inspection: Yes normal to inspection Palpation (GI): Soft to palpation and nontender Auscultation: normal bowel sounds Skin General skin exam: no rashes or lesions noted Neuro General: no focal motor deficits Extrem General: Yes full ROM Psych Appearance: grossly normal Coding Level of Care Code Est Pt Level 3 (18093) Est Pt Prev Care 18-39y(58705) Diagnoses Physical exam Z00.00 Pelvic pain in female R10.2 Additional Codes DAISY-7 Assessment Billing - DAISY-7 Assessment Tool: DAISY-7 Assessment 86894 ([id number]) PHQ-9 - 76947 - PHQ-9 Billing: Yes ([id number]) Time Spent (min) 31 Assessment & Plan Assessment & Plan (1) Physical exam: Code(s): Z00.00 - Encounter for general adult medical examination without abnormal findings Category: Medical (2) Pelvic pain in female: Code(s): R10.2 - Pelvic and perineal pain Category: Medical Plan Plan Patient was informed and verbally consented to the use of an ambient scribe for clinic note documentation during this visit. 1. Pelvic and perineal pain R10.2 The patient is awaiting an MRI to further evaluate her endometriosis, as insurance coverage issues have delayed orthopedic consultations. A follow-up ultrasound has been ordered to assess the current status of her condition. 2. Encounter for general adult medical examination without abnormal findings Z00.00 Orders: Orders US pelvic and transvaginal Today R10.2 - Pelvic and perineal pain
== END 2025-06-12 15:19 | disposition home or self-care (01) ==
LOC: HO.HMCH 14:31
PROVIDERS: PCP Internal Medicine; Visit Provider Internal Medicine
DX: Z00.00 Encounter for general adult medical examination without abnormal findings (principal); R10.2 Pelvic and perineal pain

== ENCOUNTER → 2025-06-12 14:30 | Outpatient (BNVA) | payer OTHER, SELFPAY | PROVIDERS: PCP Internal Medicine; Visit Provider Internal Medicine | DX: Z00.00 Encounter for general adult medical examination without abnormal findings (principal); R10.2 Pelvic and perineal pain | CPT/HCPCS: 96127; 99212; 99395 ==

== ENCOUNTER 2025-07-01 13:20 | Outpatient (AMB) | payer OTHER, SELFPAY ==
--- NOTE | 2025-07-01 13:46 | MHC.OFFWIV ---
Intake Vital Signs 07/01/25 13:47 Height 5 ft 1 in Weight 193 lb BMI 36.5 BP 112/60 Blood Pressure Location Lt brachial Position Sitting Pulse 85 Pulse Source Pulse Oximeter Temp 98.8 F Temp Source Oral Pulse Oximetry (%) 99 Oxygen Delivery Method Room Air Intake Visit Reasons: EP Neck/shoulder pain Intake Note: pt presents with non resolving right neck pain radiating into right shoulder and right arm- stops at mid uppper arm Patient Tobacco Use Status: Current everyday Tobacco user Allergies No Known Allergies (No Known Allergies*) Allergy (Verified 07/01/25 13:48) Do you need a note to return to daycare/school/sports/work: Yes HPI HPI Comments History of Present Illness Details 35 y/o Guatemalan speaking Female who presents to the walk in clinic with c/o right shoulder pain that radiates to the neck. This is chronic and persistent for few months now. She was seen by me back in 02/2025 for similar concern and X-rays shoulder/Neck were unremarkable. She has been Pain medications with good relief. She does have an appointment with Orthopedics - 07/08/25 She did have PT with minimal relief. [facility] Medical History Muscle strain of right shoulder Well woman exam Class 2 obesity with body mass index (BMI) of 36.0 to 36.9 in adult Nipple discharge, bloody Pelvic pain in female Galactorrhea Obese Surgical History Previous section Status post total abdominal hysterectomy Hx laparoscopic cholecystectomy Hx of appendectomy Family History Father No problems noted. 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 Current occupational exposures/hazards: No Cognitive needs: No Hearing needs: No Vision needs: No Review of Systems Const All systems reviewed & are unremarkable except as noted in HPI and below Physical Exam Vital Signs: Last Vital Signs Temp 98.8 F 07/01/25 13:47 Pulse 85 07/01/25 13:47 BP 112/60 07/01/25 13:47 Pulse Ox 99 07/01/25 13:47 Oxygen Delivery Method Room Air 07/01/25 13:47 BMI result Body Mass Index 36.5 Const General: no acute distress Nutritional Appearance: overweight Orientation/consciousness: patient oriented x3 Back/Spine/Pelvis Cervical Spine: cervical muscular tenderness, cervical spasm and Cervical spine tenderness Neuro General: patient oriented x3, gait normal and moves all extremities Extrem Right upper extremity: shoulder/upper arm Details: normal to inspection, tenderness Location: of the clavicle, of the proximal humerus and of the scapula and normal ROM; no swelling and no crepitus Psych Speech and movement: Normal speech and movement present Assessment & Plan Assessment & Plan (1) Muscle strain of right shoulder: Code(s): S46.911A - Strain of unspecified muscle, fascia and tendon at shoulder and upper arm level, right arm, initial encounter Qualifiers: Encounter type: initial encounter Qualified Code(s): S46.911A - Strain of unspecified muscle, fascia and tendon at shoulder and upper arm level, right arm, initial encounter Plan: Ordered Ibuprofen and Lido Patches for pain relief. F/U with Orthopedics as scheduled. Ice/Hot Medications: Refilled ibuprofen 800 mg PO Q8H 20 tabs 0RF S46.911A - Strain of unspecified muscle, fascia and tendon at shoulder and upper arm level, right arm, initial encounter lidocaine 5% leave on most painful area for up to 12 hrs 1 patch topical DAILY 30 ea 0RF S46.911A - Strain of unspecified muscle, fascia and tendon at shoulder and upper arm level, right arm, initial encounter Coding Level of Care Code Est Pt Level 4 (58529) Diagnoses Muscle strain of right shoulder, initial encounter S46.911A Encounter type: initial encounter Time Spent (min) 20
[2025-07-01 13:47] VITALS: BP 112/60; PULSE 85; TEMP 37.1; O2SAT 99; BMI 36.5
== END 2025-07-01 15:58 | disposition home or self-care (01) ==
PROVIDERS: Visit Provider Nurse Practitioner Family
DX: S46.911A Strain of unspecified muscle, fascia and tendon at shoulder and upper arm level, right arm, initial encounter (principal)

== ENCOUNTER → 2025-07-01 13:20 | Outpatient (BNVA) | payer OTHER, SELFPAY | PROVIDERS: Visit Provider Nurse Practitioner Family | DX: S46.911A Strain of unspecified muscle, fascia and tendon at shoulder and upper arm level, right arm, initial encounter (principal); M54.2 Cervicalgia; X58.XXXA Exposure to other specified factors, initial encounter; Y93.9 Activity, unspecified; Y92.9 Unspecified place or not applicable; Y99.9 Unspecified external cause status | CPT/HCPCS: 99212 ==

== ENCOUNTER 2025-07-03 15:46 | Outpatient (AMB) | payer OTHER, SELFPAY ==
[2025-07-03 15:54] VITALS: BP 110/60; PULSE 79; RESP 18; TEMP 36.3; O2SAT 97; BMI 36.3
--- NOTE | 2025-07-03 15:54 | A.OFFPC_ITS ---
Vital Signs 07/03/25 15:54 Height 5 ft 1 in Weight 192 lb 2 oz BMI 36.3 BP 110/60 Blood Pressure Location Lt brachial Position Sitting Respiration 18 Pulse 79 Pulse Source Pulse Oximeter Temp 97.3 F Temp Source Temporal Artery Scan Pulse Oximetry (%) 97 Oxygen Delivery Method Room Air Intake Visit Reasons: Neck and shoulder pain Flight Attendant Ramp Required: No Accompanied by: Self / Same As Patient Allergies No Known Allergies (No Known Allergies*) Allergy (Verified 07/03/25 16:14) Medication List - Last Reconciled 07/03/25 by Andressa Ca MD cyclobenzaprine 5 mg PO BEDTIME hydroxyzine HCl 25 mg PO BID PRN ibuprofen 800 mg PO Q8H lidocaine 5% 1 patch topical DAILY Tobacco use date assessed: 07/03/25 Dental Screening Dental Screen Date: 07/03/25 Did you have a dental visit in the last 12 months?: Yes Did you have a dental problem in the last 6 months where you did not have access to dental care?: No Was dental information given to patient?: Patient has dentist HPI HPI Comments History of Present Illness Details This is a 35-year-old female with obesity that comes today complaining of neck pain that radiates to both arms and is associated with bilateral leg numbness and tingling most likely due to cervical radiculopathy. She also has right shoulder pain and is receiving physical therapy. She does have a muscle spasm and is on Flexeril as needed at bedtime. She is obese with a BMI of 36.3 and was advised to do diet and exercise. Will see ortho soon for her shoulder. Will add diclofenac gel. [facility] Medical History (Updated 07/03/25 @ 16:45 by Andressa Ca MD) Class 2 obesity with body mass index (BMI) of 36.0 to 36.9 in adult Muscle strain of right shoulder Well woman exam Nipple discharge, bloody Pelvic pain in female Galactorrhea Obese Surgical History Previous section Status post total abdominal hysterectomy Hx laparoscopic cholecystectomy Hx of appendectomy Family History Father No problems noted. 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 Current occupational exposures/hazards: No Cognitive needs: No Hearing needs: No Vision needs: No Questionnaire Thrive Questionnaire Date Thrive assessed: 02/11/25 I am a: Patient What is your living situation today?: I have a steady place to live Within the past 12 months, did the food you bought not last and you didn't have the money to get more?: I choose not to answer this question Within the past 12 months, did you worry whether your food would run out before you got money to buy more?: I choose not to answer this question Do you have trouble paying for medicines?: No Do you have trouble getting transportation to medical appointments?: No Do you have trouble paying your heating and electricity bill?: No Do you have trouble taking care of your child, family member or friend?: No Do you have trouble with day-to-day activities such as bathing, preparing meals, shopping, managing finances, etc.?: No Are you currently unemployed and looking for a job?: No Are you interested in more education?: No Please select the resources that you would like help with: None Currently or been in a relationship where the following occur: I choose not to answer THRIVE Score: 0 DAISY-7 AMB Questionnaire DAISY-7 Date DAISY - 7 assessed: 06/12/25 Source: Developed by Drs. Yoav Crump, Peyton Mantilla, Leonel Cuello and colleagues, with an educational tomas from [employer] Review of Systems Const All systems reviewed & are unremarkable except as noted in HPI and below ENT Reports neck pain Card Denies chest pain at rest, Denies chest pain with activity, Denies edema, Denies irregular heart rhythm, Denies claudication, Denies dyspnea, Denies dyspnea on exertion, Denies orthopnea, Denies paroxysmal nocturnal dyspnea and Denies slow heart rate Resp Denies cough, Denies dyspnea and Denies dyspnea on exertion GI Denies abdominal pain, Denies change in bowel habits, Denies excessive flatus, Denies nausea and Denies vomiting Denies urinary incontinence, Denies urinary hesitancy and Denies urinary urgency Musc Reports arthralgias, Reports neck pain and Reports numbness Neuro Reports numbness Physical exam (Primary Care) Vital Signs: Last Vital Signs Temp 97.3 F 07/03/25 15:54 Pulse 79 07/03/25 15:54 Resp 18 07/03/25 15:54 BP 110/60 07/03/25 15:54 Pulse Ox 97 07/03/25 15:54 Oxygen Delivery Method Room Air 07/03/25 15:54 BMI result Body Mass Index 36.3 Tobacco/Smoking Status: Tobacco use Status Tobacco use date assessed 07/03/25 07/03/25 16:01 Patient Tobacco Use Status Current everyday Tobacco 07/03/25 16:01 Tobacco use type Cigarette 07/03/25 16:01 e-Cigarette/Vaping Use Never Used 07/03/25 16:01 Thrive Assessment: Date of Thrive Assessment Date Thrive assessed 02/11/25 07/03/25 16:01 Currently or been in a relationship where the following occur: I choose not to a nswer Resp Effort & Inspection: normal respiratory effort Auscultation: clear to auscultation bilaterally Cardio Jugular venous distension: no JVD Rate: regular rate Rhythm: regular rhythm Heart sounds: S1 normal heart sound present and S2 normal heart sound present Extrem General: Yes full ROM Coding Level of Care Code Est Pt Level 4 (97528) Complex EM visit Add On G2211 Diagnoses Right shoulder pain M25.511 Cervical radiculopathy M54.12 Muscle spasm M62.838 Class 2 obesity with body mass index (BMI) of 36.0 to 36.9 in adult E66.9; Z68.36 Time Spent (min) 20 Assessment & Plan Assessment & Plan (1) Right shoulder pain: Code(s): M25.511 - Pain in right shoulder Category: Medical (2) Cervical radiculopathy: Code(s): M54.12 - Radiculopathy, cervical region Category: Medical (3) Muscle spasm: Code(s): M62.838 - Other muscle spasm Category: Medical (4) Class 2 obesity with body mass index (BMI) of 36.0 to 36.9 in adult: Code(s): E66.9 - Obesity, unspecified; Z68.36 - Body mass index [BMI] 36.0-36.9, adult Category: Medical Plan Start diclofenac gel. Follow-up with ortho. Continue current meds. Orders: Referrals Ophthalmology Referral H53.8 - Other visual disturbances Medications: New diclofenac sodium 1% (Arthritis Pain (diclofenac)) apply to single elbow, wrist or hand; for hand includes palm/fingers/back of hand 2 grams topical QID PRN 100 grams 1RF pain 30 days
== END 2025-07-03 16:25 | disposition home or self-care (01) ==
PROVIDERS: PCP Internal Medicine; Visit Provider Internal Medicine
DX: M25.511 Pain in right shoulder (principal); M54.12 Radiculopathy, cervical region; M62.838 Other muscle spasm; Z04.2 Encounter for examination and observation following work accident

== ENCOUNTER → 2025-07-03 15:46 | Outpatient (BNVA) | payer OTHER, SELFPAY | PROVIDERS: PCP Internal Medicine; Visit Provider Internal Medicine | DX: M54.12 Radiculopathy, cervical region (principal); E66.9 Obesity, unspecified; M25.511 Pain in right shoulder; M62.838 Other muscle spasm; Z68.36 Body mass index [BMI] 36.0-36.9, adult; Z79.899 Other long term (current) drug therapy | CPT/HCPCS: 99212 ==

== ENCOUNTER 2025-09-18 13:38 | Outpatient (REF) | payer OTHER, SELFPAY ==
--- NOTE | ~2025-09-18 | US_ITS ---
EXAMINATION: US PELVIS CLINICAL INFORMATION: Pelvic and perineal pain. Status post hysterectomy. COMPARISON: August 24, 2023. TECHNIQUE: Ultrasound of the pelvis is performed using both transabdominal and transvaginal transducers along with Doppler. Transvaginal imaging is performed due to inadequate visualization transabdominally. FINDINGS: Cervix measures 3 cm in maximum length with likely nabothian cysts. Adnexa: The ovaries are identified with symmetric flow distribution on color Doppler interrogation.. There is a 1.3 cm irregular shaped anechoic structure in the left ovary. Scattered follicles throughout the ovaries. No free fluid in the cul-de-sac. Right ovary measures 2 x 1 x 1 cm. Volume: 2 cc. Left ovary measures 3 x 2 x 2 cm. Volume: 7 cc. US/US pelvic and transvaginal IMPRESSION: 1.3 cm dominant follicle, left ovary. No ovarian torsion. Probable nabothian cyst, cervix. Electronically signed by: Rowdy Duarte MD 09/18/2025 03:19 PM [facility] [place]
== END 2025-09-18 13:39 | disposition home or self-care (01) ==
LOC: HO.US 13:38
PROVIDERS: PCP Internal Medicine; Visit Provider Internal Medicine
DX: R10.20 Pelvic and perineal pain unspecified side (principal)
CPT/HCPCS: 76830; 76856

== ENCOUNTER → 2025-09-18 13:44 | Outpatient (BNV) | payer OTHER, SELFPAY | PROVIDERS: PCP Internal Medicine; Visit Provider Radiology Diagnostic Radiology | DX: N83.02 Follicular cyst of left ovary (principal) | CPT/HCPCS: 76830; 76856 ==